=== PATIENT | female | born 1945 | race Caucasian/White ===

== ENCOUNTER 2018-11-05 00:54 | Inpatient (IN) | payer MEDICARE, MEDICAID, OTHER, SELFPAY ==
[2018-11-05] VITALS (17 sets, daily range): BP systolic 90–146; BP diastolic 50–97; PULSE 75–121; RESP 16–40; TEMP 36.2–37.1; O2SAT 85–99; BMI 17.4
--- NOTE | 2018-11-05 01:00 | ED.SOB ---
HPI - SOB/Dyspnea General Chief Complaint: Shortness of Breath/Dyspnea Stated Complaint: Wheezing, Hx COPD Time Seen by Provider: 11/05/18 01:00 Source: EMS Mode of arrival: EMS Limitations: language barrier History of Present Illness The patient resides at [facility]. She has a history of COPD. She has been ill for 4 days, with cough. Dyspnea has increased, tonight with labored breathing. Paramedics were summoned. She has not been receiving regular nebulizers. She presented with dyspnea, and initial O2 sat of 85% on room air. A single nebulizer treatment was administered prior to transfer here. The patient responds with gastric, she obeys commands. She has expressive aphasia, and does not verbally communicate well. She does not indicate chest pain. She does have cough and difficulty breathing. It is not clear, paramedics did not notice purulent phlegm. There was no report of fever with the above symptoms. She is occasionally put on oxygen supplements for care at the nursing facility. Related Data Home Medications Medication Instructions Recorded Confirmed albuterol sulfate [Ventolin HFA] 2 inh IH BIDP PRN #0 01/21/12 11/05/18 paroxetine HCl [Paxil] 5 mg Q DAY #0 01/21/12 11/05/18 acetaminophen 325 mg PO Q4H PRN 11/05/18 11/05/18 albuterol sulfate 2.5 mg INHALATION DAILY 11/05/18 11/05/18 aspirin 81 mg PO DAILY 11/05/18 11/05/18 fluticasone [Flovent HFA] 1 puff INHALATION BID 11/05/18 11/05/18 guaifenesin 1,200 mg PO BID 11/05/18 11/05/18 guaifenesin [Mucinex] 600 mg PO Q12H 11/05/18 11/05/18 ibuprofen 600 mg PO QID PRN 11/05/18 11/05/18 lorazepam 0.5 mg PO DAILY 11/05/18 11/05/18 oxycodone-acetaminophen [Percocet] 1 tab PO Q4HP PRN 11/05/18 11/05/18 pyridoxine (vitamin B6) [Vitamin 50 mg PO DAILY 11/05/18 11/05/18 B-6] Allergies Allergy/AdvReac Type Severity Reaction Status Date / Time naproxen Allergy Intermediate WEAKNESS Verified 11/05/18 01:15 AND SEVERE ITCHING penicillin G Allergy Intermediate SKIN Verified 11/05/18 01:15 REACTION, BURNING PEELING SKIN codeine AdvReac Mild STOMACH Verified 11/05/18 01:15 milk AdvReac Unknown LACTOSE Verified 11/05/18 01:15 INTOLERANCE Review of Systems Review of Systems ROS Unobtainable: Other (ROS is limited due to the patient's ability to communicate.) Constitutional Denies chills and Denies fever(s) Cardiovascular Denies chest pain and Reports dyspnea Respiratory Reports dyspnea PFSH Medical History Expressive aphasia (Acute) COPD (chronic obstructive pulmonary disease) (Acute) Social History Smoking Status: Former smoker Exam Initial Vital Signs Initial Vital Signs: Vital Signs Temperature 98.7 F 11/05/18 01:00 Pulse Rate 121 H 11/05/18 01:00 Respiratory Rate 19 11/05/18 01:00 Blood Pressure 140/59 L 11/05/18 01:00 Pulse Oximetry 92 11/05/18 01:00 Const General: cooperative and in distress Nutritional Appearance: malnourished HENDE Mouth: oral mucosae normal Eyes Conjunctivae: conjunctivae normal Neck Neck: supple, No tender and No JVD Chest Chest: normal inspection of the chest Resp Effort & Inspection: audible wheezes (Diffuse.) Auscultation: diminished lung sounds Cardio Rate: tachycardic Rhythm: regular rhythm Heart Sounds: S1 normal, S2 normal, no click, no gallops and no murmurs GI Inspection: normal to inspection and other (No palpable tenderness) Palpation: soft and No guarding Auscultation: normal bowel sounds Skin General: no rashes or lesions noted Extrem General: normal to inspection, no pedal edema and other Course Orders Ordered: ED Orders 11/05/18 00:48 B Type Natriuretic Peptide Stat Basic Metabolic Panel Stat Complete Blood Count AUTO DIFF Stat Magnesium Stat Troponin & CK Cardiac Panel Stat 11/05/18 01:04 Consult to Respiratory Therapy Evaluate & Treat EKG-12 Lead Stat 11/05/18 01:05 XR chest 1V Stat 11/05/18 01:45 Lactate (Lactic Acid) Stat 11/05/18 01:50 Influenza A and B by PCR Rapid Stat 11/05/18 01:58 Blood Culture Stat Discontinued Medications Albuterol (Ventolin) 2.5 mg INH NOW ONE Stop: 11/05/18 01:05 Last Admin: 11/05/18 01:08 Dose: 2.5 mg Albuterol/Ipratropium (Duoneb) 3 ml INH NOW ONE Stop: 11/05/18 01:05 Last Admin: 11/05/18 01:08 Dose: 3 ml Methylprednisolone (Solu-Medrol 125 Mg Vial) 125 mg IV NOW ONE Stop: 11/05/18 01:05 Last Admin: 11/05/18 01:18 Dose: 125 mg Vital Signs - 8 hr 11/05/18 01:00 11/05/18 01:04 11/05/18 01:06 Temperature 98.7 F 98.7 F Pulse Rate 121 H 117 H 121 H Respiratory Rate 19 40 H 19 Blood Pressure 140/59 L Blood Pressure [Left Arm] 140/59 L Pulse Oximetry 92 95 99 11/05/18 01:30 11/05/18 02:11 11/05/18 03:13 Temperature Pulse Rate 120 H 121 H 109 H Respiratory Rate 30 H 25 H 22 Blood Pressure Blood Pressure [Left Arm] 121/91 H 108/52 L 108/51 L Pulse Oximetry 95 94 92 11/05/18 04:13 11/05/18 04:52 Temperature Pulse Rate 101 H 101 H Respiratory Rate 20 24 Blood Pressure 126/55 L Blood Pressure [Left Arm] 112/62 Pulse Oximetry 85 L 95 MDM - SOB/Dyspnea Lab Data Result diagrams: 11/05/18 00:48 11/05/18 00:48 Lab Results 11/05/18 11/05/18 11/05/18 Range/Units 00:48 00:48 01:45 WBC 10.3 (4.5-11.0) X10^3/uL RBC 4.95 (4.0-5.2) X10^6/uL Hgb 15.0 (12.0-16.0) g/dL Hct 45.7 (36-46) % MCV 92.4 (80-100) fL MCH 30.4 (26-34) PG MCHC 32.9 (30-36) % RDW 14.6 (11.6-14.8) % Plt Count 249 (150-400) X10^3/uL Neut % (Auto) 78.4 H (50-75) % Lymph % (Auto) 11.3 L (25-40) % Ponce % (Auto) 9.3 (3-14) % Eos % (Auto) 0.8 L (2-4) % Baso % (Auto) 0.2 (0-2) % Neut # (Auto) 8100 H (6942-0806) /uL Lymph # (Auto) 1200 (1808-8236) /uL Ponce # (Auto) 1000 H (0-900) /uL Eos # (Auto) 100 (0-450) /uL Baso # (Auto) 0 (0-100) /uL Sodium 137 (137-145) mmol/L Potassium 4.3 (3.4-5.1) mmol/L Chloride 97 L (98-107) mmol/L Carbon Dioxide 30 (22-32) mmol/L BUN 13 (7-17) mg/dL Creatinine 0.60 (0.52-1.04) mg/dL Estimated GFR > 60.0 (>60) mL/min BUN/Creatinine Ratio 21.7 (6-22) Glucose 134 H (80-110) mg/dL Lactate 1.4 (0.7-2.1) mmol/L Calcium 9.5 (8.4-10.2) mg/dL Magnesium 1.7 (1.6-2.3) mg/dL Total Creatine Kinase 104 (30-135) U/L CK-MB (CK-2) 3.90 H (<2.37) ng/mL CK-MB (CK-2) Rel Index 3.8 (1.5-5.0) % Troponin I < 0.012 (0.01-0.034) ng/mL B-Natriuretic Peptide < 100 (<100) Influenza A & B (PCR) (Negative) 11/05/18 Range/Units 01:50 WBC (4.5-11.0) X10^3/uL RBC (4.0-5.2) X10^6/uL Hgb (12.0-16.0) g/dL Hct (36-46) % MCV (80-100) fL MCH (26-34) PG MCHC (30-36) % RDW (11.6-14.8) % Plt Count (150-400) X10^3/uL Neut % (Auto) (50-75) % Lymph % (Auto) (25-40) % Ponce % (Auto) (3-14) % Eos % (Auto) (2-4) % Baso % (Auto) (0-2) % Neut # (Auto) (1323-0171) /uL Lymph # (Auto) (7242-6500) /uL Ponce # (Auto) (0-900) /uL Eos # (Auto) (0-450) /uL Baso # (Auto) (0-100) /uL Sodium (137-145) mmol/L Potassium (3.4-5.1) mmol/L Chloride (98-107) mmol/L Carbon Dioxide (22-32) mmol/L BUN (7-17) mg/dL Creatinine (0.52-1.04) mg/dL Estimated GFR (>60) mL/min BUN/Creatinine Ratio (6-22) Glucose (80-110) mg/dL Lactate (0.7-2.1) mmol/L Calcium (8.4-10.2) mg/dL Magnesium (1.6-2.3) mg/dL Total Creatine Kinase (30-135) U/L CK-MB (CK-2) (<2.37) ng/mL CK-MB (CK-2) Rel Index (1.5-5.0) % Troponin I (0.01-0.034) ng/mL B-Natriuretic Peptide (<100) Influenza A & B (PCR) Negative (Negative) Imaging Data Chest x-ray: Attestation: I personally reviewed and interpreted this imaging study as follows: (Advanced COPD with hyperinflation and flattening of the diaphragms. No infiltrate seen. No change since her last chest x-ray.) ECG Data Attestation: I personally reviewed and interpreted this ECG as follows: (Sinus tachycardia rate 128. Diffuse ST depression, no ST elevation. No ectopy. Normal intervals.) [facility] Narrative Medical decision making narrative: The patient has COPD. She has had cough for 4 days, O2 sats decreased 85% when paramedics arrived. Oxygenation improved with neb treatments as well as O2 given by NG. COPD exacerbation was obvious on the initial presentation to ER. She was treated with repeat nebulized treatments as well as IV Solu-Medrol. Labs and chest x-ray showed no evidence of acute infection. She does not have influenza. Although improved on exam with clear lungs, her O2 sats dropped to 85% on room air. She still complains of dyspnea. With O2 nasal cannula her back in place, her O2 sats are back up to 92%. She will require admission for ongoing management of COPD and to improve. I contacted the hospitalist, ESTELLA Mark. The patient will be admitted Discharge Plan Departure Patient Disposition: Admitted as Observation Clinical Impression: Acute exacerbation of chronic obstructive pulmonary disease (COPD) Discharge Date/Time: 11/05/18 05:02 Interventions: ED Discharge Assessment Last Done: 11/05/18 04:52 Admit Date/Time: 11/05/18 04:56 Admit Provider: Graciela Mark
--- NOTE | 2018-11-05 01:05 | DI.RAD.S_ITS ---
PROCEDURE: XR CHEST 1V INDICATIONS: Dyspnea. History of Chronic obstructive pulmonary disease TECHNIQUE: One view of the chest was acquired. COMPARISON: [facility], CHEST 1 VIEW, 03/31/2017, 5:46. [facility], , CHEST 1 VIEW, 03/28/2017, 11:49. FINDINGS: Surgical changes and devices: None. Lungs and pleura: No pleural effusions or pneumothorax. Lungs are hyperexpanded and no mass or pneumonia is found. Mediastinum: Mediastinal contours appear normal. Heart size is normal. Bones and chest wall: No suspicious bony lesions. Overlying soft tissues appear unremarkable. IMPRESSION: No roll changer time, COPD, no pneumonia. Dictated by: Cory Kelly M.D. on 11/05/2018 at 7:40 Approved by: Cory Kelly M.D. on 11/05/2018 at 7:41
[2018-11-05] MEDS: ALBUTEROL 2.5 MG/3 ML NEB (ADULT) INH (01:08)
[2018-11-05] MEDS: ALBUTEROL/IPRATROPIUM 3 ML AMPUL INH ×4 (01:08→16:23)
[2018-11-05 01:16] LABS: Add Manual Diff / Slide Review NO; Basophils Absolute Auto 0 /uL (0-100); Basophils Percent Auto 0.2 % (0-2); Eosinophils Absolute Auto 100 /uL (0-450); Eosinophils Percent Auto 0.8 % (2-4); Hematocrit 45.7 % (36-46); Lymphocytes Absolute Auto 1200 /uL (1100-4500); Lymphocytes Percent Auto 11.3 % (25-40); Mean Corpuscular HGB Conc 32.9 % (30-36); Mean Corpuscular Hemoglobin 30.4 PG (26-34); Mean Corpuscular Volume 92.4 fL (80-100); Monocytes Absolute Auto 1000 /uL (0-900); Monocytes Percent Auto 9.3 % (3-14); Neutrophils Absolute Auto 8100 /uL (1500-7000); Neutrophils Percent Auto 78.4 % (50-75); Platelet Count 249 X10^3/uL (150-400); Red Blood Cell Count 4.95 X10^6/uL (4.0-5.2); Red Cell Distribution Width 14.6 % (11.6-14.8); White Blood Cell Count 10.3 X10^3/uL (4.5-11.0)
[2018-11-05 01:18] LABS: BUN Creatinine Ratio 21.7 (6-22); Blood Urea Nitrogen 13 mg/dL (7-17); Calcium 9.5 mg/dL (8.4-10.2); Carbon Dioxide 30 mmol/L (22-32); Chloride 97 mmol/L (98-107); Creatine Kinase 104 U/L (30-135); Estimated Glomerular Filt Rate > 60.0 mL/min (>60); Glucose 134 mg/dL (80-110); Magnesium 1.7 mg/dL (1.6-2.3); Potassium 4.3 mmol/L (3.4-5.1); Sodium 137 mmol/L (137-145)
[2018-11-05] MEDS: methylPREDNISolone 125 MG/2 ML VIAL IV (01:18)
[2018-11-05 01:25] LABS: HEMOLYSIS 57 (0-50)
[2018-11-05 01:33] LABS: CKMB % Relative Index 3.8 % (1.5-5.0)
[2018-11-05 01:37] LABS: Troponin I < 0.012 ng/mL (0.01-0.034)
[2018-11-05 01:48] LABS: B Type Natriuretic Peptide < 100 (<100)
[2018-11-05 02:05] LABS: Lactate (Lactic Acid) 1.4 mmol/L (0.7-2.1)
[2018-11-05 02:11] LABS: Influenza A and B by PCR Rapid Negative (Negative)
--- NOTE | 2018-11-05 04:55 | P.HP_ITS ---
History of Present Illness Chief complaint: Wheezing, Hx COPD Narrative: The patient is a 73-year-old female who presented to the ED on 11/05/2018 at approximately 0100 with shortness of breath. Patient's PMH is significant for COPD, nocturnal O2 dependence, PRIOR history of tobacco dependence, and anxiety / depression. Initial symptom noted to be cough, chest congestion, and inability to bring up phlegm. She was instructed to increase fluid intake by provider at [facility] where she resides. No other interventions noted. Patient continues to have a cough, now w / increased frequency and difficulty expectorating phlegm. Associated symptoms include exertional dyspnea, increase use of O2 (now during the day and night), chest discomfort with cough only, dizziness / lightheadedness, cramping of lower extremities, and increase in fatigue. Denies fever, chills, chest pressure / tightness, hemoptysis, palpitations, unilateral leg edema, syncopal events, dyspepsia, nausea, or vomiting. Denies symptoms of cystitis and symptoms of blood loss per rectum. Reports diminished appetite and fluid intake. COPD is well controlled by reports, typically has 0-1 exacerbations per year. This is her first exacerbation this year. Reports up-to-date status on PNA and influeza vaccination. No prior h/o PE or DVT, cardiac problems, or cerebrovascular disease. Known to have baseline expressive aphasia (reason is not clear). Has not experienced focal deficits or unilateral weakness. Presented to the ED with tachycardia, tachypnea, labored respiratory effort / accessory muscle use, wheezing and hypoxia (SpO2 85% on RA). Cognition intact w / confusion or lethargy. Patient is known to have expressive aphagia. VS on presentation? T 98.7 BP 140/59 HR 117-121 RR 40 SpO2 92% on 2L O2. In ED received Solumedrol 125 mg IV, nebulized albuterol and a Duo-Neb treatment in ED , w/ partial improvement. PMH: asthma, COPD, nocturnal O2 dependence, PRIOR tobacco dependence, h/o left pneumothorax 03/2017, non-displaced left 9th rib fx, PSH: hysterectomy FHx: mother and father, no known health history; sons known to have hemophilia SHx: resides at [facility]. Known to have prior h/o tobacco dependence. Denies current EtOH or recreational drug use. Patient History Medical History Anxiety and depression (Chronic) Expressive aphasia (Chronic) Asthma (Chronic) Dependence on nocturnal oxygen therapy (Chronic) COPD (chronic obstructive pulmonary disease) (Acute) Family & Social History Family History: Reviewed 11/05/18 by ESTELLA Lipscomb Tobacco & Substance use: Smoking Status Former smoker Meds Home Medications Medication Instructions Recorded Confirmed Type albuterol sulfate [Ventolin HFA] 2 inh IH BIDP PRN #0 01/21/12 11/05/18 History paroxetine HCl [Paxil] 5 mg Q DAY #0 01/21/12 11/05/18 History acetaminophen 325 mg PO Q4H PRN 11/05/18 11/05/18 History albuterol sulfate 2.5 mg INHALATION DAILY 11/05/18 11/05/18 History aspirin 81 mg PO DAILY 11/05/18 11/05/18 History fluticasone [Flovent HFA] 1 puff INHALATION BID 11/05/18 11/05/18 History guaifenesin 1,200 mg PO BID 11/05/18 11/05/18 History guaifenesin [Mucinex] 600 mg PO Q12H 11/05/18 11/05/18 History ibuprofen 600 mg PO QID PRN 11/05/18 11/05/18 History lorazepam 0.5 mg PO DAILY 11/05/18 11/05/18 History oxycodone-acetaminophen [Percocet] 1 tab PO Q4HP PRN 11/05/18 11/05/18 History pyridoxine (vitamin B6) [Vitamin 50 mg PO DAILY 11/05/18 11/05/18 History B-6] Allergies Allergy/AdvReac Type Severity Reaction Status Date / Time naproxen Allergy Intermediate WEAKNESS Verified 11/05/18 01:15 AND SEVERE ITCHING penicillin G Allergy Intermediate SKIN Verified 11/05/18 01:15 REACTION, BURNING PEELING SKIN codeine AdvReac Mild STOMACH Verified 11/05/18 01:15 milk AdvReac Unknown LACTOSE Verified 11/05/18 01:15 INTOLERANCE Review of Systems Review of Systems All systems reviewed & are unremarkable except as noted in HPI and below Exam Vital Signs (past 8 hours): - 11/05/18 01:00 11/05/18 01:04 11/05/18 01:06 Temperature 98.7 F 98.7 F Pulse Rate 121 H 117 H 121 H Respiratory Rate 19 40 H 19 Blood Pressure 140/59 L Blood Pressure [Left Arm] 140/59 L Pulse Oximetry 92 95 99 11/05/18 01:30 11/05/18 02:11 11/05/18 03:13 Temperature Pulse Rate 120 H 121 H 109 H Respiratory Rate 30 H 25 H 22 Blood Pressure Blood Pressure [Left Arm] 121/91 H 108/52 L 108/51 L Pulse Oximetry 95 94 92 11/05/18 04:13 Temperature Pulse Rate 101 H Respiratory Rate 20 Blood Pressure Blood Pressure [Left Arm] 112/62 Pulse Oximetry 85 L Oxygen Delivery Method Room Air Oxygen Flow Rate 2 Narrative Exam Narrative: [id number] respiratory distress, increased w/ activity / converstion, tires easily, cachectic in appearance NC/AT, gaze conjugate, EOMI, no facial asymmetry, hearing acuity diminished, dry MM No JVD, no lymphadenopathy Rales bilaterally, poor aeration, no accessory muscle use, on 2L supplemental o2 , tachypneic RR 26, cough non-productive S1S2, no murmur No LE edema, bi-pedal pulses intact Abdomen NT, ND, no ascites or s/s of hepatic congestion, no CVA, diminished BS Overall sallow skin tone, no overt bruising or pressure ulcers noted AOx3, no facial asymmetry or unilateral weakness Mildly anxious Objective Labs Result Diagrams: 11/05/18 00:48 11/05/18 00:48 Labs: Laboratory Results - last 24 hr 11/05/18 11/05/18 11/05/18 00:48 00:48 01:45 WBC 10.3 RBC 4.95 Hgb 15.0 Hct 45.7 MCV 92.4 MCH 30.4 MCHC 32.9 RDW 14.6 Plt Count 249 Neut % (Auto) 78.4 H Lymph % (Auto) 11.3 L Pike % (Auto) 9.3 Eos % (Auto) 0.8 L Baso % (Auto) 0.2 Neut # (Auto) 8100 H Lymph # (Auto) 1200 Pike # (Auto) 1000 H Eos # (Auto) 100 Baso # (Auto) 0 Sodium 137 Potassium 4.3 Chloride 97 L Carbon Dioxide 30 BUN 13 Creatinine 0.60 Estimated GFR > 60.0 BUN/Creatinine Ratio 21.7 Glucose 134 H Lactate 1.4 Calcium 9.5 Magnesium 1.7 Total Creatine Kinase 104 CK-MB (CK-2) 3.90 H CK-MB (CK-2) Rel Index 3.8 Troponin I < 0.012 B-Natriuretic Peptide < 100 Influenza A & B (PCR) 11/05/18 01:50 WBC RBC Hgb Hct MCV MCH MCHC RDW Plt Count Neut % (Auto) Lymph % (Auto) Pike % (Auto) Eos % (Auto) Baso % (Auto) Neut # (Auto) Lymph # (Auto) Pike # (Auto) Eos # (Auto) Baso # (Auto) Sodium Potassium Chloride Carbon Dioxide BUN Creatinine Estimated GFR BUN/Creatinine Ratio Glucose Lactate Calcium Magnesium Total Creatine Kinase CK-MB (CK-2) CK-MB (CK-2) Rel Index Troponin I B-Natriuretic Peptide Influenza A & B (PCR) Negative Assessment & Plan Plan: Assessment/Plan Narrative: Acute on chronic COPD exacerbation CXR: Advanced COPD with hyperinflation and flattening of the diaphragms. No infiltrate seen. No change since her last chest x-ray. - Consult RT, eval / treat - Supplemental O2, titrate for SpO2 goal of 89-92% - Obtain baseline ABG, re: severe exacerbation w/ potential for decompensation - DuoNeb Q4H x24 hours, then re-evaluate / adjust frequency - Solumedrol 40 mg IV Q12H x24-72 hours pending improvement, then titrate / transition to a 5 day oral regimen - Start on Mucinex and PEP / flutter valve therapy; Start on Singulair - Empiric therapy, will hold off at this time as no worsening cough or increase in purulence - CBC, BMP, Trop, and BNP WNL, will need to obtain BMP and Mg periodically in the setting of frequent albuterol treatments - Respiratory viral panel (STAT) and Sputum cx, if able - Reports UTD influenza vaccination - IVF x1L - Supportive care. No NSAIDs. 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 Asthma Potentially exacerbated in the setting of underlying COPD - see plan of care for 'copd exacerbation' - respiratory viral panel - Start on singulair 10 mg at bedtime Anxiety / Depression, controlled w/ Paxil - need to verify dose, at home 5 mg QD (seem abnormally low, will need to verify med dose before continued) Code status discussed. Patient wishes to be full code. No formal health directive in place. Designates daughter, Fay Whittaker, as a surrogate decision maker.
--- NOTE | 2018-11-05 06:57 | PC.NURSE ---
Patient states she is full code, awaiting sputum specimen, Can communicate with her wipe off board, or can reply at times. IV lost upon arrival to room, discontinued canulla intact.
--- NOTE | 2018-11-05 08:37 | CM.DANOTE ---
DCP: Case received, EMR reviewed and checked on patient. Nurse was assessing lung sounds. Name placed on white board in room. Called Idalia, alok for [place], for information on patient. DCP template completed with information currently available. Patient is a 73 year old female who admitted early this morning to the care of the hospitalist team. PCP: Dr. Loving/. Family provider: Dr. Perez. Payer: confirmed: Medicare/Medicaid. Patient came to hospital from [facility] via ambulance due to increased shortness of breath. Patient has history of COPD. Has oxygen at [facility], but according to admissions, Idalia, she does not use all the time. She also has history of tobacco use, and has some aphasia as well. Patient carries diagnosis of exacerbated COPD. When she arrived at hospital, her oxygen sats were 85% on room air, and she had tachycardia. Spoke to Idalia about her baseline care. Stated that she uses a FWW, and is independent in her apartment. As previously noted, she has oxygen in her room if needed. She does have some help with showers as well. Has a daughter that lives here in [place]. Patient also uses a white board to communicate, since she has trouble speaking at times. P: DCP to continue to assess. Should be able to return to [facility] when stable. Twyla Mcclain RN/Gas Station [employer]
[2018-11-05] MEDS: OXYCODONE/ACETAMINOPHEN 5/325 TABLET 1 TAB PO ×2 (09:00→17:10)
[2018-11-05 09:42] LABS: Adenovirus Not Detected (Not Detect); Bordetella pertussis Not Detected (Not Detect); Chlamydophila pneumoniae Not Detected (Not Detect); Coronavirus 229E Not Detected (Not Detect); Coronavirus HKU1 Not Detected (Not Detect); Coronavirus NL 63 Not Detected (Not Detect); Coronavirus OC43 Not Detected (Not Detect); Human Metapneumovirus Not Detected (Not Detect); Human Rhinovirus/Enterovirus Not Detected (Not Detect); Influenza A Not Detected (Not Detect); Influenza B Not Detected (Not Detect); Mycoplasma pneumoniae Not Detected (Not Detect); Parainfluenza Virus 1 Not Detected (Not Detect); Parainfluenza Virus 2 Not Detected (Not Detect); Parainfluenza Virus 3 Not Detected (Not Detect); Parainfluenza Virus 4 Not Detected (Not Detect); Respiratory Syncytial Virus Detected (Not Detect)
--- NOTE | 2018-11-05 11:01 | PM.EVENT ---
Date Patient Seen: 11/05/18 Patient seen and examined, chart reviewed. Patient continues to have shortness of breath and some wheezing. Her major complaint this morning is cramping in her legs. She will be started on magnesium and quinine at night for this. Will continue current treatment as outlined above.
[2018-11-05] MEDS: SODIUM CHLORIDE 0.9% 1,000 ML 75 ML IV (11:07)
[2018-11-05] MEDS: guaiFENesin ER 600 MG TAB 1200 MG PO ×2 (11:18→21:31)
[2018-11-05] MEDS: MONTELUKAST 10 MG TABLET PO (11:19)
[2018-11-05] MEDS: methylPREDNISolone 125 MG/2 ML VIAL 60 MG IV ×2 (11:19→21:31)
[2018-11-05] MEDS: MAGNESIUM OXIDE 400 MG TABLET PO (12:23)
[2018-11-05 14:07] LABS: HCO3 ABG 27 mmol/L (22-26); PCO2 ABG 47.3 mmHg (35-45); PO2 ABG 78 mmHg (80-100); TCO2 ABG 28 mmol/L (21-31); pH ABG 7.36 (7.35-7.45)
[2018-11-05 14:08] LABS: Fractionated Inspired Oxygen 2; Oxygen Saturation ABG 95 % (95-100)
[2018-11-06] VITALS (14 sets, daily range): BP systolic 95–141; BP diastolic 51–76; PULSE 73–118; RESP 16–22; TEMP 36.4–37.1; O2SAT 85–98
[2018-11-06] MEDS: SODIUM CHLORIDE 0.9% 1,000 ML 75 ML IV (00:09)
--- NOTE | 2018-11-06 00:32 | PC.NURSE ---
Pt up to BR with SBA. Upon return to bed noted desaturations down to 78% sustaining. RT called to bedside, placed on mask. Bedside pulse ox continues to read 88% on 15L, RT with single pulse oximetry showing 97-99%. Pt denies SOB after about 2 min. Replaced oximetry probe with readings currently of 92-93% on 2L. Will monitor closely.
[2018-11-06] MEDS: ALBUTEROL/IPRATROPIUM 3 ML AMPUL INH ×4 (06:14→20:11)
--- NOTE | 2018-11-06 08:59 | PM.PN.1 ---
Subjective Date Patient Seen: 11/06/18 Interval history: The patient is a 73-year-old female who presented to the ED on 11/05/2018 with shortness of breath. Patient's PMH is significant for COPD, nocturnal O2 dependence, PRIOR history of tobacco dependence, and anxiety / depression. Initial symptom noted to be cough, chest congestion, and inability to bring up phlegm. She continued to have a cough, w/ increased frequency and difficulty expectorating phlegm. Associated symptoms include exertional dyspnea, increase use of O2 (now during the day and night), chest discomfort with cough only, dizziness / lightheadedness, cramping of lower extremities, and increase in fatigue. Denies fever, chills, chest pressure / tightness, hemoptysis, palpitations, unilateral leg edema, syncopal events, dyspepsia, nausea, or vomiting. She had a poor night sleep, But is feeling moderately better. Despite being aphasic and using a writing board, she clearly stated that I cannot be understood Exam Vital Signs (past 8 hours): - 11/06/18 05:00 11/06/18 06:14 11/06/18 07:25 Temperature 97.6 F Pulse Rate 73 78 79 Respiratory Rate 16 18 20 Blood Pressure 109/51 L 95/58 L Pulse Oximetry 94 93 93 Oxygen Delivery Method Nasal Cannula Oxygen Flow Rate 3 Const General: cooperative, frail appearing and ill appearing Nutritional Appearance: underweight Orientation: alert and awake Limitations: altered mental status Other: Previously noted expressive aphasia evident as the patient writes down her thoughts, but will talk in single word or short sentences on occasion. [facility] Head: normal to inspection, normocephalic and atraumatic Ears: external ears normal Nose: external nose normal and nares normal Face and sinus: normal facial exam Mouth: oral mucosae normal and lip normal Eyes General: appearance normal, both eyes and all related structures Neck Neck: normal visual inspection Resp Effort & Inspection: normal respiratory effort and audible wheezes Auscultation: clear to auscultation bilaterally and wheezes Cardio Palpation: normal PMI Rate: regular rate Rhythm: regular rhythm Heart Sounds: S1 normal, S2 normal, no click, no gallops, no murmurs and no rubs GI Inspection: normal to inspection and no edema Palpation: No soft, No firm, No guarding and No hepatomegaly Neuro Cognition: normal cognition Speech: expressive aphasia and no receptive aphasia Extrem General: normal to inspection Psych Appearance: grossly normal Objective Labs Result Diagrams: 11/05/18 00:48 11/05/18 00:48 Labs: Laboratory Results - last 24 hr 11/05/18 11/05/18 07:19 13:32 ABG pH 7.36 ABG pCO2 47.3 H ABG pO2 78 L ABG HCO3 27 H ABG Total CO2 28 ABG O2 Saturation 95 ABG Base Excess 1.0 FiO2 2 Chlamy pneumoniae PCR Not detected Adenovirus (PCR) Not detected B.parapertussis DNA PCR Not detected Coronavirus OC43 (PCR) Not detected Coronavirus HKU1 (PCR) Not detected Coronavirus 229E (PCR) Not detected Coronavirus NL63 (PCR) Not detected Human Metapneumovir PCR Not detected Influenza Type A (PCR) Not detected Influenza Type B (PCR) Not detected M. pneumoniae (PCR) Not detected Parainfluenza 1 (PCR) Not detected Parainfluenza 2 (PCR) Not detected Parainfluenza 3 (PCR) Not detected Parainfluenza 4 (PCR) Not detected RSV (PCR) Detected H Entero/Rhino (PCR) Not detected Assessment & Plan Plan: Assessment/Plan Narrative: - Acute on chronic COPD exacerbation, POA, Active - CXR: Advanced COPD with hyperinflation and flattening of the diaphragms. No infiltrate seen. No change since her last chest x-ray. - ABG: Baseline CO2 retention - Consult RT, eval / treat - Supplemental O2, titrate for SpO2 goal of 89-92% - DuoNeb Q4H x24 hours, then re-evaluate / adjust frequency - Solumedrol 60 mg IV Q12H x24-72 hours pending improvement, then titrate / transition to a 5 day oral regimen - Continue on Mucinex and PEP / flutter valve therapy; continue Singulair - Respiratory viral panel was only positive for RSV, Sputum culture pending. - Empiric therapy, will hold off at this time as no worsening cough or increase in purulence, - CBC, BMP, Trop, and BNP WNL, will need to obtain BMP and Mg periodically in the setting of frequent albuterol treatments - Reports UTD influenza vaccination - IVF x1L - Supportive care. No NSAIDs. 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 - Asthma, POA, acute -Potentially exacerbated in the setting of underlying COPD - see plan of care for 'copd exacerbation' -Anxiety / Depression, controlled w/ Paxil, POA chronic - Paxil 20 mg QD PO - leg cramps, not present on admission, acute - Will continue Mg and quinine -Mg lab pending Aphasia - POA, Chronic -Patient expresses her thoughts with a whiteboard and will voice some words verbally though she seems uncomfortable speaking. Quality VTE Deep Vein Thrombosis/Pulmonary Embolism Present on Admission: No
[2018-11-06] MEDS: methylPREDNISolone 125 MG/2 ML VIAL 60 MG IV ×2 (09:18→21:34)
[2018-11-06] MEDS: MAGNESIUM OXIDE 400 MG TABLET PO (09:19)
[2018-11-06] MEDS: MONTELUKAST 10 MG TABLET PO (09:19)
[2018-11-06] MEDS: guaiFENesin ER 600 MG TAB 1200 MG PO ×2 (09:19→21:34)
[2018-11-06] MEDS: LORazepam 0.5 MG TABLET PO (11:36)
--- NOTE | 2018-11-06 11:39 | PC.NURSE ---
Day shift 11/06/18 Pt c/o SOB, found to have no O2 connected to nasal canula, sats were 85%. O2 was applied at 4L and O2 sats came up to 95%, RT was notified and changed rate to 1L sats were 96%. Pt reported feeling anxious and requested home medication paxil, Dr was notified and new orders were placed, new orders were placed also for a one time dose of ativan for anxiety.
[2018-11-06] MEDS: PARoxetine 10 MG TABLET 20 MG PO (11:52)
[2018-11-06] MEDS: ENOXAPARIN 30 MG/0.3 ML SYRINGE SUBCUT (17:06)
[2018-11-06] MEDS: OXYCODONE/ACETAMINOPHEN 5/325 TABLET 1 TAB PO (18:25)
[2018-11-07] VITALS (9 sets, daily range): BP systolic 134–153; BP diastolic 54–84; PULSE 84–94; RESP 16–26; TEMP 36.3–36.8; O2SAT 91–96
--- NOTE | 2018-11-07 08:31 | P.PN_ITS ---
Subjective Date Patient Seen: 11/07/18 Time Patient Seen: 08:45 Interval history: She is seen today to follow-up her COPD with hypoxia, anxiety , depression and expressive deliberate aphasia. The patient is a 73-year-old female who presented to the ED on 11/05/2018 with shortness of breath. Patient's PMH is significant for COPD, nocturnal O2 dependence, PRIOR history of tobacco dependence, and anxiety / depression. Initial symptom noted to be cough, chest congestion, and inability to bring up phlegm. She continued to have a cough, w/ increased frequency and difficulty expectorating phlegm. Associated symptoms include exertional dyspnea, increase use of O2 ( now during the day and night), chest discomfort with cough only, dizziness / lightheadedness, cramping of lower extremities, and increase in fatigue. Denies fever, chills, chest pressure / tightness, hemoptysis, palpitations, unilateral leg edema, syncopal events, dyspepsia, nausea, or vomiting. She has her head covered with a blanket, moans a little and stirs very little when I introduce myself and examine her this morning. Despite being aphasic and using a writing board, she clearly stated to me yesterday that I cannot be understood. She was quite anxious yesterday. She continues to cough incessantly despite her improving lung sounds. Exam Vital Signs (past 8 hours): - 11/07/18 00:35 11/07/18 00:41 11/07/18 05:05 Temperature 97.6 F Pulse Rate 93 H Respiratory Rate 26 H Blood Pressure 141/83 H Pulse Oximetry 96 96 94 11/07/18 06:44 Temperature 98.2 F Pulse Rate 84 Respiratory Rate 16 Blood Pressure 134/83 Pulse Oximetry 93 Oxygen Delivery Method Nasal Cannula Oxygen Flow Rate 2 Narrative Exam Narrative: Her head is covered in a blanket. She does not appear to be in distress. She does not try to speak. She does not try to use her writing board to ask any questions. She is coughing incessantly. Heart is regular rate and rhythm without murmur. Lungs are clear to auscultation bilaterally. Extremities have no ankle edema. Objective Labs Result Diagrams: 11/05/18 00:48 11/05/18 00:48 Assessment & Plan Plan: Assessment/Plan Narrative: - Acute on chronic COPD exacerbation, POA, Active - CXR on admission: Advanced COPD with hyperinflation and flattening of the diaphragms. No infiltrate seen. No change since her last chest x-ray. - ABG: Baseline CO2 retention - continue RT, eval / treat - Supplemental O2, titrate for SpO2 goal of 89-92% - DuoNeb Q4H as needed - Solumedrol 60 mg IV Q12H appears to be effective with plans to then titrate / transition to a 5 day oral regimen - Continue on Mucinex and PEP / flutter valve therapy; continue Singulair - Respiratory viral panel was only positive for RSV, Sputum culture pending. - Empiric therapy, will hold off at this time as no worsening cough or increase in purulence, - CBC, BMP, Trop, and BNP WNL, will need to obtain BMP and Mg periodically in the setting of frequent albuterol treatments - Reports UTD influenza vaccination - Supportive care. No NSAIDs. 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 - Asthma, POA, acute -Potentially exacerbated in the setting of underlying COPD - see plan of care for 'copd exacerbation' -Anxiety / Depression, controlled w/ Paxil, POA chronic - Paxil 20 mg QD PO - leg cramps, not present on admission, acute - Will continue Mg as quinine is not available on formulary. Aphasia - POA, Chronic -Patient expresses her thoughts with a whiteboard and will voice some words verbally though she seems uncomfortable speaking. Disposition is return to SNF setting in 1-2 days. Kalin Juarez MD Quality VTE Deep Vein Thrombosis/Pulmonary Embolism Present on Admission: No
[2018-11-07] MEDS: MAGNESIUM OXIDE 400 MG TABLET PO (09:13)
[2018-11-07] MEDS: MONTELUKAST 10 MG TABLET PO (09:14)
[2018-11-07] MEDS: PARoxetine 10 MG TABLET 20 MG PO (09:14)
[2018-11-07] MEDS: guaiFENesin ER 600 MG TAB 1200 MG PO ×2 (09:14→21:14)
[2018-11-07] MEDS: methylPREDNISolone 125 MG/2 ML VIAL 60 MG IV ×2 (09:15→21:14)
[2018-11-07] MEDS: ENOXAPARIN 30 MG/0.3 ML SYRINGE SUBCUT (09:16)
[2018-11-08] VITALS (11 sets, daily range): BP systolic 129–166; BP diastolic 69–82; PULSE 78–114; RESP 20–22; TEMP 36.2–36.6; O2SAT 87–96
--- NOTE | 2018-11-08 | DI.RAD.S_ITS ---
PROCEDURE: XR CHEST 2V INDICATIONS: COPD TECHNIQUE: 2 views of the chest were acquired. COMPARISON: [facility], , XR CHEST 1V, 11/05/2018, 1:10. FINDINGS: Surgical changes and devices: None. Lungs and pleura: Hyperinflation consistent with COPD. No pleural effusions or pneumothorax. Lungs are clear. Mediastinum: Mediastinal contours are normal. Heart size is normal. Bones and chest wall: No suspicious bony abnormalities. Soft tissues appear unremarkable. IMPRESSION: 1. No acute cardiopulmonary disease. 2. COPD. Dictated by: Keesha Best M.D. on 11/08/2018 at 12:23 Approved by: Keesha Best M.D. on 11/08/2018 at 12:24
[2018-11-08] MEDS: ALBUTEROL/IPRATROPIUM 3 ML AMPUL INH ×3 (07:24→19:17)
--- NOTE | 2018-11-08 10:02 | PM.PN.1 ---
Subjective Date Patient Seen: 11/08/18 Time Patient Seen: 10:02 Interval history: She is seen today to follow-up her COPD with hypoxia, anxiety, depression and expressive deliberate aphasia. The patient is a 73-year-old female who presented to the ED on 11/05/2018 with shortness of breath. Patient's PMH is significant for COPD, nocturnal O2 dependence, PRIOR history of tobacco dependence, and anxiety / depression. Initial symptom noted to be cough, chest congestion, and inability to bring up phlegm. She continued to have a cough, w/ increased frequency and difficulty expectorating phlegm. Her voice today sounds quite strained, typical for vocal cord dysfunction/partial paralysis. She talks a lot more today than she did yesterday. It still seems to take quite a bit of effort to breathe and she is doing a lot of coughing despite the normal breath sounds on exam. Despite being aphasic and using a writing board, she clearly stated to me on admission that I cannot be understood. She is less anxious today. She continues to cough incessantly despite her improving lung sounds. Exam Vital Signs (past 8 hours): - 11/08/18 05:37 11/08/18 07:24 11/08/18 07:51 Temperature 97.6 F 97.2 F L Pulse Rate 93 H 81 106 H Respiratory Rate 20 22 20 Blood Pressure 143/80 H 135/69 Pulse Oximetry 94 93 93 Fraction of Inspired Oxygen 28 Oxygen Delivery Method Nasal Cannula Oxygen Flow Rate 3 Narrative Exam Narrative: She is alert and oriented x3. She is less anxious. She is more vocal and with some practice every word of her short sentences can be understood. No apparent distress. Heart regular rate and rhythm without murmur. Lungs clear to auscultation bilaterally. Extremities no ankle edema. Objective Labs Result Diagrams: 11/05/18 00:48 11/05/18 00:48 Assessment & Plan Plan: Assessment/Plan Narrative: - Acute on chronic COPD exacerbation, POA, Active with probable RSV bronchitis - CXR on admission: Advanced COPD with hyperinflation and flattening of the diaphragms. No infiltrate seen. The x-rays is repeated today and continues to be clear. I have interpreted the films myself. - continue RT, eval / treat - Supplemental O2, titrate for SpO2 goal of 89-92% - DuoNeb Q4H as needed - Solumedrol 60 mg IV Q12H appears to be effective with plans to then titrate / transition to a 5 day oral regimen - Continue on Mucinex and PEP / flutter valve therapy; continue Singulair - Respiratory viral panel was only positive for RSV. No antibiotics needed - CBC, BMP, Trop, and BNP WNL when checked on admission 11/05 - Supportive care. No NSAIDs. 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 - Asthma, POA, acute -Potentially exacerbated in the setting of underlying COPD - see plan of care for 'copd exacerbation' -Anxiety / Depression, controlled w/ Paxil, POA chronic - Paxil 20 mg QD PO - leg cramps, not present on admission, acute - Will continue Mg as quinine is not available on formulary. Aphasia - POA, Chronic -Patient expresses her thoughts with a whiteboard and will voice some words verbally though is uncomfortable speaking. Her speech difficulty sounds like a vocal cord dysfunction. Consider speech therapy. Disposition is return to [facility] in 1 more day. Kalin Juarez MD Quality VTE Deep Vein Thrombosis/Pulmonary Embolism Present on Admission: No
[2018-11-08] MEDS: OXYCODONE/ACETAMINOPHEN 5/325 TABLET 1 TAB PO (10:18)
[2018-11-08] MEDS: methylPREDNISolone 125 MG/2 ML VIAL 60 MG IV ×2 (10:20→21:53)
[2018-11-08] MEDS: MAGNESIUM OXIDE 400 MG TABLET PO (10:20)
[2018-11-08] MEDS: guaiFENesin ER 600 MG TAB 1200 MG PO ×2 (10:20→21:56)
[2018-11-08] MEDS: ENOXAPARIN 30 MG/0.3 ML SYRINGE SUBCUT (10:21)
[2018-11-08] MEDS: MONTELUKAST 10 MG TABLET PO (10:22)
[2018-11-08] MEDS: PARoxetine 10 MG TABLET 20 MG PO (10:22)
--- NOTE | 2018-11-08 14:41 | CM.DPC ---
DCP: continued: case received and discussed in Team Rounds. Dr. Juarez stated he understood that pt lived in a snf setting. Pt is a resident [facility] in [place]; Dr. Juarez then stated that pt was not yet stable for that setting. P: suggest calling /[facility] tomorrow to see if someone from the facility could assess pt. She does have the INPT admission status and the Medicare coverage for a short snf stay if this is needed. Plan in process
--- NOTE | 2018-11-08 16:50 | PC.NURSE ---
Addendum entered by Lucina Lopez R.N. 11/08/18 19:45: Housekeeping notified to machine pecan picker bed Original Note: Addendum entered by Lucina Lopez R.N. 11/08/18 19:45: Original Note: Addendum entered by Lucina Lopez R.N. 11/08/18 19:23: 1915- Pt's bed is alarming, reads needs servicing. Changed out bed from room 226 to 224, called maintenance to come and get the bed. Alarm will not shut off. Original Note: 1630- Pt A/O x3, 94% 3L nc, LS ronchi wheeze throughout, moist non productive cough intermittently. Droplet isolation status. HTN 166/74, and tachycardic 114. C/O itching, applied lotion to arms, legs, and back, effective, no need for med intervention, forearms, under/top red, with lines and spots appearing as bruises from heavy scratching.
[2018-11-09] VITALS (9 sets, daily range): BP systolic 133–152; BP diastolic 50–94; PULSE 67–89; RESP 16–22; TEMP 36.3–36.7; O2SAT 91–97; BMI 17.6
[2018-11-09] MEDS: OXYCODONE/ACETAMINOPHEN 5/325 TABLET 1 TAB PO (00:57)
[2018-11-09] MEDS: ALBUTEROL/IPRATROPIUM 3 ML AMPUL INH ×2 (04:47→11:32)
[2018-11-09] MEDS: PARoxetine 10 MG TABLET 20 MG PO (09:23)
[2018-11-09] MEDS: ENOXAPARIN 30 MG/0.3 ML SYRINGE SUBCUT (09:23)
[2018-11-09] MEDS: guaiFENesin ER 600 MG TAB 1200 MG PO (09:23)
[2018-11-09] MEDS: MAGNESIUM OXIDE 400 MG TABLET PO (09:23)
[2018-11-09] MEDS: MONTELUKAST 10 MG TABLET PO (09:24)
[2018-11-09] MEDS: SODIUM CHLORIDE 0.9% FLUSH 10 ML IV (09:24)
[2018-11-09] MEDS: methylPREDNISolone 125 MG/2 ML VIAL 60 MG IV (09:24)
--- NOTE | 2018-11-09 10:33 | PC.NURSE ---
Addendum entered by Farzaneh Chung R.N. 11/09/18 15:39: Transfer to [facility]' intact. All personal belongings packed and sent with patient. Transferred on 3L O2. Packet given to transport staff including prescriptions. Report called to Jeanna. [facility] later called back for clarification of whether or not patient needs to be on precautions. It was confusing, because when Dr Ramos talked to Id[facility] earlier she told her that patient does not need to be on droplet precautions, but then she wrote for droplet precautions in her order. This narrative writer called [facility] back and confirmed that patient does NOT need to be on droplet precaution (per Dr Ramos patient should be well beyond the point where she is contagious and any precautions would just be out of an abundance of caution). Original Note: Shift summary: Awake and alert, oriented X3. Expressive aphasia consistent with baseline- she is able to say some words and uses dry-erase board to communicate more effectively. Intermittent nonproductive cough. Rhonchi and wheezes in upper airway, posterior clear but dim. HRR. Denies pain or discomfort. Lotion applied to skin for C/O itching- MD aware and may consider ordering anti-itch meds if appropriate. Able to make needs known and calls appropriately. Light in reach, bed alarm on.
--- NOTE | 2018-11-09 12:12 | CM.DPC ---
Addendum entered by Twyla Mcclain R.N. 11/09/18 15:21: Idalia at [facility] called after picking up patient. She stated that she was concerned about patient being on droplet precautions, because she has a room mate. Attempted to reach Dr. Ramos, for she stated that they may need to bring patient back. Spoke to patient's nurse, Savana, who stated that she would call [facility] back. Original Note: Addendum entered by Twyla Mcclain R.N. 11/09/18 13:54: Idalia from [facility] came over to assess patient. After talking to Dr. Ramos, hospitalist, stated that they can take patient. Will be picked up with oxygen at approximately 1430, confirmed with Idalia. Faxed her DC summary and instructions, med list, not yet signed, but will be in packet. Updated white board at main nurse's station. Original Note: DCP Cont: Had called early this morning, approximately 8:45am to talk to Idalia. Asked her to come and assess patient for possible discharge. Dr. Ramos, hospitalist, is feeling that patient could be ready for discharge today, although they are treating her thrush. Had not heard from [facility] yet, so this catalytic case operator called her back. She stated that they did not know if they could pick her up, since they already have 2 admissions. She stated that she did not know that patient would be discharged today. Let her know, that when this catalytic case operator called her early this morning, it was to alert her that she could be discharged, and wanted her to be assessed. Called Harmony at [facility]. She stated that they could take patient today if [facility] unable to. Let her know that this catalytic case operator would wait for [facility] to call back with status. This would also depend upon if [facility] can accept today. Let hospitalist know that she would be updated. P: DCP to continue to follow. [facility] versus [facility]. Twyla Mcclain RN/Float Operator
--- NOTE | 2018-11-09 13:42 | P.DS_ITS ---
History of Present Illness Date Patient Seen: 11/05/18 Chief complaint: Wheezing, Hx COPD Narrative: Written by Graciela Mark: The patient is a 73-year-old female who presented to the ED on 2018 at approximately 0100 with shortness of breath. Patient's PMH is significant for COPD, nocturnal O2 dependence, PRIOR history of tobacco dependence, and anxiety / depression. Initial symptom noted to be cough, chest congestion, and inability to bring up phlegm. She was instructed to increase fluid intake by provider at [facility] where she resides. No other interventions noted. Patient continues to have a cough, now w / increased frequency and difficulty expectorating phlegm. Associated symptoms include exertional dyspnea, increase use of O2 (now during the day and night), chest discomfort with cough only, dizziness / lightheadedness, cramping of lower extremities, and increase in fatigue. Denies fever, chills, chest pressure / tightness, hemoptysis, palpitations, unilateral leg edema, syncopal events, dyspepsia, nausea, or vomiting. Denies symptoms of cystitis and symptoms of blood loss per rectum. Reports diminished appetite and fluid intake. COPD is well controlled by reports, typically has 0-1 exacerbations per year. This is her first exacerbation this year. Reports up-to-date status on PNA and influeza vaccination. No prior h/o PE or DVT, cardiac problems, or cerebrovascular disease. Known to have baseline expressive aphasia (reason is not clear). Has not experienced focal deficits or unilateral weakness. Presented to the ED with tachycardia, tachypnea, labored respiratory effort / accessory muscle use, wheezing and hypoxia (SpO2 85% on RA). Cognition intact w / confusion or lethargy. Patient is known to have expressive aphagia. VS on presentation? T 98.7 BP 140/59 HR 117-121 RR 40 SpO2 92% on 2L O2. In ED received Solumedrol 125 mg IV, nebulized albuterol and a Duo-Neb treatment in ED , w/ partial improvement. Discharge Providers Date of admission: 11/05/18 04:56 Primary care physician: Luanne Loving MD Consults: 11/05/18 01:04 Consult to Respiratory Therapy Evaluate & Treat Comment: Physician Instructions: Evaluate and treat 11/05/18 05:27 Consult to Discharge Planning Routine Comment: Discharge provider: Yasmin Ramos DO Discharge Date: 11/09/18 Summary Discharge Diagnosis: 1. Acute on chronic COPD exacerbation, present on admission. Resolving. 2. Acute hypoxemic respiratory failure, present on admission. Resolving. 3. Acute RSV bronchitis, present on admission. Resolving. 4. Oral candidiasis, possibly present on admission. Active. 5. Acute leg cramps, not present on admission. Resolved. 6. Acute aphasia, present on admission. Improving. 7. Asthma, chronic, present on admission. Stable. 8. Anxiety and depression, chronic, present on admission. Stable. Hospital Course: Giovana Simeon is a 73-year-old female with a past medical history significant for COPD with nocturnal oxygen dependence and anxiety and depression who presented for acute shortness of breath admitted for RSV bronchitis and COPD exacerbation. 1. Acute on chronic COPD exacerbation, present on admission. Resolving. -CXR on admission: Advanced COPD with hyperinflation and flattening of the diaphragms. No infiltrate seen. Repeat chest x-ray continues to be clear. -Continued respiratory therapy evaluation and treatment throughout hospitalization. -Continued supplemental oxygen as needed to maintain oxygen saturations 88% or greater. -DuoNeb Q4H as needed. -Continued solumedrol 60 mg IV Q12H and discharge with slow 10 day prednisone taper. -Continued on Mucinex and PEP/flutter valve therapy; Discontinued Singulair while on steroids and during treatment for thrush. -Respiratory viral panel was only positive for RSV. No antibiotics needed. -CBC, BMP, Trop, and BNP WNL when checked on admission 11/05 -Supportive care. No NSAIDs. -Avoided opiates/benzodiazepines/other [employer] depressing medications, if possible, for risk of respiratory depression 2. Acute hypoxemic respiratory failure, present on admission. Resolving. -See treatment course as above under COPD exacerbation. 3. Acute RSV bronchitis, present on admission. Resolving. -See treatment course as above under COPD exacerbation. -No s/s of bacterial infection. 4. Oral candidiasis, possibly present on admission. Active. -Sputum culture grew budding yeast. -Started oral nystatin swish and swallow today. Discharge patient with clotrimazole krystian 5 times a day for 10 days. 5. Acute leg cramps, not present on admission. Resolved. -Continued Mg as quinine is not available on formulary. 6. Acute aphasia, present on admission. Improving. -Possibly secondary to oral candidiasis. See treatment plan as above. -Patient expresses her thoughts with a whiteboard and will voice some words verbally though is uncomfortable speaking. Her speech difficulty sounds like a vocal cord dysfunction and may consider speech therapy outpatient if aphasia does not resolve with treatment of oral candidiasis. 7. Asthma, chronic, present on admission. Stable. -Potentially exacerbated in the setting of underlying COPD -See treatment course as above under COPD exacerbation 8. Anxiety and depression, chronic, present on admission. Stable. -Continued Paxil 20 mg daily. Status at Discharge Functional status at discharge: uses cane/walker Overall status at discharge: patient is progressing back to baseline Exam Vital Signs (past 8 hours): - 11/09/18 08:00 11/09/18 08:43 11/09/18 09:15 Temperature 97.4 F L Pulse Rate 67 Respiratory Rate 16 Blood Pressure 133/76 Pulse Oximetry 93 97 96 11/09/18 11:41 11/09/18 12:00 Temperature 98.1 F Pulse Rate 89 Respiratory Rate 22 18 Blood Pressure 152/94 H Pulse Oximetry 92 96 Fraction of Inspired Oxygen 28 Oxygen Delivery Method Nasal Cannula Oxygen Flow Rate 3 Narrative Exam Narrative: General: Elderly female sitting in bed in no acute distress, quiet voice and intermittently aphasic, well-developed, well-nourished, appropriately interactive. HEENT: Normocephalic, atraumatic. External ears without defect. Pupils equal, round, and reactive to light. Anicteric sclerae, moist conjunctivae, and no lid lag. Oropharynx erythematous with scattered white exudate/plaque. Neck: Supple with full range of motion. No lymphadenopathy or thyromegaly. Cardiovascular: Regular rate and rhythm without murmurs, rubs, or gallops appreciated Pulmonary: Clear to auscultation bilaterally with scattered rhonchi and occasional wheeze. No crackles. Normal respiratory effort with no use of accessory muscles. Abdomen: Soft, bowel sounds present, nontender, nondistended. No hepatosplenomegaly or masses appreciated. Extremities: No clubbing, cyanosis, or edema. Skin: Normal temperature, turgor, and texture; no rash, ulcers, or subcutaneous nodules appreciated. Neurological: Cranial nerves grossly intact. Psychiatric: Normal mood and affect. Alert and oriented to person, place, and time. Objective Labs Result Diagrams: 11/05/18 00:48 11/05/18 00:48 Discharge Plan Discharge Plan Patient Disposition: Assisted Living Transfer to: [facility] Under care of provider: Dr. Loving Transportation: Facility vehicle Discharge comment: Please do not take or use fluticasone while finishing prednisone course. The receiving facility has agreed to accept transfer and provide medical treatment.: Yes Discharge Med Rec/Prescriptions Prescriptions: New prednisone 10 mg tablet See Label Instructions .ROUTE .COMPLEX Qty: 30 RF: 0 clotrimazole 10 mg krystian 10 mg MM 5XD Qty: 50 RF: 0 Continue paroxetine HCl [Paxil] 10 MG tablet 5 mg Q DAY Qty: 0 RF: 0 albuterol sulfate [Ventolin HFA] 90 MCG/PUFF HFA aerosol inhaler 2 inh IH BIDP PRN (Reason: Shortness Of Breath) Qty: 0 RF: 0 acetaminophen 325 mg Tablet 325 mg PO Q4H PRN (Reason: Pain (Scale Score 1-3)) RF: 0 albuterol sulfate 2.5 mg /3 mL (0.083 %) Solution For Nebulization 2.5 mg INHALATION DAILY RF: 0 aspirin 81 mg Tablet,Delayed Release (Dr/Ec) 81 mg PO DAILY RF: 0 lorazepam 0.5 mg Tablet 0.5 mg PO DAILY RF: 0 pyridoxine (vitamin B6) [Vitamin B-6] 50 mg Tablet 50 mg PO DAILY RF: 0 fluticasone [Flovent HFA] 220 mcg/actuation Hfa Aerosol Inhaler 1 puff INHALATION BID RF: 0 ibuprofen 600 mg Tablet 600 mg PO QID PRN (Reason: Pain (Scale Score 1-3)) RF: 0 guaifenesin 600 mg Tablet Extended Release 12hr 1,200 mg PO BID RF: 0 oxycodone-acetaminophen [Percocet] 5 MG/325 MG tablet 1 tab PO Q4HP PRN (Reason: Pain (Scale Score 1-3)) Qty: 20 RF: 0 Discontinued guaifenesin [Mucinex] 600 mg Tablet Extended Release 12hr 600 mg PO Q12H RF: 0 Follow up/Referrals: Luanne Loving MD [Primary Care Provider] - Discharge Orders: Discharge (Order); Ordered 11/09/18 Ordered By: Yasmin Patricia Pembina Discharge Health Status Brief summary of current health status: The patient is slowly progressing back to baseline in regards to upper respiratory tract infection. She is no longer contagious but universal and droplet precaution are recommended for the next several days while she continues to have a cough. She is being treated for oral candidiasis in which her dysphagia and aphasia will likely be drastically improved in the next several days. She may have oral suctioning to 3 times a day as needed for significant secretions. Multidrug resistant organism: No MDRO Precautions: [place] and Droplet Provider Discharge Instructions Diet: Diet as Tolerated, Low-fat, Low-sodium and Low-cholesterol Activity: Activity as tolerated with FWW Discharge Data Primary Care Provider: Luanne Loving Attending Provider: Graciela Mark Admit Date/Time: 11/05/18 04:56 Quality VTE Deep Vein Thrombosis/Pulmonary Embolism Present on Admission: No
== END 2018-11-09 15:46 | DRG 190 ==
LOC: ED 04:45 → AC 04:57
PROVIDERS: Admitting Provider Nurse Practitioner Gerontology; Emergency Provider Emergency Medicine; Family Provider Physician Assistant; PCP Internal Medicine; Visit Provider Nurse Practitioner Gerontology
DX: J44.1 Chronic obstructive pulmonary disease with (acute) exacerbation (principal); J96.01 Acute respiratory failure with hypoxia; J45.901 Unspecified asthma with (acute) exacerbation; B37.0 Candidal stomatitis; J20.5 Acute bronchitis due to respiratory syncytial virus; R25.2 Cramp and spasm; F32.9 Major depressive disorder, single episode, unspecified; F41.9 Anxiety disorder, unspecified
CPT/HCPCS: 36415; 36591; 36600; 71045; 71046; 80048; 82550; 82553; 82805; 83605; 83735; 83880; 84484; 85025; 87040; 87205; 87400; 87633; 93005; 93010; 94640; 94667; 94760; 94762; 96374; 99283; 99284; 99285; J1650; J2930; J7613

== ENCOUNTER 2018-11-11 16:57 | Observation (INO) | payer MEDICARE, MEDICAID, OTHER, SELFPAY ==
[2018-11-05 05:22] VITALS: BMI 17.4
[2018-11-11] VITALS (10 sets, daily range): BP systolic 122–183; BP diastolic 64–86; PULSE 97–131; RESP 20–40; TEMP 37.1–37.4; O2SAT 89–98; BMI 17.4; BMI 16.7
--- NOTE | 2018-11-11 17:03 | DI.RAD.S_ITS ---
PROCEDURE: XR CHEST 1V INDICATIONS: short of breath TECHNIQUE: One view of the chest was acquired. COMPARISON: [facility], CR, XR CHEST 2V, 11/08/2018, 10:28. [facility], CR, XR CHEST 1V, 11/05/2018, 1:10. [facility], CR, CHEST 1 VIEW, 03/31/2017, 5:46. [facility], CR, CHEST 1 VIEW, 03/28/2017, 11:49. FINDINGS: Surgical changes and devices: None. Lungs and pleura: Diffuse bilateral reticular pulmonary opacities are stable to prior comparison exams. There is redemonstrated pulmonary hyperinflation. No pleural effusions or pneumothorax. New 1.0 cm rounded opacities projecting over the bilateral lung bases are new from prior exam of 11/08/18 and likely represent nipple shadows rather than airspace disease. Mediastinum: There is calcified plaque of the aorta. Mediastinal contours appear otherwise normal. Heart size is normal. Bones and chest wall: No acute osseous abnormalities. IMPRESSION: 1. New 1.0 cm rounded opacities projecting over the bilateral lung bases are new from prior exam of 11/08/18 and likely represent nipple shadows rather than new airspace disease; consider repeat chest radiograph with nipple markers if there is continued clinical concern. 2. Stable chronic bilateral reticular pulmonary opacities, likely reflective of chronic lung disease. Dictated by: Chris Morfin M.D. on 11/11/2018 at 17:49 Approved by: Chris Morfin M.D. on 11/11/2018 at 17:54
[2018-11-11 17:11] LABS: Add Manual Diff / Slide Review NO; Basophils Absolute Auto 0 /uL (0-100); Basophils Percent Auto 0.2 % (0-2); Eosinophils Absolute Auto 0 /uL (0-450); Eosinophils Percent Auto 0.1 % (2-4); Hematocrit 45.5 % (36-46); Hemoglobin 15.1 g/dL (12.0-16.0); Lymphocytes Absolute Auto 1300 /uL (1100-4500); Lymphocytes Percent Auto 8.6 % (25-40); Mean Corpuscular HGB Conc 33.1 % (30-36); Mean Corpuscular Hemoglobin 30.5 PG (26-34); Mean Corpuscular Volume 92.3 fL (80-100); Monocytes Absolute Auto 1300 /uL (0-900); Monocytes Percent Auto 8.8 % (3-14); Neutrophils Absolute Auto 12500 /uL (1500-7000); Neutrophils Percent Auto 82.3 % (50-75); Platelet Count 327 X10^3/uL (150-400); Red Blood Cell Count 4.93 X10^6/uL (4.0-5.2); Red Cell Distribution Width 14.7 % (11.6-14.8); White Blood Cell Count 15.1 X10^3/uL (4.5-11.0)
--- NOTE | 2018-11-11 17:14 | ED_ITS ---
HPI - SOB/Dyspnea General Chief Complaint: Shortness of Breath/Dyspnea Stated Complaint: SOB Time Seen by Provider: 11/11/18 17:01 Source: patient, EMS and old records reviewed Limitations: language barrier (Deliberate a facial, writes on a white board for communication) History of Present Illness Patient is a 73-year-old, presenting with increasing shortness of breath. She has a history of COPD she was actually discharged from the facility is on 2018 is for COPD in RSV bronchitis. She is chronically on oxygen. She arrives from [facility] were today they noticed difficulty breathing she has not had fever. She is not need an increase in oxygen. She has had DuoNeb treatments throughout the day without much relief. MD Complaint: shortness of breath and cough Related Data Home Medications Medication Instructions Recorded Confirmed albuterol sulfate [Ventolin HFA] 2 inh IH BIDP PRN #0 01/21/12 11/11/18 paroxetine HCl [Paxil] 20 mg QNOON #0 01/21/12 11/11/18 acetaminophen 650 mg PO Q4H PRN 11/05/18 11/11/18 albuterol sulfate 2.5 mg INHALATION DAILY 11/05/18 11/11/18 aspirin 81 mg PO QNOON 11/05/18 11/11/18 fluticasone [Flovent HFA] 1 puff INHALATION BID 11/05/18 11/11/18 guaifenesin 1,200 mg PO BID 11/05/18 11/11/18 ibuprofen 600 mg PO Q6H PRN 11/05/18 11/11/18 lorazepam 0.5 mg PO Q6H PRN 11/05/18 11/11/18 pyridoxine (vitamin B6) [Vitamin 50 mg PO QNOON 11/05/18 11/11/18 B-6] albuterol sulfate 3 ml INHALATION Q8H PRN 11/11/18 11/11/18 bisacodyl 5 mg PO PRN PRN 11/11/18 11/11/18 bisacodyl 10 mg PO PRN PRN 11/11/18 11/11/18 bisacodyl 10 mg AL DAILY PRN 11/11/18 11/11/18 dextran 70-hypromellose 1 drp OPHTHALMIC (EYE) PRN PRN 11/11/18 11/11/18 [Artificial Tears (PF)] guaifenesin 600 mg PO Q12H PRN 11/11/18 11/11/18 oxycodone-acetaminophen [Percocet] 1 tab PO Q4HP PRN 11/11/18 11/11/18 prednisone 40 mg PO DAILYX3 11/11/18 11/11/18 Previous Rx's Medication Instructions Recorded clotrimazole 10 mg MM 5XD #50 tab 11/09/18 Allergies Allergy/AdvReac Type Severity Reaction Status Date / Time naproxen Allergy Intermediate WEAKNESS Verified 11/11/18 16:59 AND SEVERE ITCHING penicillin G Allergy Intermediate SKIN Verified 11/11/18 16:59 REACTION, BURNING PEELING SKIN codeine AdvReac Mild STOMACH Verified 11/11/18 16:59 milk AdvReac Unknown LACTOSE Verified 11/11/18 16:59 INTOLERANCE Review of Systems Review of Systems ROS Unobtainable: All systems reviewed & are unremarkable except as noted in HPI and below Constitutional Denies chills, Denies fever(s), Denies lethargy and Denies weakness Cardiovascular Denies chest pain, Denies irregular heart rhythm, Denies lightheadedness, Denies palpitations and Denies orthopnea Respiratory Reports as per HPI Gastrointestinal Gastrointestinal: Denies abdominal pain, Denies change in bowel habits, Denies diarrhea, Denies nausea and Denies vomiting Genitourinary Denies hematuria, Denies flank pain, Denies urinary incontinence and Denies urinary urgency Musculoskeletal Denies back pain, Denies muscle weakness, Denies numbness and Denies tingling Integumentary/Breasts Denies pruritus, Denies erythema, Denies rash and Denies wounds Neurologic Denies numbness, Denies tingling and Denies weakness Endocrine Denies palpitations PFSH Medical History Anxiety and depression (Chronic) Expressive aphasia (Chronic) H/O: hysterectomy (Acute) Oral candidiasis (Acute) COPD (chronic obstructive pulmonary disease) (Acute) Asthma (Chronic) Dependence on nocturnal oxygen therapy (Chronic) Social History Smoking Status: Former smoker alcohol intake: current Social History household members: other Smoking Status: Former smoker alcohol intake: current Exam Initial Vital Signs Initial Vital Signs: Vital Signs Temperature 99.4 F 11/11/18 17:00 Pulse Rate 126 H 11/11/18 17:00 Respiratory Rate 39 H 11/11/18 17:00 Blood Pressure 183/86 H 11/11/18 17:00 Pulse Oximetry 95 11/11/18 17:00 GENERAL: Acutely dyspneic receiving DuoNeb treatment now HEENT: Head atraumatic,EOMI, pupils reactive CARDIOVASCULAR: Regular rate and rhythm without murmurs, rubs or gallops. RESPIRATORY: Decreased air movement bilaterally she does have nonproductive wet sounding cough but no rales or rhonchi in mom ABDOMEN: Soft, nontender. Normoactive bowel sounds all 4 quadrants. No guarding or rebound. EXTREMITIES: Normal range of motion, no clubbing or edema. Neurovascularly intact NEUROLOGICAL: Moving all extremities follows commands communicating on her board SKIN: Warm, dry, no laceration, no petechiae, no rashes or lesions. Course Orders Ordered: ED Orders 11/12/18 05:43 Basic Metabolic Panel DAILY Complete Blood Count AUTO DIFF DAILY 11/12/18 05:44 Chest physiotherapy RT PROTOCOL 11/13/18 05:00 Basic Metabolic Panel DAILY Complete Blood Count AUTO DIFF DAILY 11/14/18 05:00 Basic Metabolic Panel DAILY Complete Blood Count AUTO DIFF DAILY Acetaminophen (Tylenol) 650 mg PO Q4H PRN PRN Reason: Fever Or Pain Al Hydrox/Mg Hydrox/Simethicone (Maalox Plus) 30 ml PO Q6HR PRN PRN Reason: Dyspepsia Albuterol (Ventolin) 2.5 mg INH [id number] PRN PRN Reason: Shortness Of Breath Albuterol/Ipratropium (Duoneb) 3 ml INH [id number] [facility] Last Admin: 11/12/18 05:21 Dose: 3 ml Admin: 11/11/18 21:50 Dose: 3 ml Artificial Tears (Artificial Tears) 1 drops EYE-BOTH PRN PRN PRN Reason: EYE IRRITATION Aspirin (Aspirin Ec) 81 mg PO QNOON [facility] Bisacodyl (Dulcolax) 5 mg PO PRN PRN PRN Reason: IF NO DM IN 3 DAYS Enoxaparin Sodium (Lovenox) 40 mg SUBCUT DAILY [facility] Fluticasone Propionate (Flovent Hfa) 1 puff INH BID [facility] Last Admin: 11/11/18 21:27 Dose: Guaifenesin (Mucinex) 600 mg PO Q12H PRN PRN Reason: Congestion Sodium Chloride (Normal Saline 0.9%) 1,000 mls @ 75 mls/hr IV CONT KATHE Stop: 11/12/18 20:04 Magnesium Oxide (Mag Ox) 400 mg PO DAILY [facility] Nystatin (Mycostatin Susp) 500,000 unit PO TID [facility] Last Admin: 11/11/18 22:16 Dose: 500,000 unit Ondansetron HCl (Zofran Odt) 4 mg PO Q8HR PRN PRN Reason: Nausea And Vomiting Pantoprazole Sodium (Protonix) 20 mg PO 0600 KATHE Last Admin: 11/12/18 05:22 Dose: 20 mg Paroxetine HCl (Paxil) 20 mg PO 1200 [facility] Prednisone (Deltasone) 40 mg PO DAILY [facility] Stop: 11/14/18 09:01 Pyridoxine HCl (Vitamin B6) 50 mg PO QNOON [facility] Discontinued Medications Albuterol (Ventolin) 2.5 mg INH NOW ONE Stop: 11/11/18 17:03 Last Admin: 11/11/18 18:32 Dose: 2.5 mg Albuterol/Ipratropium (Duoneb) 3 ml INH RTQ4HR PRN PRN Reason: Shortness Of Breath Methylprednisolone (Solu-Medrol 125 Mg Vial) 125 mg IV NOW ONE Stop: 11/11/18 18:39 Last Admin: 11/11/18 18:49 Dose: 125 mg Vital Signs - 8 hr 11/12/18 00:21 11/12/18 00:45 11/12/18 05:00 Temperature 97.3 F L 97.3 F L Pulse Rate 87 94 H Respiratory Rate 20 20 Blood Pressure 130/68 113/48 L Pulse Oximetry 95 95 95 MDM - SOB/Dyspnea Lab Data Attestation: I reviewed the patient's lab results. Result diagrams: 11/12/18 05:43 11/12/18 05:43 Lab Results 11/11/18 11/11/18 11/11/18 Range/Units 16:50 16:50 16:50 WBC 15.1 H (4.5-11.0) X10^3/uL RBC 4.93 (4.0-5.2) X10^6/uL Hgb 15.1 (12.0-16.0) g/dL Hct 45.5 (36-46) % MCV 92.3 (80-100) fL MCH 30.5 (26-34) PG MCHC 33.1 (30-36) % RDW 14.7 (11.6-14.8) % Plt Count 327 (150-400) X10^3/uL Neut % (Auto) 82.3 H (50-75) % Lymph % (Auto) 8.6 L (25-40) % [place] % (Auto) 8.8 (3-14) % Eos % (Auto) 0.1 L (2-4) % Baso % (Auto) 0.2 (0-2) % Neut # (Auto) 75031 H (3734-6099) /uL Lymph # (Auto) 1300 (1307-0624) /uL [place] # (Auto) 1300 H (0-900) /uL Eos # (Auto) 0 (0-450) /uL Baso # (Auto) 0 (0-100) /uL PT 11.2 (10.1-12.7) SECONDS INR 1.0 (0.9-1.3) APTT 28 (26.4-36.2) SECONDS ABG pH (7.35-7.45) ABG pCO2 (35-45) mmHg ABG pO2 (80-100) mmHg ABG HCO3 (22-26) mmol/L ABG Total CO2 (21-31) mmol/L ABG O2 Saturation (95-100) % ABG Base Excess (-2-2) mmol/L FiO2 Sodium 138 (137-145) mmol/L Potassium 4.2 (3.4-5.1) mmol/L Chloride 95 L (98-107) mmol/L Carbon Dioxide 36 H (22-32) mmol/L BUN 15 (7-17) mg/dL Creatinine 0.60 (0.52-1.04) mg/dL Estimated GFR > 60.0 (>60) mL/min BUN/Creatinine Ratio 25.0 H (6-22) Glucose 140 H (80-110) mg/dL Lactate (0.7-2.1) mmol/L Calcium 9.3 (8.4-10.2) mg/dL Phosphorus (2.8-4.1) mg/dL Magnesium 1.9 (1.6-2.3) mg/dL Total Bilirubin 0.5 (0.2-1.3) mg/dL AST 43 H (14-36) IU/L ALT 55 H (9-52) IU/L Alkaline Phosphatase 83 (38-126) U/L Total Creatine Kinase 91 (30-135) U/L CK-MB (CK-2) TNP CK-MB (CK-2) Rel Index TNP Troponin I 0.015 (0.01-0.034) ng/mL B-Natriuretic Peptide < 100 (<100) Total Protein 7.3 (6.3-8.2) g/dL Albumin 4.1 (3.5-5.0) g/dL Globulin 3.2 (1.7-4.1) g/dL Albumin/Globulin Ratio 1.3 (1.0-2.8) Procalcitonin (<0.5) ng/mL 11/11/18 11/11/18 11/11/18 Range/Units 16:50 16:50 17:19 WBC (4.5-11.0) X10^3/uL RBC (4.0-5.2) X10^6/uL Hgb (12.0-16.0) g/dL Hct (36-46) % MCV (80-100) fL MCH (26-34) PG MCHC (30-36) % RDW (11.6-14.8) % Plt Count (150-400) X10^3/uL Neut % (Auto) (50-75) % Lymph % (Auto) (25-40) % [place] % (Auto) (3-14) % Eos % (Auto) (2-4) % Baso % (Auto) (0-2) % Neut # (Auto) (9293-7080) /uL Lymph # (Auto) (3284-4070) /uL [place] # (Auto) (0-900) /uL Eos # (Auto) (0-450) /uL Baso # (Auto) (0-100) /uL PT (10.1-12.7) SECONDS INR (0.9-1.3) APTT (26.4-36.2) SECONDS ABG pH 7.39 (7.35-7.45) ABG pCO2 52.5 H (35-45) mmHg ABG pO2 60 L (80-100) mmHg ABG HCO3 32 H (22-26) mmol/L ABG Total CO2 33 H (21-31) mmol/L ABG O2 Saturation 90 L (95-100) % ABG Base Excess 7.0 H (-2-2) mmol/L FiO2 28 Sodium (137-145) mmol/L Potassium (3.4-5.1) mmol/L Chloride (98-107) mmol/L Carbon Dioxide (22-32) mmol/L BUN (7-17) mg/dL Creatinine (0.52-1.04) mg/dL Estimated GFR (>60) mL/min BUN/Creatinine Ratio (6-22) Glucose (80-110) mg/dL Lactate (0.7-2.1) mmol/L Calcium (8.4-10.2) mg/dL Phosphorus 4.3 H (2.8-4.1) mg/dL Magnesium 2.0 (1.6-2.3) mg/dL Total Bilirubin (0.2-1.3) mg/dL AST (14-36) IU/L ALT (9-52) IU/L Alkaline Phosphatase (38-126) U/L Total Creatine Kinase (30-135) U/L CK-MB (CK-2) CK-MB (CK-2) Rel Index Troponin I (0.01-0.034) ng/mL B-Natriuretic Peptide (<100) Total Protein (6.3-8.2) g/dL Albumin (3.5-5.0) g/dL Globulin (1.7-4.1) g/dL Albumin/Globulin Ratio (1.0-2.8) Procalcitonin 0.13 (<0.5) ng/mL 11/11/18 11/12/18 11/12/18 Range/Units 17:20 05:43 05:43 WBC 9.8 (4.5-11.0) X10^3/uL RBC 4.67 (4.0-5.2) X10^6/uL Hgb 14.3 (12.0-16.0) g/dL Hct 43.1 (36-46) % MCV 92.2 (80-100) fL MCH 30.7 (26-34) PG MCHC 33.3 (30-36) % RDW 14.7 (11.6-14.8) % Plt Count 275 (150-400) X10^3/uL Neut % (Auto) 92.8 H (50-75) % Lymph % (Auto) 5.0 L (25-40) % [place] % (Auto) 2.0 L (3-14) % Eos % (Auto) 0.0 L (2-4) % Baso % (Auto) 0.2 (0-2) % Neut # (Auto) 9100 H (2300-5326) /uL Lymph # (Auto) 500 L (3055-4329) /uL [place] # (Auto) 200 (0-900) /uL Eos # (Auto) 0 (0-450) /uL Baso # (Auto) 0 (0-100) /uL PT (10.1-12.7) SECONDS INR (0.9-1.3) APTT (26.4-36.2) SECONDS ABG pH (7.35-7.45) ABG pCO2 (35-45) mmHg ABG pO2 (80-100) mmHg ABG HCO3 (22-26) mmol/L ABG Total CO2 (21-31) mmol/L ABG O2 Saturation (95-100) % ABG Base Excess (-2-2) mmol/L FiO2 Sodium 140 (137-145) mmol/L Potassium 4.1 (3.4-5.1) mmol/L Chloride 98 (98-107) mmol/L Carbon Dioxide 33 H (22-32) mmol/L BUN 18 H (7-17) mg/dL Creatinine 0.50 L (0.52-1.04) mg/dL Estimated GFR > 60.0 (>60) mL/min BUN/Creatinine Ratio 36.0 H (6-22) Glucose 167 H (80-110) mg/dL Lactate 0.9 (0.7-2.1) mmol/L Calcium 9.1 (8.4-10.2) mg/dL Phosphorus (2.8-4.1) mg/dL Magnesium (1.6-2.3) mg/dL Total Bilirubin (0.2-1.3) mg/dL AST (14-36) IU/L ALT (9-52) IU/L Alkaline Phosphatase (38-126) U/L Total Creatine Kinase (30-135) U/L CK-MB (CK-2) CK-MB (CK-2) Rel Index Troponin I (0.01-0.034) ng/mL B-Natriuretic Peptide (<100) Total Protein (6.3-8.2) g/dL Albumin (3.5-5.0) g/dL Globulin (1.7-4.1) g/dL Albumin/Globulin Ratio (1.0-2.8) Procalcitonin (<0.5) ng/mL ABG Data Attestation: I personally reviewed and interpreted this ABG as follows: Interpretation: Patient is slightly more hypercapnic and hypoxic PaO2 of 60 on oxygen with a CO2 of 52 point also more than previously Imaging Data Chest x-ray: Radiologist's impression: PROCEDURE: XR CHEST 1V INDICATIONS: short of breath TECHNIQUE: One view of the chest was acquired. COMPARISON: [facility], CR, XR CHEST 2V, 11/08/2018, 10:28. [facility], CR, XR CHEST 1V, 11/05/2018, 1:10. [facility], CR, CHEST 1 VIEW, 03/31/2017, 5:46. [facility], CR, CHEST 1 VIEW, 03/28/2017, 11:49. FINDINGS: Surgical changes and devices: None. Lungs and pleura: Diffuse bilateral reticular pulmonary opacities are stable to prior comparison exams. There is redemonstrated pulmonary hyperinflation. No pleural effusions or pneumothorax. New 1.0 cm rounded opacities projecting over the bilateral lung bases are new from prior exam of 11/08/18 and likely represent nipple shadows rather than airspace disease. Mediastinum: There is calcified plaque of the aorta. Mediastinal contours appear otherwise normal. Heart size is normal. Bones and chest wall: No acute osseous abnormalities. IMPRESSION: 1. New 1.0 cm rounded opacities projecting over the bilateral lung bases are new from prior exam of 11/08/18 and likely represent nipple shadows rather than new airspace disease; consider repeat chest radiograph with nipple markers if there is continued clinical concern. 2. Stable chronic bilateral reticular pulmonary opacities, likely reflective of chronic lung disease. Dictated by: Chris Morfin M.D. on 11/11/2018 at 17:49 CT scan - chest: Radiologist's impression: PROCEDURE: CT ANGIO CHEST PE PROTOCOL INDICATIONS: sob, hospitalized copd TECHNIQUE: After the administration of intravenous contrast, 2 mm thick sections acquired from the pulmonary apices to the posterior costophrenic angles. 3-dimensional maximum intensity projection (MIP) coronal and sagittal reformats were then acquired through the thorax. For radiation dose reduction, the following was used: automated exposure control, adjustment of mA and/or kV according to patient size. COMPARISON: [facility], CT, THORAX WITHOUT CONTRAST, 10/22/2016, 11:31. [facility], CT, CHEST W/O CONTRAST, 10/19/2015, 13:26. [facility], CT, CHEST W/O CONTRAST, 12/28/2014, 12:48. [facility], CT, HEAD WITHOUT CONTRAST, 01/21/2012, 0:25. FINDINGS: Image quality: Excellent. Pulmonary arteries: Pulmonary arteries are normal in size, and demonstrate no intraluminal filling defects to suggest central pulmonary embolism. Lungs and pleura: 1.3 cm nodular scarring of the right lung apex is stable to comparison exam of 10/22/16. A 1.8 cm right upper lobe nodule versus nodular scarring is new from comparison exam of 10/22/16. There diffuse bilateral emphysematous changes. There are peripheral nodular consolidations of the left lower lobe that are new from comparison exam of 10/22/16. No pleural effusions or pneumothorax. Central and peripheral airways are patent. Mediastinum: Heart size is normal, without pericardial effusion. Mediastinal lymph nodes measure at the upper limits of normal in size, likely reactive. There is moderate calcified plaque of the aorta and branch vessels. Thoracic aorta is normal in caliber and enhancement. Bones and chest wall: Old healed fracture deformity of the posterior left 11th rib. Mild multilevel degenerative changes of the thoracic spine. Abdomen: There is focal fatty infiltration of the liver adjacent to falciform ligament. There is moderate calcified and noncalcified plaque of the abdominal aorta and branch vessels. IMPRESSION: 1. No segmental or larger pulmonary emboli. 2. Peripheral nodular consolidations in the left lower lobe concerning for pneumonia, new from comparison exam of 10/22/16. Recommend followup CT of the chest to ensure resolution and exclude underlying malignancy. 3. 1.8 cm right upper lobe nodule versus nodular scarring is new from comparison exam of 10/22/16. Recommend reevaluation of this finding on the followup CT recommended above, with possible PET/CT if this nodular finding persists to exclude underlying malignancy. Dictated by: Chris Morfin M.D. on 11/11/2018 at 20:19 Approved by: Chris Morfin M.D. on 11/11/2018 at 20:34 [facility] Narrative Medical decision making narrative: Patient is requiring high-flow nasal cannula. She has had some relief with bronchodilators although her lungs still sound tight. She is having secretions difficult for her to get up. She tolerating the high-flow nasal cannula well. Based on her shortness of breath and increased heart and recent hospitalization, will get CT to rule out PE. She is noted to have leukocytosis but is afebrile and is also on prednisone. It does not appear that she was given antibiotics during her previous admission due to of viral bronchitis. Procalcitonin is minimally elevated. I think she would benefit from antibiotics at this time Patient will need to be admitted due to increased need for oxygen. Yonas Ray hospitalist accepts patient. Discharge Plan Departure Patient Disposition: Admitted as Observation Clinical Impression: COPD exacerbation, Acute and chronic respiratory failure with hypoxia Discharge Date/Time: 11/11/18 21:40 Interventions: ED Discharge Assessment Last Done: 11/11/18 21:40 Admit Date/Time: 11/11/18 20:08 Admit Provider: David Ray
[2018-11-11 17:18] LABS: Prothrombin Time 11.2 SECONDS (10.1-12.7)
[2018-11-11 17:20] LABS: PTT Partial Thromboplastin Tim 28 SECONDS (26.4-36.2)
[2018-11-11 17:24] LABS: Alanine Aminotransferase 55 IU/L (9-52); Albumin 4.1 g/dL (3.5-5.0); Albumin Globulin Ratio 1.3 (1.0-2.8); Alkaline Phosphatase 83 U/L (38-126); Aspartate Aminotransferase 43 IU/L (14-36); Bilirubin Total 0.5 mg/dL (0.2-1.3); Blood Urea Nitrogen 15 mg/dL (7-17); Calcium 9.3 mg/dL (8.4-10.2); Carbon Dioxide 36 mmol/L (22-32); Chloride 95 mmol/L (98-107); Creatine Kinase 91 U/L (30-135); Estimated Glomerular Filt Rate > 60.0 mL/min (>60); Globulin 3.2 g/dL (1.7-4.1); Glucose 140 mg/dL (80-110); HEMOLYSIS < 15 (0-50); Magnesium 1.9 mg/dL (1.6-2.3); Potassium 4.2 mmol/L (3.4-5.1); Sodium 138 mmol/L (137-145); Total Protein 7.3 g/dL (6.3-8.2)
[2018-11-11 17:35] LABS: Troponin I 0.015 ng/mL (0.01-0.034)
[2018-11-11 17:39] LABS: B Type Natriuretic Peptide < 100 (<100)
[2018-11-11 17:41] LABS: HCO3 ABG 32 mmol/L (22-26); PCO2 ABG 52.5 mmHg (35-45); PO2 ABG 60 mmHg (80-100); TCO2 ABG 33 mmol/L (21-31); pH ABG 7.39 (7.35-7.45)
[2018-11-11 17:42] LABS: Lactate (Lactic Acid) 0.9 mmol/L (0.7-2.1)
[2018-11-11 17:42] LABS: Fractionated Inspired Oxygen 28; Oxygen Saturation ABG 90 % (95-100)
[2018-11-11 17:44] LABS: Procalcitonin 0.13 ng/mL (<0.5)
--- NOTE | 2018-11-11 18:22 | DI.CT.S_ITS ---
PROCEDURE: CT ANGIO CHEST PE PROTOCOL INDICATIONS: sob, hospitalized copd TECHNIQUE: After the administration of intravenous contrast, 2 mm thick sections acquired from the pulmonary apices to the posterior costophrenic angles. 3-dimensional maximum intensity projection (MIP) coronal and sagittal reformats were then acquired through the thorax. For radiation dose reduction, the following was used: automated exposure control, adjustment of mA and/or kV according to patient size. COMPARISON: [facility], CT, THORAX WITHOUT CONTRAST, 10/22/2016, 11:31. [facility], CT, CHEST W/O CONTRAST, 10/19/2015, 13:26. [facility], CT, CHEST W/O CONTRAST, 12/28/2014, 12:48. [facility], CT, HEAD WITHOUT CONTRAST, 01/21/2012, 0:25. FINDINGS: Image quality: Excellent. Pulmonary arteries: Pulmonary arteries are normal in size, and demonstrate no intraluminal filling defects to suggest central pulmonary embolism. Lungs and pleura: 1.3 cm nodular scarring of the right lung apex is stable to comparison exam of 10/22/16. A 1.8 cm right upper lobe nodule versus nodular scarring is new from comparison exam of 10/22/16. There diffuse bilateral emphysematous changes. There are peripheral nodular consolidations of the left lower lobe that are new from comparison exam of 10/22/16. No pleural effusions or pneumothorax. Central and peripheral airways are patent. Mediastinum: Heart size is normal, without pericardial effusion. Mediastinal lymph nodes measure at the upper limits of normal in size, likely reactive. There is moderate calcified plaque of the aorta and branch vessels. Thoracic aorta is normal in caliber and enhancement. Bones and chest wall: Old healed fracture deformity of the posterior left 11th rib. Mild multilevel degenerative changes of the thoracic spine. Abdomen: There is focal fatty infiltration of the liver adjacent to falciform ligament. There is moderate calcified and noncalcified plaque of the abdominal aorta and branch vessels. IMPRESSION: 1. No segmental or larger pulmonary emboli. 2. Peripheral nodular consolidations in the left lower lobe concerning for pneumonia, new from comparison exam of 10/22/16. Recommend followup CT of the chest to ensure resolution and exclude underlying malignancy. 3. 1.8 cm right upper lobe nodule versus nodular scarring is new from comparison exam of 10/22/16. Recommend reevaluation of this finding on the followup CT recommended above, with possible PET/CT if this nodular finding persists to exclude underlying malignancy. Dictated by: Chris Morfin M.D. on 11/11/2018 at 20:19 Approved by: Chris Morfin M.D. on 11/11/2018 at 20:34
[2018-11-11] MEDS: ALBUTEROL 2.5 MG/3 ML NEB (ADULT) INH (18:32)
[2018-11-11] MEDS: methylPREDNISolone 125 MG/2 ML VIAL IV (18:49)
--- NOTE | 2018-11-11 20:25 | P.HP_ITS ---
History of Present Illness Date Patient Seen: 11/11/18 Time Patient Seen: 19:52 Chief complaint: SOB Narrative: This is a 73-year-old female with a prior history of COPD, RSV bronchitis, asthma, candidiasis, aphasia, depression that presents to the ER with increased shortness of breath. The patient was treated in the hospital and discharged on 11/09/2018 following treatment for RSV bronchitis. Patient was discharged to [facility] where she is on continuous O2 therapy. Staff noted increased difficulty breathing with worsening cough refractory to nebulizer treatments. The patient was brought to the ER for evaluation. In the ER per MD report the patient was found to be very tight not moving any air with an increased O2 requirement. The patient received 3 nebulizer treatments and Solu-Medrol in the ER. Patient also complained of chest pain with coughing for which a CTA was obtained of her reading is not available at the time of this writing. On gross review no significant abnormalities are identified. Chest x-ray finds stable COPD without infiltrates. An ABG was taken which shows a compensated respiratory acidosis with a pH is 7.39, pCO2 of 52.5 Marianne PO2 of 60. Her bicarb was 32 with a base excess is 7. The patient was placed on high-flow O2 with improvement in oxygen saturation. At time of encounter the patient is denying complaints of fever and is afebrile, complains of chest pain and headache with cough. The patient also reports continuous nausea which she indicates has been going on for ?some time?. She reports no bowel bladder complaints, joint or muscle pains, numbness or tingling. Patient History Medical History Anxiety and depression (Chronic) Expressive aphasia (Chronic) H/O: hysterectomy (Acute) Oral candidiasis (Acute) COPD (chronic obstructive pulmonary disease) (Acute) Asthma (Chronic) Dependence on nocturnal oxygen therapy (Chronic) Social History Smoking Status: Former smoker alcohol intake: current Comment: Family & Social History Safety & Behavioral: Feels Safe in Current Yes Environment Been Physically Hurt or No Threatened By a Person Tobacco & Substance use: Smoking Status Former smoker alcohol intake current alcohol intake frequency 0-2 drinks per day Comment: The patient currently resides at [facility]. Advanced directive: Patient wishes to be full code. No formal health directive , designates her daughter, Fay Whittaker, as a surrogate decision maker. Meds Home Medications Medication Instructions Recorded Confirmed Type albuterol sulfate [Ventolin HFA] 2 inh IH BIDP PRN #0 01/21/12 11/11/18 History paroxetine HCl [Paxil] 20 mg QNOON #0 01/21/12 11/11/18 History acetaminophen 650 mg PO Q4H PRN 11/05/18 11/11/18 History albuterol sulfate 2.5 mg INHALATION DAILY 11/05/18 11/11/18 History aspirin 81 mg PO QNOON 11/05/18 11/11/18 History fluticasone [Flovent HFA] 1 puff INHALATION BID 11/05/18 11/11/18 History guaifenesin 1,200 mg PO BID 11/05/18 11/11/18 History ibuprofen 600 mg PO Q6H PRN 11/05/18 11/11/18 History lorazepam 0.5 mg PO Q6H PRN 11/05/18 11/11/18 History pyridoxine (vitamin B6) [Vitamin 50 mg PO QNOON 11/05/18 11/11/18 History B-6] clotrimazole 10 mg MM 5XD #50 tab 11/09/18 11/11/18 Rx albuterol sulfate 3 ml INHALATION Q8H PRN 11/11/18 11/11/18 History bisacodyl 5 mg PO PRN PRN 11/11/18 11/11/18 History bisacodyl 10 mg PO PRN PRN 11/11/18 11/11/18 History bisacodyl 10 mg [place] DAILY PRN 11/11/18 11/11/18 History dextran 70-hypromellose 1 drp OPHTHALMIC (EYE) PRN PRN 11/11/18 11/11/18 History [Artificial Tears (PF)] guaifenesin 600 mg PO Q12H PRN 11/11/18 11/11/18 History oxycodone-acetaminophen [Percocet] 1 tab PO Q4HP PRN 11/11/18 11/11/18 History prednisone 40 mg PO DAILYX3 11/11/18 11/11/18 History Allergies Allergy/AdvReac Type Severity Reaction Status Date / Time naproxen Allergy Intermediate WEAKNESS Verified 11/11/18 16:59 AND SEVERE ITCHING penicillin G Allergy Intermediate SKIN Verified 11/11/18 16:59 REACTION, BURNING PEELING SKIN codeine AdvReac Mild STOMACH Verified 11/11/18 16:59 milk AdvReac Unknown LACTOSE Verified 11/11/18 16:59 INTOLERANCE Review of Systems Review of Systems Review of systems is limited due to patient dyspnea as well as difficulty communicating related to aphasia Constitutional: Positive for poor appetite, Denies fevers, chills, sweats, fatigue, stable weight Eyes: Denies visual changes, denies floaters, diplopia ENT: Positive for headache, mouth pain, dysphonia, Denies headaches, hearing changes, ear pain, no nasal congestion, rhinorrhea, no neck stiffness or pain Respiratory: Positive for shortness of breath at rest, but productive cough and wheezing Cardiovascular: Positive for chest pain with coughing Denies palpitations, orthostatic dizziness, syncope, edema Gastrointestinal: Positive for persistent nausea Denies abdominal pain, vomiting, no bloating, constipation or diarrhea, denies blood in stool. Genitourinary: denies urinary incontinence, no complains of frequency, burning or urgency, hematuria on voiding Musculoskeletal: Positive for history of muscle cramps denies falls, weakness, edema, myalgia or joint swelling. Integumentary: denies skin lesions, masses, rashes, hives, itching Neurological: Positive for fatigue drowsiness, aphasia related to dysphonia secondary to candidiasis, denies dizziness, confusion, numbness or tingling, seizures Psychiatric: Positive for history of anxiety and depression, denies disturbances in thought, attentions or mood, denies substance abuse Endocrine: denies goiter, lethargy, abnormal sweating, and heat/cold intolerance. Heme/lymph: Denies lymphadenopathy, abnormal bleeding or bruising Exam Vital Signs (past 8 hours): - 11/11/18 17:00 11/11/18 17:30 11/11/18 17:37 Temperature 99.4 F 98.8 F Pulse Rate 127 H 131 H Respiratory Rate 40 H 31 H Blood Pressure 183/86 H Blood Pressure [Right Arm] 183/86 H 125/77 Pulse Oximetry 93 92 11/11/18 18:12 11/11/18 18:37 11/11/18 19:38 Temperature Pulse Rate 123 H 115 H Respiratory Rate 26 H 23 Blood Pressure Blood Pressure [Right Arm] 127/64 134/79 Pulse Oximetry 92 93 Oxygen Delivery Method High Flow Nasal Cannula Oxygen Flow Rate 2 Narrative Exam Narrative: General: Well developed, frail appearing elderly woman with moderate respiratory distress Skin: Warm, dry, pink, no rashes, no visible lesions HEENT: Normocephalic, PERRLA, EOMs intact without nystagmus, conjunctiva moist, sclera is anicteric, hearing grossly normal, no sinus tenderness to percussion, oropharynx is moist patchy erythema and white exudate on tongue exudate lesions , erythema over the soft palate and uvula, posterior pharynx not visualized, no cervical lymphadenopathy Neck: Supple, no masses, thyroid non tender without thyromegaly or nodules, trachea midline, no carotid bruits or JVD, no supraclavicular lymphadenopathy Cardiac: Tachycardic rate with regular rhythm, S1-S2, no murmur, no gallops or rubs appreciated, 2+ radial pulse, 1+ dorsalis pedis pulse, capillary refill is 2 sec, no edema Chest: Increased AP diameter, symmetrical movement, breathing shallow and labored, no accessory muscle use, supraclavicular retractions productive cough, BS equal bilateral with scattered expiratory wheezes without coarseness or crackles Abdomen: Soft, no epigastric or abdominal tenderness or guarding, no masses or organomegaly, no flank or suprapubic pain, BS normal. Back: Kyphosis, no tenderness to palpation, no CVA tenderness on percussion Extremities: Full ROM, no synovial effusions or deformities, strength 5/5 and symmetrical, stable gait Neuro: GCS of 14, will open eyes to verbal stimulus, becomes awake alert and oriented, cranial nerves II-XII grossly intact, distal sensation intact to light touch, no paresthesias Psych: Appropriately responsive to stimulus, stable mood and congruent affect Objective Labs Result Diagrams: 11/11/18 16:50 11/11/18 16:50 Labs: Laboratory Results - last 24 hr 11/11/18 11/11/18 11/11/18 16:50 16:50 16:50 WBC 15.1 H RBC 4.93 Hgb 15.1 Hct 45.5 MCV 92.3 MCH 30.5 MCHC 33.1 RDW 14.7 Plt Count 327 Neut % (Auto) 82.3 H Lymph % (Auto) 8.6 L Meigs % (Auto) 8.8 Eos % (Auto) 0.1 L Baso % (Auto) 0.2 Neut # (Auto) 10617 H Lymph # (Auto) 1300 Meigs # (Auto) 1300 H Eos # (Auto) 0 Baso # (Auto) 0 PT 11.2 INR 1.0 APTT 28 ABG pH ABG pCO2 ABG pO2 ABG HCO3 ABG Total CO2 ABG O2 Saturation ABG Base Excess FiO2 Sodium 138 Potassium 4.2 Chloride 95 L Carbon Dioxide 36 H BUN 15 Creatinine 0.60 Estimated GFR > 60.0 BUN/Creatinine Ratio 25.0 H Glucose 140 H Lactate Calcium 9.3 Magnesium 1.9 Total Bilirubin 0.5 AST 43 H ALT 55 H Alkaline Phosphatase 83 Total Creatine Kinase 91 CK-MB (CK-2) TNP CK-MB (CK-2) Rel Index TNP Troponin I 0.015 B-Natriuretic Peptide < 100 Total Protein 7.3 Albumin 4.1 Globulin 3.2 Albumin/Globulin Ratio 1.3 Procalcitonin 11/11/18 11/11/18 11/11/18 16:50 17:19 17:20 WBC RBC Hgb Hct MCV MCH MCHC RDW Plt Count Neut % (Auto) Lymph % (Auto) Me[place] % (Auto) Eos % (Auto) Baso % (Auto) Neut # (Auto) Lymph # (Auto) Meigs # (Auto) Eos # (Auto) Baso # (Auto) PT INR APTT ABG pH 7.39 ABG pCO2 52.5 H ABG pO2 60 L ABG HCO3 32 H ABG Total CO2 33 H ABG O2 Saturation 90 L ABG Base Excess 7.0 H FiO2 28 Sodium Potassium Chloride Carbon Dioxide BUN Creatinine Estimated GFR BUN/Creatinine Ratio Glucose Lactate 0.9 Calcium Magnesium Total Bilirubin AST ALT Alkaline Phosphatase Total Creatine Kinase CK-MB (CK-2) CK-MB (CK-2) Rel Index Troponin I B-Natriuretic Peptide Total Protein Albumin Globulin Albumin/Globulin Ratio Procalcitonin 0.13 Assessment & Plan Plan: Assessment/Plan Narrative: 1. Acute on chronic COPD exacerbation, present on admission, acute -repeat chest x-ray today device stable COPD without infiltrates -CTA done in the ER related to chest pain with coughing -patient received nebulizer treatments in the ER and continues with mild expiratory wheezing and productive cough -Acute respiratory failure evidenced by ABG with a PO2 decreased from 78 to 60 compared to her prior ABG of 1/24 2019 -Worsen in ventilation with ABG defining a still compensated respiratory acidosis with pH of 7.39 despite an increase in pCO2 from 47.3 to 52.5 -patient high-flow O2 with oxygen saturation 92% -respiratory therapy to consult, will titrate oxygen to SpO2 greater than 88 % -will continue duo nebs q.4 hours as needed -will continue guaifenesin and Acapella, will institute chest physiotherapy -patient has elevated white count but is on steroid taper, prednisone 40 mg daily -will continue magnesium for smooth muscle relaxant effect -patient is afebrile, leukocytosis related to steroid therapy, procalcitonin is negative at 0.13, patient with history of RSV bronchitis no antibiotics indicated 2. Acute hypoxemic respiratory failure, present on admission, active -hypoxi on ABG with PO2 of 60, compensated respiratory acidosis -treatment as above 3. Oral candidiasis, possibly present on admission. Active. -white lesions on tongue and oral cavity with surrounding erythema -nystatin swish and swallow 4. Acute aphasia, present on admission, active -voice somewhat muffled -patient with minimal verbalization related to discomfort likely related to candidiasis, using white board for communication 5. Asthma, chronic, present on admission, active -admit to ER notes very tight chest improved with nebulizer treatments -continuing end expiratory wheeze, COPD versus asthma component -treatment as in #1 above 6. Anxiety and depression, chronic, present on admission. Stable. -stable mood and affect -will continue Paxil 20 mg daily Scores GCS [place] coma scale eye opening: To sound [place] coma scale verbal response: Orientated [place] coma scale motor response: Obey commands [place] coma scale total score: 14
[2018-11-11 21:30] LABS: Phosphorous 4.3 mg/dL (2.8-4.1)
[2018-11-11] MEDS: ALBUTEROL/IPRATROPIUM 3 ML AMPUL INH (21:50)
--- NOTE | 2018-11-11 22:11 | PC.NURSE ---
Evening shift Pt recieved to room 218 via [employer] @ 2115, and was transferred to bed via slide board. Rt swet up high flow O2 in room, pt was oriented to room, family at bedside. Pt was admitted, taught pt about medications, activity, and fall risk. Bed alarm on, SCD's on, tele on, cont pulse ox applied. Will continue to monitor for needs and safety. Pt had diminished lung sounds, non-productive intermittent cough. O2 sats in high 90's. Respirations were 18.
[2018-11-11] MEDS: NYSTATIN SUSP 500,000 UNIT/5 ML UDC 500000 UNIT PO (22:16)
[2018-11-12] VITALS (15 sets, daily range): BP systolic 100–136; BP diastolic 48–82; PULSE 80–113; RESP 18–24; TEMP 36.2–36.8; O2SAT 91–96; BMI 16.7
--- NOTE | 2018-11-12 | DI.ECHO.S_ITS ---
[facility]---------+ [facility] +---------+ : : [address] [place] [place] : : : : [id number] : : : : Phone: [phone]+ Echocardiogram Report + + :Name: MATRHA PEDRAZA Study Date: 11/12/2018 Height: 65 in : :[facility] Weight: 100 lb : : Gender: Female BSA: 1.5 m2 : :: 1945 Age: 73 yrs BP: 130/68 mmHg: :Reason For Study: SOB : : Performed By: Radha Warren : :Referring: UNSPECIFIED : + + Interpretation Summary The study quality was technically limited. The left ventricle is grossly normal size. The ejection fraction is estimated to be 65-70%. Diastolic parameters suggest a relaxation abnormality of the left ventricle, consistent with probable normal filling pressures. The IVC is of normal diameter and collapses greater than 50% with a sniff. This suggests a low right atrial pressure of 3 mm Hg. -This was a technically difficult study. However, the left ventricular function appears to be normal. No hemodynamically significant valvular abnormalities. The right-sided filling pressures are probably normal given small and collapsible IVC. -The underlying etiology of patient's shortness of breath could not be determined based on this echo. -No prior echocardiogram for comparison. Procedure: A two-dimensional transthoracic echocardiogram with color flow and Doppler was performed. There is no prior echocardiogram noted for this patient. The study quality was technically limited. The heart rate ranged between 89-90 bpm during the study. Left Ventricle: The left ventricle is grossly normal size. The ejection fraction is estimated to be 65-70%. Regional wall motion abnormalities cannot be excluded due to limited visualization. Diastolic parameters suggest a relaxation abnormality of the left ventricle, consistent with probable normal filling pressures. Right Ventricle: The right ventricle is not well visualized. The right ventricle is grossly normal size. Atria: The left atrium grossly appears normal in size. The right atrium grossly appears normal in size. There is no Doppler evidence for an interatrial shunt. Mitral Valve: The mitral valve is grossly normal. There is no mitral regurgitation noted. Aortic Valve: The aortic valve opens well. There is no aortic valve stenosis. No aortic regurgitation is present. Tricuspid Valve: The tricuspid valve leaflets are thin and pliable. There is mild tricuspid regurgitation. The right ventricular systolic pressure is estimated to be at least 38 mmHg based on an estimated right atrial pressure of 3 mm Hg. Pulmonic Valve: The pulmonic valve is not well visualized. Great Vessels: The aortic root is normal size. The IVC is of normal diameter and collapses greater than 50% with a sniff. This suggests a low right atrial pressure of 3 mm Hg. Pericardium/ Pleura There is no pericardial effusion. There is no pleural effusion. MMode/2D Measurements & Calculations LVIDd: 2.9 cm Ao root diam: 2.9 cm LVIDs: 1.4 cm Aortic Jxn: 2.6 cm FS: 50.7 % EPSS: 0.23 cm IVSd: 0.86 cm LVPWd: 0.70 cm LV sky. diameter/BSA (cm/m^2): 2.0 LV sys. diameter/BSA (cm/m^2): 0.98 LA dimension: 2.3 cm IVC diam: 1.5 cm Doppler Measurements & Calculations Ao V2 max: 103.6 cm/sec MV E max sherif: 61.8 cm/sec Ao V2 mean: 63.5 cm/sec MV A max sherif: 82.9 cm/sec Ao max P.3 mmHg MV E/A: 0.75 Ao mean P.0 mmHg Med Peak E' Sherif: 6.7 cm/sec Ao V2 VTI: 21.1 cm E/E' med: 9.2 Lat Peak E' Sherif: 6.0 cm/sec E/E' lat: 10.3 E/e' average: 9.7 MV dec time: 0.22 sec MV P1/2t: 67.2 msec TR max sherif: 294.0 cm/sec MV P1/2t max sherif: 62.3 cm/sec TR max P.6 mmHg MVA(P1/2t): 3.3 cm2 PA V2 max: 123.5 cm/sec PA V2 mean: 82.8 cm/sec PA mean P.2 mmHg PA Accel Time: 0.17 sec Electronically signed by: Eric Otto M.D. on Reading Physician:11/12/2018 05:11 PM
[2018-11-12] MEDS: ALBUTEROL/IPRATROPIUM 3 ML AMPUL INH ×3 (05:21→18:00)
[2018-11-12] MEDS: PANTOPRAZOLE 20 MG TABLET PO (05:22)
[2018-11-12 06:02] LABS: Add Manual Diff / Slide Review NO; Basophils Absolute Auto 0 /uL (0-100); Basophils Percent Auto 0.2 % (0-2); Eosinophils Absolute Auto 0 /uL (0-450); Hematocrit 43.1 % (36-46); Hemoglobin 14.3 g/dL (12.0-16.0); Lymphocytes Absolute Auto 500 /uL (1100-4500); Mean Corpuscular HGB Conc 33.3 % (30-36); Mean Corpuscular Hemoglobin 30.7 PG (26-34); Mean Corpuscular Volume 92.2 fL (80-100); Monocytes Absolute Auto 200 /uL (0-900); Neutrophils Absolute Auto 9100 /uL (1500-7000); Neutrophils Percent Auto 92.8 % (50-75); Platelet Count 275 X10^3/uL (150-400); Red Blood Cell Count 4.67 X10^6/uL (4.0-5.2); Red Cell Distribution Width 14.7 % (11.6-14.8); White Blood Cell Count 9.8 X10^3/uL (4.5-11.0)
[2018-11-12 06:14] LABS: Blood Urea Nitrogen 18 mg/dL (7-17); Calcium 9.1 mg/dL (8.4-10.2); Carbon Dioxide 33 mmol/L (22-32); Chloride 98 mmol/L (98-107); Estimated Glomerular Filt Rate > 60.0 mL/min (>60); Glucose 167 mg/dL (80-110); HEMOLYSIS < 15 (0-50); Potassium 4.1 mmol/L (3.4-5.1); Sodium 140 mmol/L (137-145)
[2018-11-12] MEDS: NYSTATIN SUSP 500,000 UNIT/5 ML UDC 500000 UNIT PO ×3 (09:08→21:01)
[2018-11-12] MEDS: ENOXAPARIN 40 MG/0.4 ML SYRINGE SUBCUT (09:08)
[2018-11-12] MEDS: SODIUM CHLORIDE 0.9% 1,000 ML 75 ML IV (09:09)
[2018-11-12] MEDS: MAGNESIUM OXIDE 400 MG TABLET PO (09:09)
[2018-11-12] MEDS: predniSONE 20 MG TABLET 40 MG PO (09:09)
[2018-11-12] MEDS: FLUTICASONE 220MCG HFA 120 PUFF INH (09:09)
[2018-11-12 10:27] LABS: PCO2 ABG 44.8 mmHg (35-45); pH ABG 7.46 (7.35-7.45)
[2018-11-12 10:29] LABS: HCO3 ABG 32 mmol/L (22-26); Oxygen Saturation ABG 85 % (95-100); PO2 ABG 48 mmHg (80-100); TCO2 ABG 33 mmol/L (21-31)
[2018-11-12 10:30] LABS: Fractionated Inspired Oxygen 0.21
--- NOTE | 2018-11-12 12:05 | PC.NURSE ---
day shift note assumed pt care at 0700. pt is A/Ox3, unable to talk in full sentences. Pt reports this is due to respiratory condition and mucous in throat, communicating with staff via white board. No complaints of pain at this time. Up SBA to commode. ECHO done at the bedside. Azithromycin PO started. Care continues, bed in lowest locked position and call light within reach.
[2018-11-12] MEDS: PYRIDOXINE (VITAMIN B6) 50 MG TABLET PO (12:29)
[2018-11-12] MEDS: ASPIRIN EC 81 MG TABLET PO (12:29)
[2018-11-12] MEDS: FUROSEMIDE 20 MG/2 ML VIAL 10 MG IV (12:29)
[2018-11-12] MEDS: PARoxetine 20 MG TABLET PO (12:29)
[2018-11-12] MEDS: AZITHROMYCIN 250 MG TABLET PO (12:29)
--- NOTE | 2018-11-12 13:52 | PM.PN.1 ---
Subjective Date Patient Seen: 11/12/18 Interval history: Giovana Simeon is a 73-year-old female with a past medical history significant for COPD with nocturnal oxygen dependence and anxiety and depression who presented for acute shortness of breath admitted for acute on chronic hypoxemic and hypercarbic respiratory failure and acute on chronic COPD exacerbation. Patient is resting in bed comfortably. She reports that she is ?sick?. She reports that her breathing has improved since last night. The patient's daughter is present and reports that her mother looks significantly improved since yesterday. She has had poor appetite at her assisted living facility per daughter which may be due to hypercarbia. She is hungry today. She denies headache, chest pain, abdominal pain, nausea, vomiting, fever, chills, dysuria, diarrhea constipation. She ambulates with assistance of FWW and encouraged her to be up to bedside chair with meals and ambulating at least in room if tolerated. Exam Vital Signs (past 8 hours): - 11/12/18 07:00 11/12/18 08:33 11/12/18 09:00 Temperature 97.2 F L Pulse Rate 80 82 Respiratory Rate 22 22 Blood Pressure 130/68 Pulse Oximetry 94 95 91 11/12/18 13:06 Temperature Pulse Rate 101 H Respiratory Rate 20 Blood Pressure Pulse Oximetry 96 Fraction of Inspired Oxygen 36 Oxygen Delivery Method Nasal Cannula Oxygen Flow Rate 4 Narrative Exam Narrative: General: Elderly female sitting in bed in no acute distress, quiet voice mostly non-verbal, well-developed, well-nourished, appropriately interactive. HEENT: Normocephalic, atraumatic. External ears without defect. Pupils equal, round, and reactive to light. Anicteric sclerae, moist conjunctivae, and no lid lag. Oropharynx erythematous with scattered white exudate/plaque on soft palate under dentures and tongue. Neck: Supple with full range of motion. No lymphadenopathy or thyromegaly. Cardiovascular: Regular rate and rhythm without murmurs, rubs, or gallops appreciated. Pulmonary: Clear to auscultation bilaterally with upper airway rhonchi and occasional end-expiratory wheeze. No crackles. Normal respiratory effort with no use of accessory muscles. Abdomen: Soft, bowel sounds present, nontender, nondistended. No hepatosplenomegaly or masses appreciated. Extremities: No clubbing, cyanosis, or edema. Skin: Normal temperature, turgor, and texture; no rash, ulcers, or subcutaneous nodules appreciated. Neurological: Cranial nerves grossly intact. Psychiatric: Normal mood and affect. Alert and oriented to person, place, and time. Objective Labs Result Diagrams: 11/12/18 05:43 11/12/18 05:43 Labs: Laboratory Results - last 24 hr 11/11/18 11/11/18 11/11/18 16:50 16:50 16:50 WBC 15.1 H RBC 4.93 Hgb 15.1 Hct 45.5 MCV 92.3 MCH 30.5 MCHC 33.1 RDW 14.7 Plt Count 327 Neut % (Auto) 82.3 H Lymph % (Auto) 8.6 L [place] % (Auto) 8.8 Eos % (Auto) 0.1 L Baso % (Auto) 0.2 Neut # (Auto) 21880 H Lymph # (Auto) 1300 [place] # (Auto) 1300 H Eos # (Auto) 0 Baso # (Auto) 0 PT 11.2 INR 1.0 APTT 28 ABG pH ABG pCO2 ABG pO2 ABG HCO3 ABG Total CO2 ABG O2 Saturation ABG Base Excess FiO2 Sodium 138 Potassium 4.2 Chloride 95 L Carbon Dioxide 36 H BUN 15 Creatinine 0.60 Estimated GFR > 60.0 BUN/Creatinine Ratio 25.0 H Glucose 140 H Lactate Calcium 9.3 Phosphorus Magnesium 1.9 Total Bilirubin 0.5 AST 43 H ALT 55 H Alkaline Phosphatase 83 Total Creatine Kinase 91 CK-MB (CK-2) TNP CK-MB (CK-2) Rel Index TNP Troponin I 0.015 B-Natriuretic Peptide < 100 Total Protein 7.3 Albumin 4.1 Globulin 3.2 Albumin/Globulin Ratio 1.3 Procalcitonin 11/11/18 11/11/18 11/11/18 16:50 16:50 17:19 WBC RBC Hgb Hct MCV MCH MCHC RDW Plt Count Neut % (Auto) Lymph % (Auto) [place] % (Auto) Eos % (Auto) Baso % (Auto) Neut # (Auto) Lymph # (Auto) [place] # (Auto) Eos # (Auto) Baso # (Auto) PT INR APTT ABG pH 7.39 ABG pCO2 52.5 H ABG pO2 60 L ABG HCO3 32 H ABG Total CO2 33 H ABG O2 Saturation 90 L ABG Base Excess 7.0 H FiO2 28 Sodium Potassium Chloride Carbon Dioxide BUN Creatinine Estimated GFR BUN/Creatinine Ratio Glucose Lactate Calcium Phosphorus 4.3 H Magnesium 2.0 Total Bilirubin AST ALT Alkaline Phosphatase Total Creatine Kinase CK-MB (CK-2) CK-MB (CK-2) Rel Index Troponin I B-Natriuretic Peptide Total Protein Albumin Globulin Albumin/Globulin Ratio Procalcitonin 0.13 11/11/18 11/12/18 11/12/18 17:20 05:43 05:43 WBC 9.8 RBC 4.67 Hgb 14.3 Hct 43.1 MCV 92.2 MCH 30.7 MCHC 33.3 RDW 14.7 Plt Count 275 Neut % (Auto) 92.8 H Lymph % (Auto) 5.0 L [place] % (Auto) 2.0 L Eos % (Auto) 0.0 L Baso % (Auto) 0.2 Neut # (Auto) 9100 H Lymph # (Auto) 500 L [place] # (Auto) 200 Eos # (Auto) 0 Baso # (Auto) 0 PT INR APTT ABG pH ABG pCO2 ABG pO2 ABG HCO3 ABG Total CO2 ABG O2 Saturation ABG Base Excess FiO2 Sodium 140 Potassium 4.1 Chloride 98 Carbon Dioxide 33 H BUN 18 H Creatinine 0.50 L Estimated GFR > 60.0 BUN/Creatinine Ratio 36.0 H Glucose 167 H Lactate 0.9 Calcium 9.1 Phosphorus Magnesium Total Bilirubin AST ALT Alkaline Phosphatase Total Creatine Kinase CK-MB (CK-2) CK-MB (CK-2) Rel Index Troponin I B-Natriuretic Peptide Total Protein Albumin Globulin Albumin/Globulin Ratio Procalcitonin 11/12/18 09:50 WBC RBC Hgb Hct MCV MCH MCHC RDW Plt Count Neut % (Auto) Lymph % (Auto) [place] % (Auto) Eos % (Auto) Baso % (Auto) Neut # (Auto) Lymph # (Auto) [place] # (Auto) Eos # (Auto) Baso # (Auto) PT INR APTT ABG pH 7.46 H ABG pCO2 44.8 ABG pO2 48 L* ABG HCO3 32 H ABG Total CO2 33 H ABG O2 Saturation 85 L ABG Base Excess 8.0 H FiO2 0.21 Sodium Potassium Chloride Carbon Dioxide BUN Creatinine Estimated GFR BUN/Creatinine Ratio Glucose Lactate Calcium Phosphorus Magnesium Total Bilirubin AST ALT Alkaline Phosphatase Total Creatine Kinase CK-MB (CK-2) CK-MB (CK-2) Rel Index Troponin I B-Natriuretic Peptide Total Protein Albumin Globulin Albumin/Globulin Ratio Procalcitonin Assessment & Plan Plan: Assessment/Plan Narrative: Giovana Simeon is a 73-year-old female with a past medical history significant for COPD with nocturnal oxygen dependence and anxiety and depression who presented for acute shortness of breath admitted for acute on chronic hypoxemic and hypercarbic respiratory failure and acute on chronic COPD exacerbation. 1. Acute on chronic hypoxemic and hypercarbic respiratory failure, present on admission. Improving. -Patient presented with hypoxemic and hypercarbic respiratory failure. ABG demonstrated compensated respiratory acidosis with metabolic alkalosis. Patient likely lives close to this at baseline. -Patient started on high-flow oxygen. Discontinued. Patient stable on supplemental oxygen 2-4 L which is close to her baseline oxygen requirements. Will have [facility] evaluate her for Trilogy. -Patient reports it has been 2 years since she has seen her senior planning manager. Needs close outpatient pulmonology follow-up. 2. Acute on chronic COPD exacerbation, present on admission. Active. -CXR interpreted by me demonstrates COPD with hyperinflation and flattening of the diaphragms without infiltrate. -Continued supplemental oxygen as needed to maintain oxygen saturations 88% or greater. -Continue Mucinex 1200 mg twice daily. -Continue respiratory therapy evaluation and treatment. Ordered and PEP and CPT. DuoNeb every 6 hr while awake and albuterol nebs every 2 hr as needed for shortness of breath. Discontinued fluticasone inhaled while on steroids and during treatment for thrush. Will have [facility] evaluate her for Trilogy. -Started azithromycin 250 mg daily for pulmonary anti-inflammatory benefit. -Ordered echocardiogram to assess for pulmonary hypertension and right-sided heart failure secondary to severe COPD/lung disease. 3. Recent RSV bronchitis, present on admission. Resolving. -See treatment course as above under COPD exacerbation. -No s/s of bacterial infection. Leukocytosis secondary to glucocorticoid use. 4. Acute oral candidiasis, present on admission. Active. -Sputum Gram stain demonstrated budding yeast during previous hospitalization. Continues to have white plaques/exudate on soft palate under dentures and on tongue with surrounding erythema. -Continue oral nystatin swish and swallow. 5. Acute on chronic laryngitis, present on admission. Stable. -Possibly secondary to oropharyngeal/laryngeal candidiasis? versus possible vocal cord dysfunction. -Patient reports laryngitis for 1.5 months. Patient expresses her thoughts with a whiteboard and will voice some words verbally though is uncomfortable speaking. Her speech difficulty sounds like a vocal cord dysfunction and may consider ENT evaluation and ST outpatient if does not resolve with treatment of oral candidiasis. 6. Anxiety and depression, chronic, present on admission. Stable. -Continue Paxil 20 mg daily. Disposition: Likely discharge in 1-2 days depending on improvement in acute on chronic hypoxemic and hypercarbic respiratory failure and COPD exacerbation.
[2018-11-12 15:37] LABS: Fractionated Inspired Oxygen 32; HCO3 ABG 30 mmol/L (22-26); Oxygen Saturation ABG 92 % (95-100); PCO2 ABG 43.3 mmHg (35-45); PO2 ABG 62 mmHg (80-100); TCO2 ABG 31 mmol/L (21-31); pH ABG 7.45 (7.35-7.45)
[2018-11-12 15:47] LABS: Alanine Aminotransferase 54 IU/L (9-52)
[2018-11-12 16:30] LABS: Hepatitis B Surface Antigen NEGATIVE s/c (NEGATIVE)
[2018-11-12 16:37] LABS: HIV 1 and 2 Antibody NEGATIVE (NEGATIVE); Hep C Virus Ab w/Reflex Quant NEGATIVE s/c (NEGATIVE)
[2018-11-12] MEDS: ALBUTEROL 2.5 MG/3 ML NEB (ADULT) INH ×2 (17:50→19:53)
--- NOTE | 2018-11-12 21:41 | PC.NURSE ---
Evening Shift Note- Patient alert and oriented and able to make needs known to staff. Patient pleasent, calm, and cooperative with care. Patient sating 95% on O2/nc/3l. Continuous pulse ox in place as ordered. safety measures in place. patient agrees to call for assistance. bed alarm actuvated. call huertas and phone within reach. will continue to monitor.
[2018-11-13] VITALS (14 sets, daily range): BP systolic 108–131; BP diastolic 49–77; PULSE 76–114; RESP 16–24; TEMP 36.5–36.7; O2SAT 3–98
[2018-11-13] MEDS: ALBUTEROL/IPRATROPIUM 3 ML AMPUL INH ×4 (05:14→23:07)
[2018-11-13 06:12] LABS: Add Manual Diff / Slide Review NO; Basophils Absolute Auto 0 /uL (0-100); Basophils Percent Auto 0.1 % (0-2); Eosinophils Absolute Auto 0 /uL (0-450); Eosinophils Percent Auto 0.4 % (2-4); Hematocrit 37.7 % (36-46); Hemoglobin 12.6 g/dL (12.0-16.0); Lymphocytes Absolute Auto 1300 /uL (1100-4500); Mean Corpuscular HGB Conc 33.5 % (30-36); Mean Corpuscular Hemoglobin 30.7 PG (26-34); Mean Corpuscular Volume 91.7 fL (80-100); Monocytes Absolute Auto 800 /uL (0-900); Monocytes Percent Auto 6.9 % (3-14); Neutrophils Absolute Auto 10000 /uL (1500-7000); Neutrophils Percent Auto 81.6 % (50-75); Platelet Count 286 X10^3/uL (150-400); Red Blood Cell Count 4.11 X10^6/uL (4.0-5.2); Red Cell Distribution Width 14.5 % (11.6-14.8); White Blood Cell Count 12.2 X10^3/uL (4.5-11.0)
[2018-11-13] MEDS: PANTOPRAZOLE 20 MG TABLET PO (06:43)
[2018-11-13 06:59] LABS: Alanine Aminotransferase 43 IU/L (9-52); Albumin 3.1 g/dL (3.5-5.0); Albumin Globulin Ratio 1.1 (1.0-2.8); Alkaline Phosphatase 61 U/L (38-126); Aspartate Aminotransferase 38 IU/L (14-36); Bilirubin Total 0.4 mg/dL (0.2-1.3); Blood Urea Nitrogen 18 mg/dL (7-17); Carbon Dioxide 33 mmol/L (22-32); Chloride 101 mmol/L (98-107); Estimated Glomerular Filt Rate > 60.0 mL/min (>60); Globulin 2.9 g/dL (1.7-4.1); Glucose 101 mg/dL (80-110); HEMOLYSIS < 15 (0-50); Potassium 3.8 mmol/L (3.4-5.1); Sodium 138 mmol/L (137-145)
[2018-11-13 07:15] LABS: Procalcitonin 0.21 ng/mL (<0.5)
--- NOTE | 2018-11-13 09:17 | CM.DANOTE ---
Addendum entered by Twyla Mcclain R.N. 11/13/18 11:52: Sofia from [facility] came over to assess. Stated, that they may be able to accept her back when medically stable. Asked her what skilled could do differently. Let her know, if medically unstable, may be able to monitor, but perhaps she can get P.t. to see if there has been a change in her mobility. This may also be an option. Discussed trilogy machine as well. Asked her if she knew who POA is, and she stated that she would get that information and call this telephonic nurse case manager back. They also do have transportation for Friday, but not sure of Friday, if she does go back to [facility]. Spoke to Harmony at [facility], who also stated that they could accept patient. Original Note: Addendum entered by Twyla Mcclain R.N. 11/13/18 10:05: Discussed patient at rounds. Noted that [place] was recently here on [place], and can use previous admit for skilled. Called Harmony at [facility], is aware of patient and will look at information. Faxed face sheets to her. Also, respiratory therapy is working on getting trilogy set up for patient. Tried to call daughter, mail box full. Original Note: DCP: Case received, EMR reviewed and met briefly with patient. Has aphasia, difficult to understand. Information obtained from Idalia, admissions at [facility]. DCP template completed with information currently available. Patient is a 73 year old female who admitted 11/11 in the evening via ambulance from [facility]. Patient was recently here. Came to hospital with difficulty breathing. Has history of COPD. Has apasia as well, and has difficulty speaking. Spoke to Idalia at [facility], and obtained information from her. Asked her why she came to hospital since she was recently here. Stated that her breathing was more labored. Uses a FWW in her room, and is pretty independent otherwise. Has oxygen in her room. Asked her if she could come over and assess patient for her to go back, and stated that she would send Sofia over. P: DCP to continue to follow. Should be able to return to [facility] when she is medically stable. At this time, she is under OBS. Twyla Mcclain, ANA/Helicopter Dispatcher
[2018-11-13] MEDS: AZITHROMYCIN 250 MG TABLET PO (10:00)
[2018-11-13] MEDS: MAGNESIUM OXIDE 400 MG TABLET PO (10:00)
[2018-11-13] MEDS: NYSTATIN SUSP 500,000 UNIT/5 ML UDC 500000 UNIT PO ×3 (10:00→21:45)
[2018-11-13] MEDS: ENOXAPARIN 40 MG/0.4 ML SYRINGE SUBCUT (10:00)
[2018-11-13] MEDS: predniSONE 20 MG TABLET 40 MG PO (10:01)
[2018-11-13] MEDS: guaiFENesin ER 600 MG TAB 1200 MG PO (10:01)
--- NOTE | 2018-11-13 12:46 | P.PN_ITS ---
Subjective Interval history: Giovana Simeon is a 73-year-old female with a past medical history significant for COPD with nocturnal oxygen dependence and anxiety and depression who presented for acute shortness of breath admitted for acute on chronic hypoxemic and hypercarbic respiratory failure and acute on chronic COPD exacerbation. Patient is lying in bed comfortably. The patient notes that she feels more improved since the previous day. She has had poor appetite at her assisted living facility per the chart as noted by her daughter which may be due to hypercarbia. She is hungry today, and tolerating foods well. She denies headache, chest pain, abdominal pain, nausea, vomiting, fever, chills, dysuria, diarrhea constipation. She ambulates with assistance of FWW and encouraged her to be up to bedside chair with meals and ambulating at least in room if tolerated. Exam Vital Signs (past 8 hours): - 11/13/18 05:15 11/13/18 07:28 11/13/18 09:00 Temperature 97.8 F Pulse Rate 77 76 Respiratory Rate 16 20 Blood Pressure 116/70 Pulse Oximetry 95 92 94 11/13/18 09:01 11/13/18 11:46 11/13/18 12:16 Temperature 98.1 F Pulse Rate 79 Respiratory Rate 20 Blood Pressure 126/74 Pulse Oximetry 88 L 98 3 L Fraction of Inspired Oxygen 32 Oxygen Delivery Method Nasal Cannula Oxygen Flow Rate 96 Narrative Exam Narrative: Patient is an elderly female seen lying in bed comfortably. Capable of speaking in 1 single words at a time or short phrases with significantly appreciated hoarseness and, what I perceive as pain while talking. Patient is subjectively aphasic and has a white board to write her thoughts. She has an audible cough expiratory wheeze rales and crackles at the bases of her lungs. [facility] Head: normal to inspection, normocephalic and atraumatic Ears: hearing grossly normal bilaterally Nose: external nose normal Eyes General: appearance normal, both eyes and all related structures Neck Neck: normal visual inspection, full ROM and No lymphadenopathy Thyroid: thyroid normal Chest Chest: normal inspection of the chest Resp Effort & Inspection: normal respiratory effort, not able to speak in complete sentences and cough Quality of cough: wet Auscultation: clear to auscultation bilaterally, rales and wheezes Cardio Palpation: normal PMI Rate: regular rate Rhythm: regular rhythm Heart Sounds: S1 normal, S2 normal, no click, no gallops, no murmurs and no rubs GI Inspection: normal to inspection Palpation: soft and no hepatosplenomegaly Percussion: normal to percussion Auscultation: normal bowel sounds Back/Spine/Pelvis Back: normal to inspection Neuro General: alert, awake and oriented x3 Extrem General: normal to inspection Psych Appearance: grossly normal Objective Labs Result Diagrams: 11/13/18 05:41 11/13/18 05:41 Labs: Laboratory Results - last 24 hr 11/12/18 11/12/18 11/12/18 15:00 15:15 15:15 WBC RBC Hgb Hct MCV MCH MCHC RDW Plt Count Neut % (Auto) Lymph % (Auto) [place] % (Auto) Eos % (Auto) Baso % (Auto) Neut # (Auto) Lymph # (Auto) [place] # (Auto) Eos # (Auto) Baso # (Auto) ABG pH 7.45 ABG pCO2 43.3 ABG pO2 62 L ABG HCO3 30 H ABG Total CO2 31 ABG O2 Saturation 92 L ABG Base Excess 6.0 H FiO2 32 Sodium Potassium Chloride Carbon Dioxide BUN Creatinine Estimated GFR BUN/Creatinine Ratio Glucose Calcium Total Bilirubin AST ALT 54 H Alkaline Phosphatase Total Protein Albumin Globulin Albumin/Globulin Ratio Procalcitonin Hep Bs Antigen Negative Hepatitis C Antibody Negative HIV 1&2 Antibody Negative 11/13/18 11/13/18 11/13/18 05:41 05:41 05:41 WBC 12.2 H RBC 4.11 Hgb 12.6 Hct 37.7 MCV 91.7 MCH 30.7 MCHC 33.5 RDW 14.5 Plt Count 286 Neut % (Auto) 81.6 H Lymph % (Auto) 11.0 L [place] % (Auto) 6.9 Eos % (Auto) 0.4 L Baso % (Auto) 0.1 Neut # (Auto) 11921 H Lymph # (Auto) 1300 [place] # (Auto) 800 Eos # (Auto) 0 Baso # (Auto) 0 ABG pH ABG pCO2 ABG pO2 ABG HCO3 ABG Total CO2 ABG O2 Saturation ABG Base Excess FiO2 Sodium 138 Potassium 3.8 Chloride 101 Carbon Dioxide 33 H BUN 18 H Creatinine 0.60 Estimated GFR > 60.0 BUN/Creatinine Ratio 30.0 H Glucose 101 Calcium 9.0 Total Bilirubin 0.4 AST 38 H ALT 43 Alkaline Phosphatase 61 Total Protein 6.0 L Albumin 3.1 L Globulin 2.9 Albumin/Globulin Ratio 1.1 Procalcitonin 0.21 Hep Bs Antigen Hepatitis C Antibody HIV 1&2 Antibody Assessment & Plan Plan: Assessment/Plan Narrative: Giovana Simeon is a 73-year-old female with a past medical history significant for COPD with nocturnal oxygen dependence and anxiety and depression who presented for acute shortness of breath admitted for acute on chronic hypoxemic and hypercarbic respiratory failure and acute on chronic COPD exacerbation is doing better today. 1. Acute on chronic hypoxemic and hypercarbic respiratory failure, present on admission. Improving. -Patient presented with hypoxemic and hypercarbic respiratory failure. ABG demonstrated compensated respiratory acidosis with metabolic alkalosis. Patient likely lives close to this at baseline. -Patient started on high-flow oxygen. Was discontinued yesterday. Patient stable on supplemental oxygen 2-4 L which is close to her baseline oxygen requirements. [facility] to evaluate her for Trilogy. -Patient reports it has been 2 years since she has seen her hook loader. Needs close outpatient pulmonology follow-up. - Patient requires nocturnal and daytime ventilation. Home BiPAP insufficient due to severity of condition. COPD is a primary cause of CRF/hypercapnia 2. Acute on chronic COPD exacerbation, present on admission. Active. -CXR interpreted previously by Dr. Torrez and by myself today demonstrates COPD with hyperinflation and flattening of the diaphragms without infiltrate. -Continued supplemental oxygen as needed to maintain oxygen saturations 88% or greater. -Continue Mucinex 1200 mg twice daily. -Continue respiratory therapy evaluation and treatment. Ordered and PEP and CPT. DuoNeb every 6 hr while awake and albuterol nebs every 2 hr as needed for shortness of breath. Discontinued fluticasone inhaled while on steroids and during treatment for thrush. Will have [facility] evaluate her for Trilogy. -Started azithromycin 250 mg daily for pulmonary anti-inflammatory benefit. -Ordered echocardiogram to assess for pulmonary hypertension and right-sided heart failure secondary to severe COPD/lung disease. 3. Recent RSV bronchitis, present on admission. Resolving. -See treatment course as above under COPD exacerbation. -No s/s of bacterial infection. Leukocytosis secondary to glucocorticoid use. 4. Acute oral candidiasis, present on admission. Active. -Sputum Gram stain demonstrated budding yeast during previous hospitalization. Continues to have white plaques/exudate on soft palate under dentures and on tongue with surrounding erythema. -Continue oral nystatin swish and swallow. 5. Acute on chronic laryngitis, present on admission. Stable. -Possibly secondary to oropharyngeal/laryngeal candidiasis? versus possible vocal cord dysfunction. -Patient reports laryngitis for 1.5 months. Patient expresses her thoughts with a whiteboard and will voice some words verbally though is uncomfortable speaking. Her speech difficulty sounds like a vocal cord dysfunction and may consider ENT evaluation and ST outpatient if does not resolve with treatment of oral candidiasis. 6. Anxiety and depression, chronic, present on admission. Stable. -Continue Paxil 20 mg daily. 7. Global aphasia, present on admission. Chronically stable -patient talks in one-word 2 short phrases, and supplemented with white board use. Potentially chronic global aphasia, consider discomfort due to potential vocal cord dysfunction. -continue to monitor, no treatment needed at this time
--- NOTE | 2018-11-13 13:40 | CM.DPC ---
Addendum entered by Twyla Mcclain R.N. 11/13/18 15:14: Idalia unsure if can provide transportation, unable to get in touch with straddle truck driver. Will plan tomorrow at 1:00. Updated patient, as well as Julia Lamont, at [facility]. Will call her tomorrow, so she can have trilogy delivered. Original Note: Addendum entered by Twyla Mcclain R.N. 11/13/18 14:03: Asked Idalia at [facility] if she can take patient today, for their is no medical need for her to be here if trilogy can be delivered today. She stated that she would call back and let us know. Will update Dr. Juarez, if they can accept and can get orders. Original Note: DCP Cont: Spoke to patient, does not want to go to skilled. Spoke with Julia at [facility]. Stated that they could deliver the trilogy today. Went ahead and ordered physical therapy for patient as well. Sofia had been here already to assess patient. Called Idalia and informed her that patient does not want to go to skilled. Concern is for transportation tomorrow. She stated that van may be available, for they have a patient that needs to go to dialysis. Stated that she would call us back and let her know. In the meantime, patient will be going back to [facility] pending transportation. P: DCP to continue to assess. Plan is for patient to return to [facility] when stable. Trilogy will be delivered there as well. Twyla Mcclain RN/Receiver Stocker
[2018-11-13] MEDS: PARoxetine 20 MG TABLET PO (13:56)
[2018-11-13] MEDS: ASPIRIN EC 81 MG TABLET PO (13:57)
[2018-11-13] MEDS: PYRIDOXINE (VITAMIN B6) 50 MG TABLET PO (15:00)
--- NOTE | 2018-11-13 15:54 | CM.DPC ---
DCP Cont: Met with Kaitlyn, she is social security benefits interviewer from [facility] member, who has been working with patient. She stated that [facility] is supposed to contact her when patient is hospitalized, and did not. Discussed case. She stated that after talking to patient, she is anxious. She is anxious about her daughter coming to visit, but did not state why. She gave her phone number to reach out to her, she is not available on weekends. Her phone number is: [phone]. She is able to help with patient's cultural needs, such as healing. Stated that if patient can no longer stay at [facility] [place] [facility], she is able to help with this. Discussed comfort care, which may also be an option for her. P: DCP to continue to assess. Plan is for her to go back to [facility] tomorrow. superintendent tests is 1:00. Will contact Julia at [facility] at approximatly late morning to confirm, so she can send out respiratory therapist, Demetrius, to help get patient set up. Twyla Mcclain RN/Regional Merchandising Manager
--- NOTE | 2018-11-13 16:28 | PT.IPTN ---
Current Diagnoses Chronic obstructive pulmonary disease with (acute) exacerbation (11/11/18) Chronic obstructive pulmonary disease, unspecified (11/11/18) Acute and chronic respiratory failure with hypoxia (11/11/18) Physical Therapy Treatment Note M3 PT-IP Subjective Start: 11/13/18 16:25 Freq: NEEDED Status: Active Protocol: Document 11/13/18 16:27 AB (Rec: 11/13/18 16:28 AB [id number]) Subjective Physical Therapy Visit Type Type Patient Refusal Notes checked on pt. worker's compensation claims examiner present. pt has aphasia and difficulty with verbalization. social sciences instructor stated that pt is frustrated because she was just in the hospital and feels like she got d/c'd too soon and now back here in the hospital. pt refused to do PT at this time but agreed for PT to check back tomorrow.
--- NOTE | 2018-11-13 22:18 | PC.NURSE ---
1500- assumed care of pt from outgoing shift. PT awake and alert. uses white board for some communications as pt has baseline slurred/garbled words. Pt uses call light. denies further needs at this time on 3l nc. tolerating well. will continue to monitor. bed alarm on. side rails upx3
[2018-11-14 05:00] VITALS: BP 104/61; PULSE 69; RESP 20; TEMP 36.9; O2SAT 95
[2018-11-14] MEDS: PANTOPRAZOLE 20 MG TABLET PO (05:48)
[2018-11-14 06:01] LABS: Add Manual Diff / Slide Review NO; Basophils Absolute Auto 0 /uL (0-100); Basophils Percent Auto 0.2 % (0-2); Eosinophils Absolute Auto 0 /uL (0-450); Eosinophils Percent Auto 0.4 % (2-4); Hematocrit 38.3 % (36-46); Hemoglobin 12.8 g/dL (12.0-16.0); Lymphocytes Absolute Auto 1500 /uL (1100-4500); Lymphocytes Percent Auto 14.9 % (25-40); Mean Corpuscular HGB Conc 33.6 % (30-36); Mean Corpuscular Hemoglobin 30.7 PG (26-34); Mean Corpuscular Volume 91.6 fL (80-100); Monocytes Absolute Auto 800 /uL (0-900); Monocytes Percent Auto 8.2 % (3-14); Neutrophils Absolute Auto 7900 /uL (1500-7000); Neutrophils Percent Auto 76.3 % (50-75); Platelet Count 309 X10^3/uL (150-400); Red Blood Cell Count 4.18 X10^6/uL (4.0-5.2); Red Cell Distribution Width 14.6 % (11.6-14.8); White Blood Cell Count 10.3 X10^3/uL (4.5-11.0)
[2018-11-14 06:04] LABS: Alanine Aminotransferase 35 IU/L (9-52); Albumin 3.2 g/dL (3.5-5.0); Albumin Globulin Ratio 1.1 (1.0-2.8); Alkaline Phosphatase 60 U/L (38-126); Aspartate Aminotransferase 21 IU/L (14-36); Bilirubin Total 0.3 mg/dL (0.2-1.3); Blood Urea Nitrogen 12 mg/dL (7-17); Calcium 8.8 mg/dL (8.4-10.2); Carbon Dioxide 33 mmol/L (22-32); Chloride 100 mmol/L (98-107); Estimated Glomerular Filt Rate > 60.0 mL/min (>60); Globulin 2.8 g/dL (1.7-4.1); Glucose 86 mg/dL (80-110); HEMOLYSIS < 15 (0-50); Potassium 3.6 mmol/L (3.4-5.1); Sodium 137 mmol/L (137-145)
[2018-11-14 07:00] VITALS: O2SAT 94
[2018-11-14 08:05] VITALS: BP 141/73; PULSE 75; RESP 20; TEMP 36.7; O2SAT 96
[2018-11-14] MEDS: ENOXAPARIN 40 MG/0.4 ML SYRINGE SUBCUT (09:56)
[2018-11-14] MEDS: MAGNESIUM OXIDE 400 MG TABLET PO (09:57)
[2018-11-14] MEDS: guaiFENesin ER 600 MG TAB 1200 MG PO (09:57)
[2018-11-14] MEDS: NYSTATIN SUSP 500,000 UNIT/5 ML UDC 500000 UNIT PO (09:57)
[2018-11-14] MEDS: predniSONE 20 MG TABLET 40 MG PO (09:57)
[2018-11-14] MEDS: AZITHROMYCIN 250 MG TABLET PO (09:57)
--- NOTE | 2018-11-14 10:19 | PT.IPTN ---
Current Diagnoses Chronic obstructive pulmonary disease with (acute) exacerbation (11/11/18) Chronic obstructive pulmonary disease, unspecified (11/11/18) Acute and chronic respiratory failure with hypoxia (11/11/18) Physical Therapy Treatment Note M3 PT-IP Subjective Start: 11/13/18 16:25 Freq: NEEDED Status: Active Protocol: Document 11/14/18 10:18 AB (Rec: 11/14/18 10:19 AB [id number]) Subjective Physical Therapy Visit Type Type Patient Refusal Notes checked on pt and pt refused PT. stated that she is tired and did not sleep last night and wants to sleep. pts wants PT to check on her in the afternoon.
[2018-11-14] MEDS: ALBUTEROL/IPRATROPIUM 3 ML AMPUL INH (11:02)
[2018-11-14 11:05] VITALS: PULSE 78; RESP 18; O2SAT 94
--- NOTE | 2018-11-14 11:23 | PM.HP.1 ---
History of Present Illness Chief complaint: SOB Patient History Medical History Anxiety and depression (Chronic) Expressive aphasia (Chronic) H/O: hysterectomy (Acute) Oral candidiasis (Acute) COPD (chronic obstructive pulmonary disease) (Acute) Asthma (Chronic) Dependence on nocturnal oxygen therapy (Chronic) Social History Smoking Status: Former smoker alcohol intake: current Family & Social History Social History: household members other Prior Living Arrangements Assisted Living Safety & Behavioral: Feels Safe in Current Yes Environment Been Physically Hurt or No Threatened By a Person Suicidal Ideation Description None Suicide Plan Description No Plan Tobacco & Substance use: Smoking Status Former smoker alcohol intake current alcohol intake frequency 0-2 drinks per day Substance Use Type does not use Meds Home Medications Medication Instructions Recorded Confirmed Type albuterol sulfate [Ventolin HFA] 2 inh IH BIDP PRN #0 01/21/12 11/11/18 History paroxetine HCl [Paxil] 20 mg QNOON #0 01/21/12 11/11/18 History acetaminophen 650 mg PO Q4H PRN 11/05/18 11/11/18 History albuterol sulfate 2.5 mg INHALATION DAILY 11/05/18 11/11/18 History aspirin 81 mg PO QNOON 11/05/18 11/11/18 History fluticasone [Flovent HFA] 1 puff INHALATION BID 11/05/18 11/11/18 History guaifenesin 1,200 mg PO BID 11/05/18 11/11/18 History ibuprofen 600 mg PO Q6H PRN 11/05/18 11/11/18 History lorazepam 0.5 mg PO Q6H PRN 11/05/18 11/11/18 History pyridoxine (vitamin B6) [Vitamin 50 mg PO QNOON 11/05/18 11/11/18 History B-6] clotrimazole 10 mg MM 5XD #50 tab 11/09/18 11/11/18 Rx albuterol sulfate 3 ml INHALATION Q8H PRN 11/11/18 11/11/18 History bisacodyl 5 mg PO PRN PRN 11/11/18 11/11/18 History bisacodyl 10 mg PO PRN PRN 11/11/18 11/11/18 History bisacodyl 10 mg ME DAILY PRN 11/11/18 11/11/18 History dextran 70-hypromellose 1 drp OPHTHALMIC (EYE) PRN PRN 11/11/18 11/11/18 History [Artificial Tears (PF)] guaifenesin 600 mg PO Q12H PRN 11/11/18 11/11/18 History oxycodone-acetaminophen [Percocet] 1 tab PO Q4HP PRN 11/11/18 11/11/18 History azithromycin [Zithromax Z-Lane] 250 mg PO DAILY 3 Days tab 11/14/18 Rx Allergies Allergy/AdvReac Type Severity Reaction Status Date / Time naproxen Allergy Intermediate WEAKNESS Verified 11/11/18 16:59 AND SEVERE ITCHING penicillin G Allergy Intermediate SKIN Verified 11/11/18 16:59 REACTION, BURNING PEELING SKIN codeine AdvReac Mild STOMACH Verified 11/11/18 16:59 milk AdvReac Unknown LACTOSE Verified 11/11/18 16:59 INTOLERANCE Exam Vital Signs (past 8 hours): - 11/14/18 05:00 11/14/18 08:05 11/14/18 11:05 Temperature 98.4 F 98.0 F Pulse Rate 69 75 78 Respiratory Rate 20 20 18 Blood Pressure 104/61 141/73 H Pulse Oximetry 95 96 94 Fraction of Inspired Oxygen 32 Oxygen Delivery Method Nasal Cannula Oxygen Flow Rate 3 Objective Labs Result Diagrams: 11/14/18 05:22 11/14/18 05:22 Labs: Laboratory Results - last 24 hr 11/14/18 11/14/18 05:22 05:22 WBC 10.3 RBC 4.18 Hgb 12.8 Hct 38.3 MCV 91.6 MCH 30.7 MCHC 33.6 RDW 14.6 Plt Count 309 Neut % (Auto) 76.3 H Lymph % (Auto) 14.9 L [place] % (Auto) 8.2 Eos % (Auto) 0.4 L Baso % (Auto) 0.2 Neut # (Auto) 7900 H Lymph # (Auto) 1500 [place] # (Auto) 800 Eos # (Auto) 0 Baso # (Auto) 0 Sodium 137 Potassium 3.6 Chloride 100 Carbon Dioxide 33 H BUN 12 Creatinine 0.60 Estimated GFR > 60.0 BUN/Creatinine Ratio 20.0 Glucose 86 Calcium 8.8 Total Bilirubin 0.3 AST 21 ALT 35 Alkaline Phosphatase 60 Total Protein 6.0 L Albumin 3.2 L Globulin 2.8 Albumin/Globulin Ratio 1.1
--- NOTE | 2018-11-14 11:30 | P.DS_ITS ---
History of Present Illness Date Patient Seen: 11/14/18 Time Patient Seen: 11:40 Chief complaint: SOB Narrative: This is a 73-year-old female with a prior history of COPD, RSV bronchitis, asthma, candidiasis, aphasia, depression that presents to the ER with increased shortness of breath. The patient was treated in the hospital and discharged on 11/09/2018 following treatment for RSV bronchitis. Patient was discharged to [facility] where she is on continuous O2 therapy. Staff noted increased difficulty breathing with worsening cough refractory to nebulizer treatments. The patient was brought to the ER for evaluation. In the ER per MD report the patient was found to be very tight not moving any air with an increased O2 requirement. The patient received 3 nebulizer treatments and Solu-Medrol in the ER. Patient also complained of chest pain with coughing for which a CTA was obtained of her reading is not available at the time of this writing. On gross review no significant abnormalities are identified. Chest x-ray finds stable COPD without infiltrates. An ABG was taken which shows a compensated respiratory acidosis with a pH is 7.39, pCO2 of 52.5 Marianne PO2 of 60. Her bicarb was 32 with a base excess is 7. The patient was placed on high-flow O2 with improvement in oxygen saturation. At time of encounter the patient is denying complaints of fever and is afebrile, complains of chest pain and headache with cough. The patient also reports continuous nausea which she indicates has been going on for ?some time?. She reports no bowel bladder complaints, joint or muscle pains, numbness or tingling. Discharge Providers Date of admission: 11/11/18 20:08 Primary care physician: Luanne Loving MD Consults: 11/11/18 17:02 Consult to Respiratory Therapy Evaluate & Treat Comment: Physician Instructions: Evaluate and treat 11/11/18 21:51 Consult to Dietitian, Adult Routine Comment: Reason For Exam: MNA less than 10 11/13/18 13:32 Consult to Physical Therapy Evaluate & Treat Comment: Physician Instructions: Evaluate and Treat Discharge provider: Brenda Juarez MD Discharge Date: 11/14/18 Summary Discharge Diagnosis: 1. Acute on chronic hypoxemic and hypercarbic respiratory failure, present on admission. -Patient presented with hypoxemic and hypercarbic respiratory failure. ABG demonstrated compensated respiratory acidosis with metabolic alkalosis. Patient likely lives close to this at baseline. -Patient started on high-flow oxygen. Patient now stable on supplemental oxygen 2-4 L which is close to her baseline oxygen requirements. [facility] to arrange home Trilogy today. 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 Needs close outpatient pulmonology follow-up - Dr. Hayes. - Patient requires nocturnal and daytime ventilation. Home BiPAP insufficient due to severity of condition. COPD is a primary cause of CRF/hypercapnia. 2. Acute on chronic COPD exacerbation, present on admission. Active. -No systemic steroids given during this hospital stay. -CXR interpreted previously by Dr. Ramos and by myself today demonstrates COPD with hyperinflation and flattening of the diaphragms without infiltrate. -Continued supplemental oxygen as needed to maintain oxygen saturations 88% or greater. -Continue Mucinex 1200 mg twice daily. . -Started azithromycin 250 mg daily for pulmonary anti-inflammatory benefit, to continue for 3 more days. -Echocardiogram is unremarkable. 3. Recent RSV bronchitis, present on admission. Resolving. -See treatment course as above under COPD exacerbation. -No s/s of bacterial infection. Leukocytosis secondary to glucocorticoid use. 4. Acute oral candidiasis, present on admission. Active. -Sputum Gram stain demonstrated budding yeast during previous hospitalization. Noted to have white plaques/exudate on soft palate under dentures and on tongue with surrounding erythema. -Completed treatment with oral nystatin swish and swallow. 5. Acute on chronic laryngitis, present on admission. Stable. -Possibly secondary to oropharyngeal/laryngeal candidiasis? versus possible vocal cord dysfunction. -Patient reports laryngitis for 1.5 months. Patient expresses her thoughts with a whiteboard and will voice some words verbally though is uncomfortable speaking. Her speech difficulty sounds like a vocal cord dysfunction and may consider ENT evaluation and ST outpatient if does not resolve with treatment of oral candidiasis. 6. Anxiety and depression, chronic, present on admission. Stable. -Continue Paxil 20 mg daily. 7. Global aphasia, present on admission. Chronically stable -patient talks in one-word 2 short phrases, and supplemented with white board use. Potentially chronic global aphasia, consider discomfort due to potential vocal cord dysfunction. -continue to monitor, no treatment needed at this time Hospital Course: See above Status at Discharge Functional status at discharge: wheelchair bound Overall status at discharge: patient is back to baseline Time Spent with Patient Less than 30 minutes Exam Vital Signs (past 8 hours): - 11/14/18 05:00 11/14/18 08:05 11/14/18 11:05 Temperature 98.4 F 98.0 F Pulse Rate 69 75 78 Respiratory Rate 20 20 18 Blood Pressure 104/61 141/73 H Pulse Oximetry 95 96 94 Fraction of Inspired Oxygen 32 Oxygen Delivery Method Nasal Cannula Oxygen Flow Rate 3 Narrative Exam Narrative: Alert and oriented in no apparent distress. Heart is regular rate and rhythm without murmur. Lungs are clear to auscultation bilaterally. Extremities have no ankle edema. The CBC and BMP today are normal. Objective Labs Result Diagrams: 11/14/18 05:22 11/14/18 05:22 Labs: Laboratory Results - last 24 hr 11/14/18 11/14/18 05:22 05:22 WBC 10.3 RBC 4.18 Hgb 12.8 Hct 38.3 MCV 91.6 MCH 30.7 MCHC 33.6 RDW 14.6 Plt Count 309 Neut % (Auto) 76.3 H Lymph % (Auto) 14.9 L [place] % (Auto) 8.2 Eos % (Auto) 0.4 L Baso % (Auto) 0.2 Neut # (Auto) 7900 H Lymph # (Auto) 1500 [place] # (Auto) 800 Eos # (Auto) 0 Baso # (Auto) 0 Sodium 137 Potassium 3.6 Chloride 100 Carbon Dioxide 33 H BUN 12 Creatinine 0.60 Estimated GFR > 60.0 BUN/Creatinine Ratio 20.0 Glucose 86 Calcium 8.8 Total Bilirubin 0.3 AST 21 ALT 35 Alkaline Phosphatase 60 Total Protein 6.0 L Albumin 3.2 L Globulin 2.8 Albumin/Globulin Ratio 1.1 Discharge Plan Discharge Plan Patient Disposition: Home Discharge comment: Please follow up at the [facility] in one week. Also follow up with Dr. Hayes and use the Trilogy ventilator at night and during the day as needed. Discharge Med Rec/Prescriptions Prescriptions: New azithromycin [Zithromax Z-Lane] 250 mg Tablet 250 mg PO DAILY 3 Days RF: 0 Continue paroxetine HCl [Paxil] 10 MG tablet 20 mg QNOON Qty: 0 RF: 0 albuterol sulfate [Ventolin HFA] 90 MCG/PUFF HFA aerosol inhaler 2 inh IH BIDP PRN (Reason: Shortness Of Breath) Qty: 0 RF: 0 acetaminophen 325 mg Tablet 650 mg PO Q4H PRN (Reason: Fever Or Pain) RF: 0 albuterol sulfate 2.5 mg /3 mL (0.083 %) Solution For Nebulization 2.5 mg INHALATION DAILY RF: 0 aspirin 81 mg Tablet,Delayed Release (Dr/Ec) 81 mg PO QNOON RF: 0 lorazepam 0.5 mg Tablet 0.5 mg PO Q6H PRN (Reason: Anxiety) RF: 0 pyridoxine (vitamin B6) [Vitamin B-6] 50 mg Tablet 50 mg PO QNOON RF: 0 fluticasone [Flovent HFA] 220 mcg/actuation Hfa Aerosol Inhaler 1 puff INHALATION BID RF: 0 ibuprofen 600 mg Tablet 600 mg PO Q6H PRN (Reason: pain) RF: 0 guaifenesin 600 mg Tablet Extended Release 12hr 1,200 mg PO BID RF: 0 clotrimazole 10 mg krystian 10 mg MM 5XD Qty: 50 RF: 0 albuterol sulfate 2.5 mg /3 mL (0.083 %) solution for nebulization 3 ml Inhalation Q8H PRN (Reason: Shortness Of Breath) RF: 0 bisacodyl 10 mg Suppository 10 mg IA DAILY PRN (Reason: no BM x 5 days) RF: 0 bisacodyl 5 mg Tablet 5 mg PO PRN PRN (Reason: no bm x 3 days) RF: 0 bisacodyl 5 mg Tablet 10 mg PO PRN PRN (Reason: no bm x 4 days) RF: 0 dextran 70-hypromellose [Artificial Tears (PF)] Dropperette 1 drp ophthalmic (eye) PRN PRN (Reason: Eye Irritation) RF: 0 guaifenesin 600 mg Tablet Extended Release 12hr 600 mg PO Q12H PRN (Reason: Congestion) RF: 0 oxycodone-acetaminophen [Percocet] 5 MG/325 MG tablet 1 tab PO Q4HP PRN (Reason: pain) RF: 0 Discontinued prednisone 20 mg Tablet 40 mg PO DAILYX3 RF: 0 Follow up/Referrals: Luanne Loving MD [Primary Care Provider] - Provider Discharge Instructions Diet: Regular Visit Report/Discharge Packet Instructions: DI for Chronic Obstructive Pulmonary Disease Visit Report Forms: Stroke Signs & Symptoms Discharge Data Primary Care Provider: Luanne Loving Attending Provider: David Ray Admmarybel Date/Time: 11/11/18 20:08
--- NOTE | 2018-11-14 11:34 | CM.DPC ---
Addendum entered by Twyla Mcclain R.N. 11/14/18 14:18: Patient was picked up by [facility], had to first fax signed med sheets, and they had to go back to facility to get oxygen. Original Note: Addendum entered by Twyla Mcclain R.N. 11/14/18 12:06: Received discharge summary and med sheets. Courtney gave med sheets to Dr. Juarez to sign. Faxed DC summary and med sheet to [facility]. Gave Courtney phone number to [facility] to call in report. Spoke to Aneesh again at [facility] to confirm delivery of trilogy, updated this information to nurse Courtney as well. Original Note: Spoke to hospitalist, Dr. Juarez, at rounds. Let him know that she can be discharged today, for [facility] can pick her up at approximately 1300. Called Idalia at [facility] to confirm pick-up, and she did confirm. Attempted to reach Julia at [facility] on her cell phone, to deliver trilogy. Was unable to reach her, so called main number on card. Spoke to Aneesh, who works for [employer] who stated that this would be delivered between 1:30-2:00. He stated that he would call facility. Updated Liam, primary nurse today. Awaiting for Dr. Juarez and paid internship to put in discharge summary and orders. Have H&P only. Reminded him that she is being picked up at 1:00 today, and will need signed meds. P: Patient is to be picked up today, and will return to [facility]. Will have her trilogy machine delivered today, and they will inservice staff on how to use this as well. Twyla Mcclain, ANA/Personal Lines Advisor
[2018-11-14] MEDS: PYRIDOXINE (VITAMIN B6) 50 MG TABLET PO (12:33)
[2018-11-14] MEDS: PARoxetine 20 MG TABLET PO (12:33)
[2018-11-14] MEDS: ASPIRIN EC 81 MG TABLET PO (12:33)
--- NOTE | 2018-11-14 13:34 | PC.NURSE ---
report called to jarek at [facility]. orders clarified per her request. packet sent with transf staff. patient left on 3l/nc per her own hm o2 tank.
[2018-11-16 08:19] LABS: Hepatitis B Surf Ab Qualitativ Borderline (Nonreactive)
== END 2018-11-14 13:30 | disposition home or self-care (01) ==
LOC: ED 19:32 → AC 20:08
PROVIDERS: Family Medicine; Internal Medicine; Admitting Provider Nurse Practitioner Adult Health; Emergency Provider Emergency Medicine; Family Provider Physician Assistant; PCP Internal Medicine; Visit Provider Nurse Practitioner Adult Health
DX: J96.21 Acute and chronic respiratory failure with hypoxia (principal); J44.1 Chronic obstructive pulmonary disease with (acute) exacerbation; Z99.81 Dependence on supplemental oxygen; F41.9 Anxiety disorder, unspecified; F32.9 Major depressive disorder, single episode, unspecified; R47.01 Aphasia; Z87.891 Personal history of nicotine dependence; B37.0 Candidal stomatitis; J04.0 Acute laryngitis
CPT/HCPCS: 36415; 36600; 71045; 71275; 80048; 80053; 82550; 82805; 83605; 83735; 83880; 84100; 84145; 84484; 85025; 85610; 85730; 87040; 93005; 94640; 94667; 94668; 94760; 94762; 96374; 99284; 99285; G0378; C8929; J1650; J1940; J2930; J7613; Q9967

== ENCOUNTER 2019-01-09 18:48 | Inpatient (IN) | payer MEDICARE, MEDICAID, OTHER, SELFPAY ==
[2018-11-12 16:28] VITALS: BMI 16.7
[2019-01-09] VITALS (14 sets, daily range): BP systolic 97–140; BP diastolic 59–80; PULSE 113–133; RESP 10–100; TEMP 36–37.2; O2SAT 92–100; BMI 15.7
--- NOTE | 2019-01-09 18:50 | DI.RAD.S_ITS ---
PROCEDURE: XR CHEST 1V INDICATIONS: shortness of breath, sudden onset. h/o copd TECHNIQUE: One view of the chest was acquired. COMPARISON: [facility], CT, CT ANGIO CHEST PE PROTOCOL, 11/11/2018, 18:52. [facility], CR, XR CHEST 1V, 11/11/2018, 17:44. FINDINGS: Surgical changes and devices: None. Lungs and pleura: Severe emphysematous change. No focal pulmonary infiltrates. No pleural fluid. Mediastinum: Mediastinal contours appear normal. Heart size is normal. Bones and chest wall: No suspicious bony lesions. Overlying soft tissues appear unremarkable. IMPRESSION: 1. COPD. 2. No evidence acute pulmonary process. Dictated by: Yeyo Marshall M.D. on 01/09/2019 at 20:20 Approved by: Yeyo Marshall M.D. on 01/09/2019 at 20:21
--- NOTE | 2019-01-09 19:07 | ED.SOB ---
HPI - SOB/Dyspnea General Chief Complaint: Shortness of Breath/Dyspnea Stated Complaint: Respiratory Distress Time Seen by Provider: 01/09/19 18:50 Source: patient, family and EMS Mode of arrival: EMS Limitations: no limitations History of Present Illness A 73-year-old female former smoker with extensive history of COPD 3 L home oxygen presents by EMS for shortness of breath and some productive cough. Patient denies any fever or shaking chills. She is not dizzy or weak or lightheaded. She is requiring increased oxygen and EMS put continuous nebs on her prior to her arrival. She was most recently seen for similar about a month ago and admitted a for few days. She has had no nausea, vomiting or diarrhea. Her symptoms started 3 days ago and gradually worsened since. She denies any missed medications or dietary indiscretions MD Complaint: shortness of breath and cough Onset (ago): day(s) Severity: severe Consistency/Duration: constant Relieving factors: nothing Exacerbating factors: exertion, movement and coughing Known history of: COPD Associated symptoms: denies other symptoms Treatment prior to arrival: oxygen and bronchodilator Related Data Home oxygen amount: 3 liters Home Medications Medication Instructions Recorded Confirmed albuterol sulfate [Ventolin HFA] 2 inh IH BIDP PRN #0 01/21/12 01/09/19 paroxetine HCl [Paxil] 20 mg QNOON #0 01/21/12 01/09/19 Flovent HFA 1 puff INHALATION BID 11/05/18 01/09/19 acetaminophen 650 mg PO Q4H PRN 11/05/18 01/09/19 albuterol sulfate 2.5 mg INHALATION DAILY 11/05/18 01/09/19 aspirin 81 mg PO QNOON 11/05/18 01/09/19 guaifenesin 1,200 mg PO BID 11/05/18 01/09/19 ibuprofen 600 mg PO Q6H PRN 11/05/18 01/09/19 lorazepam 0.5 mg PO Q6H PRN 11/05/18 01/09/19 pyridoxine (vitamin B6) [Vitamin 50 mg PO QNOON 11/05/18 01/09/19 B-6] bisacodyl 5 mg PO PRN PRN 11/11/18 01/09/19 bisacodyl 10 mg PO PRN PRN 11/11/18 01/09/19 bisacodyl 10 mg ND DAILY PRN 11/11/18 01/09/19 guaifenesin 600 mg PO Q12H PRN 11/11/18 01/09/19 oxycodone-acetaminophen [Percocet] 1 tab PO Q4HP PRN 11/11/18 01/09/19 Allergies Allergy/AdvReac Type Severity Reaction Status Date / Time naproxen Allergy Intermediate WEAKNESS Verified 01/09/19 18:49 AND SEVERE ITCHING penicillin G Allergy Intermediate SKIN Verified 01/09/19 18:49 REACTION, BURNING PEELING SKIN codeine AdvReac Mild STOMACH Verified 01/09/19 18:49 milk AdvReac Unknown LACTOSE Verified 01/09/19 18:49 INTOLERANCE Review of Systems Constitutional Denies chills, Denies fever(s), Denies lethargy and Denies weakness Eyes Denies change in vision, Denies eye discharge, Denies irritation and Denies loss of vision ENT Ears, Nose, Mouth, and Throat: Denies change in voice, Denies neck pain and Denies sore throat Cardiovascular Denies chest pain, Denies irregular heart rhythm, Denies lightheadedness, Denies palpitations, Reports dyspnea, Reports dyspnea on exertion and Denies orthopnea Respiratory Reports cough, Reports dyspnea, Reports dyspnea on exertion and Reports wheezing Gastrointestinal Gastrointestinal: Denies abdominal pain, Denies change in bowel habits, Denies diarrhea, Denies nausea and Denies vomiting Genitourinary Denies hematuria, Denies flank pain, Denies urinary incontinence and Denies urinary urgency Musculoskeletal Denies neck pain Integumentary/Breasts Denies pruritus, Denies erythema, Denies rash and Denies wounds Neurologic Denies confusion, Denies loss of vision and Denies weakness Psychiatric Denies anxiety, Denies confusion, Denies depression, Denies homicidal ideation and Denies suicidal ideation Endocrine Denies palpitations Hematologic/Lymphatic Denies easy bruising Allergic/Immunologic Reports wheezing [facility] Medical History Anxiety and depression (Chronic) Expressive aphasia (Chronic) COPD (chronic obstructive pulmonary disease) (Acute) H/O: hysterectomy (Acute) Oral candidiasis (Acute) Asthma (Chronic) Dependence on nocturnal oxygen therapy (Chronic) Family History (Updated 11/11/18 @ 21:19 by ESTELLA Clemente) Mother No known problems Father No known problems Son Hemophilia Social History household members: other Smoking Status: Former smoker alcohol intake: current Family History Mother No known problems Father No known problems Son Hemophilia Social History household members: other Smoking Status: Former smoker alcohol intake: current Exam Narrative Exam Narrative: GENERAL: 73-year-old female appears older than stated age, is in obvious respiratory distress as evidenced by tachypnea, use of accessory muscles. She is frail and quite thin HEAD: Temporal wasting. Atraumatic. Normocephalic. No temporal or scalp tenderness. EYES: Pupils equal round and reactive. Extraocular motions intact. No scleral icterus. No injection or drainage. ENT: Nose without bleeding, purulent drainage or septal hematoma. Throat without erythema, tonsillar hypertrophy or exudate. Uvula midline. Airway patent. NECK: Trachea midline. No JVD or lymphadenopathy. Supple, nontender, no meningeal signs. CARDIOVASCULAR: Irregularly tachycardic and regular without murmurs, gallops, or rubs. RESPIRATORY: Prolonged expiratory phase with decreased breath sounds bilaterally, prolonged expiratory wheeze, with coarse breath sounds in bilateral bases GASTROINTESTINAL: Abdomen soft, non-tender, nondistended. No hepato-splenomegaly, or palpable masses. No guarding. EXTREMITIES: No clubbing, cyanosis, or edema. No joint tenderness, effusion, or edema noted. BACK: Nontender without deformity or crepitance. No flank tenderness. NEURO: AOx3. SKIN: No rash or erythema. Initial Vital Signs Initial Vital Signs: Vital Signs Temperature 98.9 F 01/09/19 18:55 Pulse Rate 127 H 01/09/19 18:55 Respiratory Rate 21 01/09/19 18:55 Blood Pressure 140/66 01/09/19 18:55 Pulse Oximetry 100 01/09/19 18:55 Course Orders Ordered: ED Orders 01/09/19 18:49 Consult to Respiratory Therapy Evaluate & Treat EKG-12 Lead Stat 01/09/19 18:50 Chest [XR chest 1V] Stat 01/09/19 19:10 Arterial Blood Gas Stat 01/09/19 19:21 B Type Natriuretic Peptide Stat Complete Blood Count AUTO DIFF Stat Comprehensive Metabolic Panel Stat Lactate (Lactic Acid) Stat 01/09/19 19:31 Influenza A and B by PCR Rapid Stat 01/09/19 19:58 BiPAP Ventilatory Support RT PROTOCOL Albuterol (Ventolin) 2.5 mg INH Q20M PRN PRN Reason: wheezing Stop: 01/10/19 00:01 Levofloxacin (Levaquin) 500 mg in 100 mls @ 100 mls/hr IV NOW ONE Stop: 01/09/19 21:06 Discontinued Medications Methylprednisolone (Solu-Medrol 125 Mg Vial) 125 mg IV NOW ONE Stop: 01/09/19 20:08 Reevaluation(s) Reevaluation #1: Patient not showing much improvement with increased oxygen via nasal cannula and repeat the bronchodilators. ABG notes respiratory acidosis with CO2 72, O2 70 patient placed on bipap and shows near immediate improvement in her work of breathing and is now resting comfortably Vital Signs - 8 hr 01/09/19 18:55 01/09/19 19:45 01/09/19 19:59 Temperature 98.9 F Pulse Rate 127 H 133 H Respiratory Rate 21 100 H 29 H Blood Pressure 140/66 137/72 Blood Pressure [Right Arm] 137/72 Pulse Oximetry 100 100 94 01/09/19 20:05 Temperature Pulse Rate Respiratory Rate 29 H Blood Pressure Blood Pressure [Right Arm] Pulse Oximetry 94 MDM - SOB/Dyspnea Lab Data Result diagrams: 01/09/19 19:21 01/09/19 19:21 Lab Results 01/09/19 01/09/19 01/09/19 Range/Units 19:10 19:21 19:21 WBC 14.8 H (4.5-11.0) X10^3/uL RBC 4.67 (4.0-5.2) X10^6/uL Hgb 14.2 (12.0-16.0) g/dL Hct 43.5 (36-46) % MCV 93.0 (80-100) fL MCH 30.3 (26-34) PG MCHC 32.6 (30-36) % RDW 15.3 H (11.6-14.8) % Plt Count 259 (150-400) X10^3/uL Neut % (Auto) 75.8 H (50-75) % Lymph % (Auto) 16.7 L (25-40) % [place] % (Auto) 7.1 (3-14) % Eos % (Auto) 0.3 L (2-4) % Baso % (Auto) 0.1 (0-2) % Neut # (Auto) 91814 H (2465-7980) /uL Lymph # (Auto) 2500 (5557-4184) /uL [place] # (Auto) 1000 H (0-900) /uL Eos # (Auto) 0 (0-450) /uL Baso # (Auto) 0 (0-100) /uL ABG pH 7.28 L* (7.35-7.45) ABG pCO2 72.3 H* (35-45) mmHg ABG pO2 70 L (80-100) mmHg ABG HCO3 34 H (22-26) mmol/L ABG Total CO2 36 H (21-31) mmol/L ABG O2 Saturation 90 L (95-100) % ABG Base Excess 7.0 H (-2-2) mmol/L FiO2 32 Sodium 142 (137-145) mmol/L Potassium 3.4 (3.4-5.1) mmol/L Chloride 96 L (98-107) mmol/L Carbon Dioxide 35 H (22-32) mmol/L BUN 13 (7-17) mg/dL Creatinine 0.50 L (0.52-1.04) mg/dL Estimated GFR > 60.0 (>60) mL/min BUN/Creatinine Ratio 26.0 H (6-22) Glucose 147 H (80-110) mg/dL Lactate (0.7-2.1) mmol/L Calcium 9.3 (8.4-10.2) mg/dL Total Bilirubin 0.5 (0.2-1.3) mg/dL AST 44 H (14-36) IU/L ALT 38 (9-52) IU/L Alkaline Phosphatase 121 (38-126) U/L Total Protein 7.2 (6.3-8.2) g/dL Albumin 4.1 (3.5-5.0) g/dL Globulin 3.1 (1.7-4.1) g/dL Albumin/Globulin Ratio 1.3 (1.0-2.8) Influenza A & B (PCR) (Negative) 01/09/19 01/09/19 Range/Units 19:21 19:31 WBC (4.5-11.0) X10^3/uL RBC (4.0-5.2) X10^6/uL Hgb (12.0-16.0) g/dL Hct (36-46) % MCV (80-100) fL MCH (26-34) PG MCHC (30-36) % RDW (11.6-14.8) % Plt Count (150-400) X10^3/uL Neut % (Auto) (50-75) % Lymph % (Auto) (25-40) % [place] % (Auto) (3-14) % Eos % (Auto) (2-4) % Baso % (Auto) (0-2) % Neut # (Auto) (5618-9291) /uL Lymph # (Auto) (2733-9752) /uL [place] # (Auto) (0-900) /uL Eos # (Auto) (0-450) /uL Baso # (Auto) (0-100) /uL ABG pH (7.35-7.45) ABG pCO2 (35-45) mmHg ABG pO2 (80-100) mmHg ABG HCO3 (22-26) mmol/L ABG Total CO2 (21-31) mmol/L ABG O2 Saturation (95-100) % ABG Base Excess (-2-2) mmol/L FiO2 Sodium (137-145) mmol/L Potassium (3.4-5.1) mmol/L Chloride (98-107) mmol/L Carbon Dioxide (22-32) mmol/L BUN (7-17) mg/dL Creatinine (0.52-1.04) mg/dL Estimated GFR (>60) mL/min BUN/Creatinine Ratio (6-22) Glucose (80-110) mg/dL Lactate 2.1 (0.7-2.1) mmol/L Calcium (8.4-10.2) mg/dL Total Bilirubin (0.2-1.3) mg/dL AST (14-36) IU/L ALT (9-52) IU/L Alkaline Phosphatase (38-126) U/L Total Protein (6.3-8.2) g/dL Albumin (3.5-5.0) g/dL Globulin (1.7-4.1) g/dL Albumin/Globulin Ratio (1.0-2.8) Influenza A & B (PCR) Negative (Negative) MDM Narrative Medical decision making narrative: Patient presents in obvious, significant respiratory distress and requires multiple interventions to stabilize her condition. In the end BiPAP did a tremendous job in improving her presentation, she has been given multiple bronchodilators, steroids and antibiotics. She will be placed in the intensive care unit and evaluated by Dr. Sullivan there Critical Care Time Critical Care Time: Yes Total Critical Care Time: 30 Attestation: The high probability of a clinically significant, sudden or life threatening deterioration of the [respiratory] system(s) required my full and direct attention, intervention and personal management. The aggregate critical care time was [30] minutes. This time is in addition to time spent performing reported procedures but includes the following: [x] Data Review and interpretation [x] Patient assessment and monitoring of vital signs [x] Documentation [x] Medication orders and management Discharge Plan Departure Patient Disposition: Admitted As Inpatient Clinical Impression: Acute and chronic respiratory failure with hypoxia, Acute exacerbation of chronic obstructive pulmonary disease (COPD)
[2019-01-09 19:35] LABS: Add Manual Diff / Slide Review NO; Basophils Absolute Auto 0 /uL (0-100); Basophils Percent Auto 0.1 % (0-2); Eosinophils Absolute Auto 0 /uL (0-450); Eosinophils Percent Auto 0.3 % (2-4); Hematocrit 43.5 % (36-46); Hemoglobin 14.2 g/dL (12.0-16.0); Lymphocytes Absolute Auto 2500 /uL (1100-4500); Lymphocytes Percent Auto 16.7 % (25-40); Mean Corpuscular HGB Conc 32.6 % (30-36); Mean Corpuscular Hemoglobin 30.3 PG (26-34); Monocytes Absolute Auto 1000 /uL (0-900); Monocytes Percent Auto 7.1 % (3-14); Neutrophils Absolute Auto 11200 /uL (1500-7000); Neutrophils Percent Auto 75.8 % (50-75); Platelet Count 259 X10^3/uL (150-400); Red Blood Cell Count 4.67 X10^6/uL (4.0-5.2); Red Cell Distribution Width 15.3 % (11.6-14.8); White Blood Cell Count 14.8 X10^3/uL (4.5-11.0)
[2019-01-09 19:42] LABS: Alanine Aminotransferase 38 IU/L (9-52); Albumin 4.1 g/dL (3.5-5.0); Albumin Globulin Ratio 1.3 (1.0-2.8); Alkaline Phosphatase 121 U/L (38-126); Aspartate Aminotransferase 44 IU/L (14-36); Bilirubin Total 0.5 mg/dL (0.2-1.3); Blood Urea Nitrogen 13 mg/dL (7-17); Calcium 9.3 mg/dL (8.4-10.2); Carbon Dioxide 35 mmol/L (22-32); Chloride 96 mmol/L (98-107); Estimated Glomerular Filt Rate > 60.0 mL/min (>60); Globulin 3.1 g/dL (1.7-4.1); Glucose 147 mg/dL (80-110); HEMOLYSIS < 15 (0-50); Lactate (Lactic Acid) 2.1 mmol/L (0.7-2.1); Potassium 3.4 mmol/L (3.4-5.1); Sodium 142 mmol/L (137-145); Total Protein 7.2 g/dL (6.3-8.2)
[2019-01-09 19:52] LABS: Influenza A and B by PCR Rapid Negative (Negative)
[2019-01-09 19:57] LABS: HCO3 ABG 34 mmol/L (22-26); Oxygen Saturation ABG 90 % (95-100); PCO2 ABG 72.3 mmHg (35-45); PO2 ABG 70 mmHg (80-100); TCO2 ABG 36 mmol/L (21-31); pH ABG 7.28 (7.35-7.45)
[2019-01-09 19:58] LABS: Fractionated Inspired Oxygen 32
[2019-01-09] MEDS: levoFLOXacin 500 MG/100 ML PIGGYBACK 100 MG IV (20:14)
[2019-01-09] MEDS: methylPREDNISolone 125 MG/2 ML VIAL IV (20:14)
[2019-01-09] MEDS: ALBUTEROL 2.5 MG/3 ML NEB (ADULT) INH (20:15)
[2019-01-09 20:17] LABS: B Type Natriuretic Peptide 136 (<100)
--- NOTE | 2019-01-09 21:06 | DI.CT.S_ITS ---
PROCEDURE: CT ANGIO CHEST PE PROTOCOL INDICATIONS: CP, SOB, hypoxia TECHNIQUE: After the administration of intravenous contrast, 2 mm thick sections acquired from the pulmonary apices to the posterior costophrenic angles. 3-dimensional maximum intensity projection (MIP) coronal and sagittal reformats were then acquired through the thorax. For radiation dose reduction, the following was used: automated exposure control, adjustment of mA and/or kV according to patient size. COMPARISON: [facility], CT, CT ANGIO CHEST PE PROTOCOL, 11/11/2018, 18:52. FINDINGS: Image quality: Excellent. Pulmonary arteries: Pulmonary arteries are normal in size, and demonstrate no intraluminal filling defects to suggest central pulmonary embolism. Lungs and pleura: Severe biapical centrilobular emphysema. Posterior basal consolidation in the left lower lobe has mostly resolved. There is now patchy consolidation in the right middle lobe. No pleural effusions or pneumothorax. Central and peripheral airways are patent. Mediastinum: Heart size is normal, without pericardial effusion. No mediastinal or hilar adenopathy. Thoracic aorta is normal in caliber and enhancement. Esophagus is normal in caliber, without hiatal hernia. Bones and chest wall: No suspicious bony lesions. Ribs and thoracic spine appear intact throughout. Thyroid gland is unremarkable. No axillary or supraclavicular adenopathy. Abdomen: Visualized upper abdominal solid organs appear normal in the early arterial phase of enhancement. IMPRESSION: 1. No evidence of pulmonary emboli. 2. Severe centrilobular emphysema. 3. Near-complete resolution of focal left basilar pneumonia. 4. Development of patchy pneumonia in the right middle lobe. Dictated by: Yeyo Marshall M.D. on 01/09/2019 at 21:46 Approved by: Yeyo Marshall M.D. on 01/09/2019 at 21:51
--- NOTE | 2019-01-09 22:06 | PM.HP.1 ---
History of Present Illness Date Patient Seen: 01/09/19 Time Patient Seen: 22:06 Chief complaint: Respiratory Distress Narrative: 73-year-old female resident of [facility] presents with increasing shortness of breath. She has chronic respiratory failure on chronic oxygen about 3 L she usually. She was last here in the hospital in October with COPD exacerbation also had RSV pneumonia earlier in the winter. She had been doing well up until just the last couple days and increasing shortness of breath cough and this evening became very short of breath paramedics were called and she evidently had O2 sats in the 80s at that time. She was brought in here to the emergency room she was given nebulizer treatments and given some Solu-Medrol. Her blood gas showed a pH is 7.28 with pCO2 above 70. She was placed on BiPAP in the ER and is breathing a little bit easier now. The patient has limited ability to speak and soak communicates pretty extensively with a white board. She writes down her answers and complaints and history pretty much on the white board. She denies any fevers denies any chest pains. Patient History Medical History Anxiety and depression (Chronic) Expressive aphasia (Chronic) COPD (chronic obstructive pulmonary disease) (Acute) H/O: hysterectomy (Acute) Oral candidiasis (Acute) Asthma (Chronic) Dependence on nocturnal oxygen therapy (Chronic) Family History Mother No known problems Father No known problems Son Hemophilia Social History household members: other Smoking Status: Former smoker alcohol intake: current Family & Social History Family History Mother No known problems Father No known problems Son Hemophilia Social History: household members other Safety & Behavioral: Feels Safe in Current Yes Environment Tobacco & Substance use: Smoking Status Former smoker alcohol intake current alcohol intake frequency 0-2 drinks per day Substance Use Type does not use Meds Home Medications Medication Instructions Recorded Confirmed Type albuterol sulfate [Ventolin HFA] 2 inh IH BIDP PRN #0 01/21/12 01/09/19 History paroxetine HCl [Paxil] 20 mg QNOON #0 01/21/12 01/09/19 History Flovent HFA 1 puff INHALATION BID 11/05/18 01/09/19 History acetaminophen 650 mg PO Q4H PRN 11/05/18 01/09/19 History albuterol sulfate 2.5 mg INHALATION DAILY 11/05/18 01/09/19 History aspirin 81 mg PO QNOON 11/05/18 01/09/19 History guaifenesin 1,200 mg PO BID 11/05/18 01/09/19 History ibuprofen 600 mg PO Q6H PRN 11/05/18 01/09/19 History lorazepam 0.5 mg PO Q6H PRN 11/05/18 01/09/19 History pyridoxine (vitamin B6) [Vitamin 50 mg PO QNOON 11/05/18 01/09/19 History B-6] bisacodyl 5 mg PO PRN PRN 11/11/18 01/09/19 History bisacodyl 10 mg PO PRN PRN 11/11/18 01/09/19 History bisacodyl 10 mg IN DAILY PRN 11/11/18 01/09/19 History guaifenesin 600 mg PO Q12H PRN 11/11/18 01/09/19 History oxycodone-acetaminophen [Percocet] 1 tab PO Q4HP PRN 11/11/18 01/09/19 History Allergies Allergy/AdvReac Type Severity Reaction Status Date / Time naproxen Allergy Intermediate WEAKNESS Verified 01/09/19 18:49 AND SEVERE ITCHING penicillin G Allergy Intermediate SKIN Verified 01/09/19 18:49 REACTION, BURNING PEELING SKIN codeine AdvReac Mild STOMACH Verified 01/09/19 18:49 milk AdvReac Unknown LACTOSE Verified 01/09/19 18:49 INTOLERANCE Review of Systems Constitutional Constitutional: Denies fever(s) Eyes Eyes: Reports system reviewed; no additional complaints, except as documented ENT Ears, Nose, Mouth, and Throat: Yes system reviewed; no additional complaints, except as documented Cardiovascular Cardiovascular: Denies chest pain, Reports fast heart rate and Reports shortness of breath Respiratory Respiratory: Reports chest congestion, Reports cough, Reports dyspnea and Reports wheezing Gastrointestinal Gastrointestinal: Reports system reviewed and no additional complaints, except as documented Genitourinary Genitourinary: Reports system reviewed and no additional complaints, except as documented Musculoskeletal Musculoskeletal: Reports system reviewed; no additional complaints, except as documented Integumentary/Breasts Skin/Breast: Reports system reviewed and no additional complaints, except as documented Neurologic Neurologic: Reports system reviewed and no additional complaints, except as documented Psychiatric Psychiatric: Reports system reviewed and no additional complaints, except as documented Endocrine Endocrine: Reports system reviewed and no additional complaints, except as documented Hematologic/Lymphatic Hematologic/Lymphatic: Reports system reviewed and no additional complaints, except as documented Allergic/Immunologic Allergic/Immunologic: Reports system reviewed and no additional complaints, except as documented and Reports wheezing Exam Vital Signs (past 8 hours): - 01/09/19 18:55 01/09/19 19:45 01/09/19 19:59 Temperature 98.9 F Pulse Rate 127 H 133 H Respiratory Rate 21 100 H 29 H Blood Pressure 140/66 137/72 Blood Pressure [Right Arm] 137/72 Pulse Oximetry 100 100 94 01/09/19 20:05 01/09/19 20:30 01/09/19 21:33 Temperature Pulse Rate 130 H 116 H Respiratory Rate 29 H 30 H 26 H Blood Pressure Blood Pressure [Right Arm] 109/65 134/59 L Pulse Oximetry 94 92 01/09/19 21:43 Temperature Pulse Rate Respiratory Rate Blood Pressure 97/80 Blood Pressure [Right Arm] Pulse Oximetry Fraction of Inspired Oxygen 35 Oxygen Delivery Method BiPAP Oxygen Flow Rate 8 Narrative Exam Narrative: She is tachypneic she is wearing the BiPAP mask. She is sleepy but is arousable and answers questions readily using her white board to communicate HEENT exam unremarkable Neck is supple no bruit noted Heart tachycardic no murmur Lungs increased respiratory rate using the BiPAP mask currently diffuse rhonchi noted prolonged expiratory phase Abdomen thin soft nontender Lower extremities no significant edema Neuro exam awake alert oriented no focal deficits Skin warm and dry Objective Labs Result Diagrams: 01/09/19 19:21 01/09/19 19:21 Labs: Laboratory Results - last 24 hr 01/09/19 01/09/19 01/09/19 19:10 19:21 19:21 WBC 14.8 H RBC 4.67 Hgb 14.2 Hct 43.5 MCV 93.0 MCH 30.3 MCHC 32.6 RDW 15.3 H Plt Count 259 Neut % (Auto) 75.8 H Lymph % (Auto) 16.7 L [place] % (Auto) 7.1 Eos % (Auto) 0.3 L Baso % (Auto) 0.1 Neut # (Auto) 67884 H Lymph # (Auto) 2500 [place] # (Auto) 1000 H Eos # (Auto) 0 Baso # (Auto) 0 ABG pH 7.28 L* ABG pCO2 72.3 H* ABG pO2 70 L ABG HCO3 34 H ABG Total CO2 36 H ABG O2 Saturation 90 L ABG Base Excess 7.0 H FiO2 32 Sodium 142 Potassium 3.4 Chloride 96 L Carbon Dioxide 35 H BUN 13 Creatinine 0.50 L Estimated GFR > 60.0 BUN/Creatinine Ratio 26.0 H Glucose 147 H Lactate Calcium 9.3 Total Bilirubin 0.5 AST 44 H ALT 38 Alkaline Phosphatase 121 B-Natriuretic Peptide Total Protein 7.2 Albumin 4.1 Globulin 3.1 Albumin/Globulin Ratio 1.3 Influenza A & B (PCR) 01/09/19 01/09/19 01/09/19 19:21 19:21 19:31 WBC RBC Hgb Hct MCV MCH MCHC RDW Plt Count Neut % (Auto) Lymph % (Auto) [place] % (Auto) Eos % (Auto) Baso % (Auto) Neut # (Auto) Lymph # (Auto) [place] # (Auto) Eos # (Auto) Baso # (Auto) ABG pH ABG pCO2 ABG pO2 ABG HCO3 ABG Total CO2 ABG O2 Saturation ABG Base Excess FiO2 Sodium Potassium Chloride Carbon Dioxide BUN Creatinine Estimated GFR BUN/Creatinine Ratio Glucose Lactate 2.1 Calcium Total Bilirubin AST ALT Alkaline Phosphatase B-Natriuretic Peptide 136 H Total Protein Albumin Globulin Albumin/Globulin Ratio Influenza A & B (PCR) Negative Assessment & Plan Assessment & Plan narrative: One. Acute hypercapnic and hypoxic respiratory failure pH on the blood gas 7.28 pCO2 of 72 P O2 of 70 this was on 32% FiO2. Her normal pCO2 is 40 on her last blood gas back in October. Patient has responded favorably to the BiPAP with good clinical response. The cause of this seems to be a COPD exacerbation. X-ray does not show any acute infiltrate. Plan to place her on nebulizer treatments continue her Flovent. Plan to add Solu-Medrol and antibiotics for now. Continue she will be admitted to ICU for the BiPAP per respiratory therapy to manage the BiPAP. Anticipate her being in the hospital at least 2 midnights 2. History of COPD now with exacerbation she has history of chronic hypoxic respiratory failure on chronic 3 L oxygen nasal cannula at the alf. 3. History of depression she is on paroxetine. Plan to continue Four. DVT prophylaxis plan to use Lovenox 5. Code status she is listed as full code in her alf paperwork. This will continue. Time Spent With Patient Time with patient: Greater than 35 minutes
--- NOTE | 2019-01-09 22:28 | PC.NURSE ---
2114: Patient having increased work of breathing, unable to sip water. Increased heart rate in 140s. Afebrile at this time. Notified provider.
--- NOTE | 2019-01-09 22:32 | PC.NURSE ---
Attempted to call daughter, per patient's request, three times. No answer and voicemail box is full. Patient is aware.
--- NOTE | 2019-01-09 23:10 | PC.NURSE ---
nicolasa note pt received from ER on bipap. Pt asking for water and to remove bipap. Bipap removed and 3.5 L O2 added via NC. Called Dr. Sullivan to report intolerance of bipap and no diet order. RT Christos concerned about possible aspiration. New orders for NPO, Speech therapy eval for aspiration, changed some meds to IV/IN.
[2019-01-09] MEDS: LACTATED RINGERS 1,000 ML 65 ML IV (23:23)
[2019-01-09] MEDS: ALBUTEROL/IPRATROPIUM 3 ML AMPUL INH (23:30)
[2019-01-10] VITALS (33 sets, daily range): BP systolic 97–135; BP diastolic 49–91; PULSE 77–112; RESP 10–29; TEMP 0–37.1; O2SAT 94–100
[2019-01-10] MEDS: LORazepam 2 MG/ML SYRINGE 0.5 MG IV ×2 (00:16→19:49)
[2019-01-10] MEDS: methylPREDNISolone 125 MG/2 ML VIAL 60 MG IV ×4 (00:17→22:44)
[2019-01-10] MEDS: metroNIDAZOLE 500 MG/100 ML PIGGYBACK 100 MG IV ×4 (00:17→21:38)
[2019-01-10] MEDS: CEFTRIAXONE 1 GM/50 ML FROZ.PIGGY IV ×2 (00:18→22:44)
[2019-01-10] MEDS: SODIUM CHLORIDE 0.9% FLUSH 10 ML IV (00:34)
[2019-01-10 01:30] LABS: Fractionated Inspired Oxygen 35; HCO3 ABG 28 mmol/L (22-26); Oxygen Saturation ABG 91 % (95-100); PCO2 ABG 50.4 mmHg (35-45); PO2 ABG 66 mmHg (80-100); TCO2 ABG 29 mmol/L (21-31); pH ABG 7.35 (7.35-7.45)
[2019-01-10] MEDS: ALBUTEROL/IPRATROPIUM 3 ML AMPUL INH ×6 (03:44→22:59)
[2019-01-10 05:12] LABS: Add Manual Diff / Slide Review NO; Basophils Absolute Auto 0 /uL (0-100); Basophils Percent Auto 0.1 % (0-2); Eosinophils Absolute Auto 0 /uL (0-450); Hematocrit 38.4 % (36-46); Hemoglobin 12.9 g/dL (12.0-16.0); Lymphocytes Absolute Auto 200 /uL (1100-4500); Lymphocytes Percent Auto 2.9 % (25-40); Mean Corpuscular HGB Conc 33.6 % (30-36); Mean Corpuscular Hemoglobin 30.6 PG (26-34); Mean Corpuscular Volume 91.2 fL (80-100); Monocytes Absolute Auto 100 /uL (0-900); Monocytes Percent Auto 1.8 % (3-14); Neutrophils Absolute Auto 7400 /uL (1500-7000); Neutrophils Percent Auto 95.2 % (50-75); Platelet Count 209 X10^3/uL (150-400); Red Blood Cell Count 4.21 X10^6/uL (4.0-5.2); Red Cell Distribution Width 14.8 % (11.6-14.8); White Blood Cell Count 7.8 X10^3/uL (4.5-11.0)
[2019-01-10 05:16] LABS: Alanine Aminotransferase 27 IU/L (9-52); Albumin 3.8 g/dL (3.5-5.0); Albumin Globulin Ratio 1.3 (1.0-2.8); Alkaline Phosphatase 93 U/L (38-126); Aspartate Aminotransferase 27 IU/L (14-36); BUN Creatinine Ratio 32.5 (6-22); Bilirubin Total 0.3 mg/dL (0.2-1.3); Blood Urea Nitrogen 13 mg/dL (7-17); Calcium 9.2 mg/dL (8.4-10.2); Carbon Dioxide 30 mmol/L (22-32); Chloride 99 mmol/L (98-107); Estimated Glomerular Filt Rate > 60.0 mL/min (>60); Globulin 2.9 g/dL (1.7-4.1); Glucose 246 mg/dL (80-110); HEMOLYSIS < 15 (0-50); Potassium 3.4 mmol/L (3.4-5.1); Sodium 140 mmol/L (137-145); Total Protein 6.7 g/dL (6.3-8.2)
--- NOTE | 2019-01-10 08:27 | CM.DANOTE ---
DCP: Case received, EMR reviewed and checked on patient. Name placed on white board in room. Information regarding patient obtained by Idalia at [facility]. DCP template completed with information currently available. Patient is a 73 year old female who admitted yesterday evening to the care of the hospitalist team. PCP: Dr. Loving. Payer: Medicare/Medicaid. Patient came to hospital via EMS due to respiratory distress. Patient resides at [facility]. She is on oxygen at facility, 3 liters. Patient has history of COPD. Patient holds diagnosis of exacerbated COPD along with Pneumonia. Patient is a full code. She is on BIPAP in ICU at this time. Patient sleeping, not able to have her sign IMM form at this time. Attempted to reach daughter, Fay. Her voice mail was full. Obtained information regarding patient from Idalia, admissions nurse at [facility]. Stated that her daughter also works at [facility]. Patient uses a front wheel walker. She mentioned that patient manages her own oxygen, and does not wear it at all times, although she is to be on continuous oxygen. Idalia mentioned that patient is fairly independent, does have stand by assist with showers. P: DCP to continue to follow closely, and see how she progresses here in hospital, to note if and when she can return to [facility], versus correction. Twyla Mcclain RN/Environmental Protection Inspector
[2019-01-10] MEDS: ENOXAPARIN 40 MG/0.4 ML SYRINGE SUBCUT (11:00)
--- NOTE | 2019-01-10 16:49 | PM.PN.1 ---
Subjective Date Patient Seen: 01/10/19 Interval history: Giovana Simeon is a 73-year-old female with a past medical history significant for COPD with nocturnal oxygen dependence and anxiety and depression who presented for acute shortness of breath admitted for acute on chronic hypoxemic and hypercarbic respiratory failure, acute on chronic COPD exacerbation, and aspiration pneumonia. Patient is resting in bed comfortably. She is quite somnolent but will respond to questions with yes or no answers only as she has chronic laryngitis. Will only open eyes when asked. She denies pain. She endorses BiPAP mask being uncomfortable. Otherwise she denies headache, chest pain, abdominal pain, nausea, vomiting, fever, chills, dysuria, diarrhea or constipation. She reports that she is ?sick?. She reports that her breathing has improved since last night. The patient's daughter is present and reports that her mother looks significantly improved since yesterday. She has had poor appetite at her assisted living facility per daughter which may be due to hypercarbia. She is hungry today. She denies headache, chest pain, abdominal pain, nausea, vomiting, fever, chills, dysuria, diarrhea constipation. She ambulates with assistance of FWW and encouraged her to be up to bedside chair with meals and ambulating at least in room if tolerated. Exam Vital Signs (past 8 hours): - 01/10/19 09:00 01/10/19 10:00 01/10/19 11:00 Temperature 98.8 F Pulse Rate 79 85 90 Respiratory Rate 16 18 20 Blood Pressure 108/62 124/49 L 110/60 Pulse Oximetry 100 100 97 01/10/19 12:00 01/10/19 12:59 01/10/19 14:00 Temperature Pulse Rate 89 89 98 H Respiratory Rate 19 19 21 Blood Pressure 105/57 L 106/58 L 115/70 Pulse Oximetry 98 96 100 01/10/19 15:00 01/10/19 16:16 Temperature Pulse Rate 99 H 83 Respiratory Rate 20 19 Blood Pressure 108/66 Pulse Oximetry 100 100 Fraction of Inspired Oxygen 35 Oxygen Delivery Method Nasal Cannula Oxygen Flow Rate 3 Narrative Exam Narrative: General: Elderly female lying in bed on BiPAP, in no acute distress, somnolent but responsive. HEENT: Normocephalic, atraumatic. External ears without defect. Pupils equal, round, and reactive to light. Anicteric sclerae, moist conjunctivae, and no lid lag. Neck: Supple with full range of motion. No lymphadenopathy or thyromegaly. Cardiovascular: Regular rate and rhythm without murmurs, rubs, or gallops appreciated. Pulmonary: Diminished throughout with very little air movement and scattered rhonchi on right side. No crackles. Normal respiratory effort with no use of accessory muscles. Abdomen: Soft, scaphoid, bowel sounds present, nontender, nondistended. No hepatosplenomegaly or masses appreciated. Extremities: No clubbing, cyanosis, or edema. Skin: Normal temperature, turgor, and texture; no rash, ulcers, or subcutaneous nodules appreciated. Neurological: Cranial nerves grossly intact. Objective Labs Result Diagrams: 01/10/19 04:54 01/10/19 04:54 Labs: Laboratory Results - last 24 hr 01/09/19 01/09/19 01/09/19 19:10 19:21 19:21 WBC 14.8 H RBC 4.67 Hgb 14.2 Hct 43.5 MCV 93.0 MCH 30.3 MCHC 32.6 RDW 15.3 H Plt Count 259 Neut % (Auto) 75.8 H Lymph % (Auto) 16.7 L [place] % (Auto) 7.1 Eos % (Auto) 0.3 L Baso % (Auto) 0.1 Neut # (Auto) 40529 H Lymph # (Auto) 2500 [place] # (Auto) 1000 H Eos # (Auto) 0 Baso # (Auto) 0 ABG pH 7.28 L* ABG pCO2 72.3 H* ABG pO2 70 L ABG HCO3 34 H ABG Total CO2 36 H ABG O2 Saturation 90 L ABG Base Excess 7.0 H FiO2 32 Sodium 142 Potassium 3.4 Chloride 96 L Carbon Dioxide 35 H BUN 13 Creatinine 0.50 L Estimated GFR > 60.0 BUN/Creatinine Ratio 26.0 H Glucose 147 H Lactate Calcium 9.3 Total Bilirubin 0.5 AST 44 H ALT 38 Alkaline Phosphatase 121 B-Natriuretic Peptide Total Protein 7.2 Albumin 4.1 Globulin 3.1 Albumin/Globulin Ratio 1.3 Nasal Screen MRSA (PCR) Influenza A & B (PCR) 01/09/19 01/09/19 01/09/19 19:21 19:21 19:31 WBC RBC Hgb Hct MCV MCH MCHC RDW Plt Count Neut % (Auto) Lymph % (Auto) [place] % (Auto) Eos % (Auto) Baso % (Auto) Neut # (Auto) Lymph # (Auto) [place] # (Auto) Eos # (Auto) Baso # (Auto) ABG pH ABG pCO2 ABG pO2 ABG HCO3 ABG Total CO2 ABG O2 Saturation ABG Base Excess FiO2 Sodium Potassium Chloride Carbon Dioxide BUN Creatinine Estimated GFR BUN/Creatinine Ratio Glucose Lactate 2.1 Calcium Total Bilirubin AST ALT Alkaline Phosphatase B-Natriuretic Peptide 136 H Total Protein Albumin Globulin Albumin/Globulin Ratio Nasal Screen MRSA (PCR) Influenza A & B (PCR) Negative 01/10/19 01/10/19 01/10/19 00:30 01:11 04:54 WBC 7.8 RBC 4.21 Hgb 12.9 Hct 38.4 MCV 91.2 MCH 30.6 MCHC 33.6 RDW 14.8 Plt Count 209 Neut % (Auto) 95.2 H Lymph % (Auto) 2.9 L [place] % (Auto) 1.8 L Eos % (Auto) 0.0 L Baso % (Auto) 0.1 Neut # (Auto) 7400 H Lymph # (Auto) 200 L [place] # (Auto) 100 Eos # (Auto) 0 Baso # (Auto) 0 ABG pH 7.35 ABG pCO2 50.4 H ABG pO2 66 L ABG HCO3 28 H ABG Total CO2 29 ABG O2 Saturation 91 L ABG Base Excess 2.0 FiO2 35 Sodium Potassium Chloride Carbon Dioxide BUN Creatinine Estimated GFR BUN/Creatinine Ratio Glucose Lactate Calcium Total Bilirubin AST ALT Alkaline Phosphatase B-Natriuretic Peptide Total Protein Albumin Globulin Albumin/Globulin Ratio Nasal Screen MRSA (PCR) Negative for mrsa Influenza A & B (PCR) 01/10/19 04:54 WBC RBC Hgb Hct MCV MCH MCHC RDW Plt Count Neut % (Auto) Lymph % (Auto) [place] % (Auto) Eos % (Auto) Baso % (Auto) Neut # (Auto) Lymph # (Auto) [place] # (Auto) Eos # (Auto) Baso # (Auto) ABG pH ABG pCO2 ABG pO2 ABG HCO3 ABG Total CO2 ABG O2 Saturation ABG Base Excess FiO2 Sodium 140 Potassium 3.4 Chloride 99 Carbon Dioxide 30 BUN 13 Creatinine 0.40 L Estimated GFR > 60.0 BUN/Creatinine Ratio 32.5 H Glucose 246 H Lactate Calcium 9.2 Total Bilirubin 0.3 AST 27 ALT 27 Alkaline Phosphatase 93 B-Natriuretic Peptide Total Protein 6.7 Albumin 3.8 Globulin 2.9 Albumin/Globulin Ratio 1.3 Nasal Screen MRSA (PCR) Influenza A & B (PCR) Assessment & Plan Assessment & Plan narrative: Giovana Simeon is a 73-year-old female with a past medical history significant for COPD with nocturnal oxygen dependence and anxiety and depression who presented for acute shortness of breath admitted for acute on chronic hypoxemic and hypercarbic respiratory failure, acute on chronic COPD exacerbation and aspiration pneumonia. 1. Acute on chronic hypoxemic and hypercarbic respiratory failure, present on admission. Improving. -Patient presented with hypoxemic and hypercarbic respiratory failure and ABG demonstrated acute respiratory acidosis with partial compensation. -Continue supplemental oxygen with 3 L continuous which is patient's baseline oxygen requirement and BiPAP while sleeping. -Will have patient assessed for Trilogy S patient requires nocturnal and daytime volume ventilation. Home BiPAP insufficient due to severity of COPD as primary cause of chronic hypoxemic hypercapnic respiratory failure. 2. Acute on chronic COPD exacerbation, present on admission. Active. -Patient has advanced centrilobular emphysema and COPD with BMI 15.9 and muscle atrophy. -CXR interpreted by me demonstrates COPD with hyperinflation and flattening of the diaphragms without infiltrate. CTA demonstrated centrilobular emphysema with right middle lobe infiltrate suspicious for aspiration pneumonia as below. -Continue supplemental oxygen with 3 L continuous which is patient's baseline oxygen requirement and BiPAP while sleeping as above. -Continue Mucinex 1200 mg twice daily. -Continue methylprednisolone 60 mg every 8 hours. Will titrate down as patient's respiratory status improves. -Continue respiratory therapy evaluation and treatment. Ordered and PEP and CPT. DuoNeb every 4 hr while awake and albuterol nebs every 2 hr as needed for shortness of breath. 3. Aspiration and viral pneumonia, present on admission. Active. -See treatment course as above under COPD exacerbation. -CT angiogram negative for PE but does demonstrate new right-sided infiltrate coupled with possibility of aspiration are suggestive of aspiration pneumonia. -Continue ceftriaxone and Flagyl. -Ordered complete pneumonia workup including: Respiratory viral PCR which is positive for human metapneumovirus. Strep pneumoniae and Legionella urine antigens, pending. Sputum culture, pending. Blood cultures x2, pending. -Ordered speech therapy evaluation and treatment, pending. 4. Chronic laryngitis, present on admission. Stable. -Previously thought to be secondary to oropharyngeal/laryngeal candidiasis but now likely vocal cord dysfunction or some other etiology. -Patient has had laryngitis for approximately 6 months. Patient expresses her thoughts with a whiteboard and will voice some words verbally though is uncomfortable speaking. Her speech difficulty sounds like a vocal cord dysfunction and will need ENT evaluation and ST outpatient. 5. Anxiety and depression, chronic, present on admission. Stable. -Will continue Paxil 20 mg daily after speech eval. 6. Underweight likely secondary to advanced COPD, chronic, present on admission. Presumed stable. -BMI 15.9. Disposition: Likely to discharge to senior living facility versus assisted living facility at [place] in several days depending on improvement in respiratory status.
[2019-01-10 18:25] LABS: Adenovirus Not Detected (Not Detect); Bordetella pertussis Not Detected (Not Detect); Chlamydophila pneumoniae Not Detected (Not Detect); Coronavirus 229E Not Detected (Not Detect); Coronavirus HKU1 Not Detected (Not Detect); Coronavirus NL 63 Not Detected (Not Detect); Coronavirus OC43 Not Detected (Not Detect); Human Metapneumovirus Detected (Not Detect); Human Rhinovirus/Enterovirus Not Detected (Not Detect); Influenza A Not Detected (Not Detect); Influenza B Not Detected (Not Detect); Mycoplasma pneumoniae Not Detected (Not Detect); Parainfluenza Virus 1 Not Detected (Not Detect); Parainfluenza Virus 2 Not Detected (Not Detect); Parainfluenza Virus 3 Not Detected (Not Detect); Parainfluenza Virus 4 Not Detected (Not Detect); Respiratory Syncytial Virus Not Detected (Not Detect)
[2019-01-10] MEDS: LACTATED RINGERS 1,000 ML 65 ML IV (18:45)
[2019-01-10] MEDS: FLUTICASONE 220MCG HFA 120 PUFF INH (19:49)
[2019-01-10 20:18] LABS: HCO3 ABG 30 mmol/L (22-26); Oxygen Saturation ABG 92 % (95-100); PCO2 ABG 46.7 mmHg (35-45); PO2 ABG 64 mmHg (80-100); TCO2 ABG 31 mmol/L (21-31); pH ABG 7.41 (7.35-7.45)
[2019-01-10 20:19] LABS: Fractionated Inspired Oxygen 32
[2019-01-11] VITALS (22 sets, daily range): BP systolic 103–146; BP diastolic 53–82; PULSE 77–103; RESP 10–26; TEMP 24.8–36.6; O2SAT 93–100
--- NOTE | 2019-01-11 | DI.RAD.S_ITS ---
PROCEDURE: XR CHEST 1V INDICATIONS: shortness of breath TECHNIQUE: One view of the chest was acquired. COMPARISON: [facility], CR, XR CHEST 1V, 01/09/2019, 18:59. FINDINGS: Surgical changes and devices: None. Lungs and pleura: Hyperinflated lungs in keeping with chronic obstructive physiology. Scattered scarring/atelectasis. No pleural effusions or pneumothorax. Mediastinum: Mediastinal contours appear normal. Heart size is normal. Bones and chest wall: No suspicious bony lesions. Overlying soft tissues appear unremarkable. Scoliosis and diffuse spondylosis. IMPRESSION: No acute disease Dictated by: Rehan Lion M.D. on 01/11/2019 at 16:11 Approved by: Rehan Lion M.D. on 01/11/2019 at 16:13
[2019-01-11] MEDS: ALBUTEROL/IPRATROPIUM 3 ML AMPUL INH ×6 (02:28→22:17)
[2019-01-11 05:41] LABS: Add Manual Diff / Slide Review NO; Basophils Absolute Auto 0 /uL (0-100); Basophils Percent Auto 0.1 % (0-2); Eosinophils Absolute Auto 0 /uL (0-450); Hematocrit 38.3 % (36-46); Hemoglobin 12.5 g/dL (12.0-16.0); Lymphocytes Absolute Auto 400 /uL (1100-4500); Lymphocytes Percent Auto 2.3 % (25-40); Mean Corpuscular HGB Conc 32.6 % (30-36); Monocytes Absolute Auto 600 /uL (0-900); Monocytes Percent Auto 3.4 % (3-14); Neutrophils Absolute Auto 16400 /uL (1500-7000); Neutrophils Percent Auto 94.2 % (50-75); Platelet Count 222 X10^3/uL (150-400); Red Blood Cell Count 4.17 X10^6/uL (4.0-5.2); Red Cell Distribution Width 14.6 % (11.6-14.8); White Blood Cell Count 17.4 X10^3/uL (4.5-11.0)
[2019-01-11] MEDS: methylPREDNISolone 125 MG/2 ML VIAL 60 MG IV ×3 (06:06→23:21)
[2019-01-11] MEDS: metroNIDAZOLE 500 MG/100 ML PIGGYBACK 100 MG IV ×3 (06:09→23:42)
[2019-01-11 06:12] LABS: Blood Urea Nitrogen 19 mg/dL (7-17); Calcium 9.4 mg/dL (8.4-10.2); Carbon Dioxide 32 mmol/L (22-32); Chloride 102 mmol/L (98-107); Estimated Glomerular Filt Rate > 60.0 mL/min (>60); Glucose 150 mg/dL (80-110); HEMOLYSIS 34 (0-50); Magnesium 1.9 mg/dL (1.6-2.3); Potassium 3.5 mmol/L (3.4-5.1); Sodium 142 mmol/L (137-145)
[2019-01-11 06:27] LABS: Procalcitonin 0.63 ng/mL (<0.5)
[2019-01-11] MEDS: LACTATED RINGERS 1,000 ML 1000 ML IV (10:13)
[2019-01-11] MEDS: ENOXAPARIN 40 MG/0.4 ML SYRINGE SUBCUT (10:13)
--- NOTE | 2019-01-11 12:04 | ST.IPIE ---
Care Team Visit Care Team Role Provider Type Luanne Loving MD Primary Care Provider Physician Specialty: Medical Address: [facility] [address], [place], [address] Email: Rosetta Perez PA-C Family Provider Non-Staff Specialty: Medical Address: [address], [place], [address] Email: Doc Maldonado DO Emergency Provider Physician Specialty: Emergency Medicine Address: [address] [place] [address], [address] Email: [email or web address] Ezequiel Sullivan MD Admit Provider Physician Attending Provider Specialty: Internal Medicine Address: [address] [place] [address], [address] Email: Current Diagnoses Acute and chronic respiratory failure with hypoxia (01/09/19) Past Medical History (Last Reviewed 01/09/19 @ 22:08 by Ezequiel Sullivan MD) Anxiety and depression (Chronic Medical) Expressive aphasia (Chronic Medical) COPD (chronic obstructive pulmonary disease) (Acute Medical) H/O: hysterectomy (Acute Medical) Oral candidiasis (Acute Medical) Asthma (Chronic Medical) Dependence on nocturnal oxygen therapy (Chronic Medical) ST IP Initial Evaulation Report ENROLLMENT NURSE Clinical Swallow Evaluation Start: 01/11/19 11:40 Freq: Status: Active Protocol: Document 01/11/19 11:40 JODIE (Rec: 01/11/19 12:04 JODIE [id number]) Clinical Swallow Evaluation Session Time Visit Start Time 08:50 Visit Stop Time 09:20 Total Visit Minutes 30 Visit Information Visit Number Initial Evaluation Referral Referring Physician Dr. Ramos Reason for Referral Possible Aspiration PNA Setting Assessment Location Acute Care Visit Type Note Type Initial Evaluation Next Note Type Next Note Type Treatment Note Patient Information Identification Type Name ID Card History 73-year-old female with a past medical history significant for COPD with nocturnal oxygen dependence and anxiety and depression who presented for acute shortness of breath admitted for acute on chronic hypoxemic and hypercarbic respiratory failure, acute on chronic COPD exacerbation, and aspiration pneumonia. She is being followed by Respiratory Therapy, who did extract possible aspiration secretions via suction the evening of . The pt reported some difficulty with oral intake including coughing and choking . The pt resides at [facility] and has history of multiple hospitalizations in recent months. She was not seen by Speech Therapy during those previous hospital stays. The pt has chronic laryngitis (since 1 yr, per pt report) and communicates primarily through gestures including head nod/shake for yes/ no and through writing via a whiteboard that is bedside. Subjective Observations The pt as sleeping with blankets covering her face upon ENROLLMENT NURSE's arrival. She aroused to voice and removal of blankets from head and nodded agreement to participate in swallow evaluation. The pt was repositioned to upright in bed . She exhibited weak, wet, and unproductive coughs intermittently prior to oral trials. Evaluation Liquids Trialed Ice Chips Solids Trialed Puree Administration Type Tea Spoon Dependent Feeding Oral Impairment Mildly Impaired Oral Strategies Upright at 90 degrees Double Swallow Controlled Bite/Sip Size Oral Phase Comments Oral peripheral exam was attempted; however, when asked to protrude her tongue, she wrote on the white board It's too dry. After administration of ice chips, the pt was able to participate minimally secondary to generalized weakness. She did move her tongue forward, bilaterally and up and down with slow movements and limited strength and ROM. She produced strained vowel phonation x2 sec with pitch breaks. She is edentulous of upper teeth, does have full upper dentures that were not in place during the evaluation , and has most of her natural lower teeth which are in adequate condition for her age . Trials were limited to 2 ice chips and 1 tsp applesauce for pt safety. Oral Phase: The pt accepted boluses from tsp with slowed but appropriate movements. Swallow trigger appeared WFL with reduced hyolaryngeal elevation and excursion. Bolus formation appeared WFL and no abnormal oral residue was observed in limited trials. Pharyngeal Impairment Severely Impaired Pharyngeal Phase Comments The pt exhibited delayed cough with all trials of ice chip trials and applesauce. Quality of cough was wetter and more frequent following oral trials than coughs produced prior to trials, and the pt began exhibiting wet expiratory wheezing after oral trials. The pt produced 3 swallows with adminitration of 1/2 tsp applesauce. Findings Dysphagia Type Mild-moderate oral and severe pharyngeal dysphagia. Rehabilitation Potential Fair Impressions The pt is at very high risk of aspiration and not safe to resume oral intake at this time. Suspect incomplete closure of airway and pharyngeal clearance secondary to generalized weakness and weakness of swallow musculature. Diet Recommendations Liquids Order NPO Diet Order NPO Medication Recommendations Not Recommended by Mouth Comments Per Nsg, pt has not eaten in 5 days. Initiation of TPN may be warranted. Treatment Plan Placement Recommendations after Director Of [facility] Services Care Facility Discharge Appropriate for Therapy Yes Therapy Recommendations Speech Pathology to re- evaluate this afternoon. Therapy to include ongoing assessment and education, compensatory strategies as needed when pt is safe to return to PO intake, and exercises to improve function as deemed appropriate. Dysphagia Goals The pt will demonstrate swallow function/safety adequate to resume oral intake of least restricted diet to meet her nutrition and hydration needs.
[2019-01-11] MEDS: LACTATED RINGERS 1,000 ML 65 ML IV (13:40)
--- NOTE | 2019-01-11 14:10 | PC.NURSE ---
Rec'd pt in bed resting eyes closed on bipap. Awakens to verbal stimuli. Makes needs known via white board. Mostly oriented. Denies pain. Endorses hunger/thirst. Currently NPO awaiting eval by speech therapist. Noted decreased UOP and notified Dr. Rodriguez. Reported VS, O2 sats, PICCOL[employer] MECH[employer]IC recs. Reported pt breath sounds with increased rhonchi post PICCOL[employer] MECH[employer]IC eval. Reviewed O2 requirements. Orders rec'd for 1000 ML LR Bolus. Post bolus, UOP remains low. Dr. Rodriguez on rounds at 1400. PICCOLO MECHANIC at bedside as well. Assessed pt together. Reviewed current orders, IVF rate, urine output, nutritional status, O2 requirements, lung assessment. Orders received.
--- NOTE | 2019-01-11 14:29 | CM.DPC ---
Addendum entered by Elizabet Britton LPN 01/11/19 14:51: FCC: Kaitlyn has the referral now in case of snf need (appears likely at this point). Pt has been placed on TPN today. LYRIC WRITER is working with pt with ? of aspiration. Idalia/SUMMER ( Not RAL as noted in original note below) confirmed that pt does have a Trilogy at the . Idalia states: She does not use it all the time and she is mostly independent here so she can do as she pleases with this. She says she does not like it. This info is passed on to RT Jaun who will let Julia know so that perhaps she can assist in helping pt to be more comfortable with the device. Idalia does confirm that pt's daughter Fay works at the as a cook a couple times per week. She is faxing over pt's POLST. Says pt is a Full Code and wishes Full Interventions including trial if needed of Ventilator support. Original Note: DCP: continued: Case received and discussed in Team Rounds. RT reports pt is being looked at for possible Trilogy need. Julia/Aylin will be following up with Dr. Rodriguez. PT is ordered but his note is not yet available. OT is not yet ordered. Will anticipate pt will benefit from this to help determine if she can go directly back to her [facility] or if will need snf but unclear if she is ready for this yet. Plan to discuss tomorrow in Team Rounds. Will contact ZEE/Kaitlyn and FAY: Idalia to see which setting is being considered from their standpoint.
--- NOTE | 2019-01-11 14:40 | P.PN_ITS ---
Subjective Date Patient Seen: 01/11/19 Interval history: Patient is a 71 y/o female admitted with acute on chronic respiratory failure. The patient appears to be aspirating secretions. She continues to be short of breath despite bipap and oxygen. She has loud wet rhonchi on exam. She denies any pain. The patient is being treated with steroids, antibiotics, nebs but appears to be making minimal improvement. She reports not feeling any better today. Exam Vital Signs (past 8 hours): - 01/11/19 07:55 01/11/19 08:00 01/11/19 10:36 Temperature 97.0 F L Pulse Rate 95 H 87 Respiratory Rate 20 22 Blood Pressure 146/66 H Pulse Oximetry 100 100 98 01/11/19 10:53 01/11/19 12:00 01/11/19 13:27 Temperature 97.1 F L Pulse Rate 83 Respiratory Rate 16 Blood Pressure 113/63 105/58 L 126/70 Pulse Oximetry 98 Fraction of Inspired Oxygen 0.35 Oxygen Delivery Method BiPAP Oxygen Flow Rate 3 Narrative Exam Narrative: ill appearing female, short of breath, with labored breathing Lungs: diffuse wet rhonchi bilaterally CV: tachy RRR nl Sl S2 Abd: soft/ non tender/ non distended Ext: no edema Objective Labs Result Diagrams: 01/11/19 04:50 01/11/19 04:50 Labs: Laboratory Results - last 24 hr 01/10/19 01/10/19 01/11/19 16:00 19:40 04:50 WBC 17.4 H D RBC 4.17 Hgb 12.5 Hct 38.3 MCV 92.0 MCH 30.0 MCHC 32.6 RDW 14.6 Plt Count 222 Neut % (Auto) 94.2 H Lymph % (Auto) 2.3 L [place] % (Auto) 3.4 Eos % (Auto) 0.0 L Baso % (Auto) 0.1 Neut # (Auto) 63026 H Lymph # (Auto) 400 L [place] # (Auto) 600 Eos # (Auto) 0 Baso # (Auto) 0 ABG pH 7.41 ABG pCO2 46.7 H ABG pO2 64 L ABG HCO3 30 H ABG Total CO2 31 ABG O2 Saturation 92 L ABG Base Excess 5.0 H FiO2 32 Sodium Potassium Chloride Carbon Dioxide BUN Creatinine Estimated GFR BUN/Creatinine Ratio Glucose Calcium Magnesium Procalcitonin Chlamy pneumoniae PCR Not detected Adenovirus (PCR) Not detected B.parapertussis DNA PCR Not detected Coronavirus OC43 (PCR) Not detected Coronavirus HKU1 (PCR) Not detected Coronavirus 229E (PCR) Not detected Coronavirus NL63 (PCR) Not detected Human Metapneumovir PCR Detected H Influenza Type A (PCR) Not detected Influenza Type B (PCR) Not detected M. pneumoniae (PCR) Not detected Parainfluenza 1 (PCR) Not detected Parainfluenza 2 (PCR) Not detected Parainfluenza 3 (PCR) Not detected Parainfluenza 4 (PCR) Not detected RSV (PCR) Not detected Entero/Rhino (PCR) Not detected 01/11/19 01/11/19 04:50 04:50 WBC RBC Hgb Hct MCV MCH MCHC RDW Plt Count Neut % (Auto) Lymph % (Auto) [place] % (Auto) Eos % (Auto) Baso % (Auto) Neut # (Auto) Lymph # (Auto) [place] # (Auto) Eos # (Auto) Baso # (Auto) ABG pH ABG pCO2 ABG pO2 ABG HCO3 ABG Total CO2 ABG O2 Saturation ABG Base Excess FiO2 Sodium 142 Potassium 3.5 Chloride 102 Carbon Dioxide 32 BUN 19 H Creatinine 0.50 L Estimated GFR > 60.0 BUN/Creatinine Ratio 38.0 H Glucose 150 H Calcium 9.4 Magnesium 1.9 Procalcitonin 0.63 H Chlamy pneumoniae PCR Adenovirus (PCR) B.parapertussis DNA PCR Coronavirus OC43 (PCR) Coronavirus HKU1 (PCR) Coronavirus 229E (PCR) Coronavirus NL63 (PCR) Human Metapneumovir PCR Influenza Type A (PCR) Influenza Type B (PCR) M. pneumoniae (PCR) Parainfluenza 1 (PCR) Parainfluenza 2 (PCR) Parainfluenza 3 (PCR) Parainfluenza 4 (PCR) RSV (PCR) Entero/Rhino (PCR) Assessment & Plan (1) Aspiration pneumonia: Problem details: Patient with witnessed aspiration, will switch to levofloxacin plus flagyl to cover atypicals, gram positives, and gram negatives. She has metapneumovirus on swab, but had witnessed here. She is very wet on exam. Current visit: Yes Status: Acute (2) Acute and chronic respiratory failure with hypoxia: Problem details: Acute on Chronic respiratory failure, present on admission. Will continue bipap, steroids, antibiotics, and nebulizers Will check repeat Chest Xray and BNP. Echo in Oct revealed EF of 65%. Current visit: Yes Status: Acute (3) Acute exacerbation of chronic obstructive pulmonary disease (COPD): Problem details: As above, present on admission Current visit: Yes Status: Acute (4) Anxiety and depression: Problem details: Will continue ativan Current visit: No Status: Chronic (5) Expressive aphasia: Problem details: chronic Current visit: No Status: Chronic (6) Community acquired pneumonia: Problem details: Patient presented with a right middle lobe pneumonia but had witnessed aspiration here. She is now NPO, start Levofloxacin and continue flagyl. Current visit: No Status: Acute (7) Other severe protein-calorie malnutrition: Problem details: Patient has not been eating for 5 days. Unable to tolerate tube feeds secondary to need for BIPAP. Will start TPN for now. Current visit: Yes Status: Acute (8) Decreased urine output: Problem details: IV hydration, will follow. Current visit: Yes Status: Acute
--- NOTE | 2019-01-11 14:56 | ST.IPIE ---
Current Diagnoses Unspecified severe protein-calorie malnutrition (01/09/19) Major depressive disorder, single episode, unspecified (01/09/19) Anxiety disorder, unspecified (01/09/19) Pneumonia, unspecified organism (01/09/19) Chronic obstructive pulmonary disease with (acute) exacerbation (01/09/19) Pneumonitis due to inhalation of food and vomit (01/09/19) Acute and chronic respiratory failure with hypoxia (01/09/19) Anuria and oliguria (01/09/19) Aphasia (01/09/19) Past Medical History (Last Reviewed 01/09/19 @ 22:08 by Ezequiel Sullivan MD) Anxiety and depression (Chronic Medical) Will continue ativan Expressive aphasia (Chronic Medical) chronic COPD (chronic obstructive pulmonary disease) (Acute Medical) H/O: hysterectomy (Acute Medical) Oral candidiasis (Acute Medical) Asthma (Chronic Medical) Dependence on nocturnal oxygen therapy (Chronic Medical) ST IP Initial Evaulation Report STUDENT COUNSELOR Clinical Swallow Evaluation Start: 01/11/19 11:40 Freq: Status: Active Protocol: Document 01/11/19 14:30 TLC (Rec: 01/11/19 14:54 TLC [id number]) Clinical Swallow Evaluation Session Time Visit Start Time 14:00 Visit Stop Time 14:20 Total Visit Minutes 20 Visit Information Visit Number [address] Ramos Reason for Referral Possible Aspiration PNA Setting Assessment Location Acute Care Visit Type Note Type Re-Evaluation Next Note Type Next Note Type Treatment Note Patient Information Identification Type Name ID Card Subjective Observations Patient was taken off of bipap by nursing prior to the session. She used her whiteboard to request her upper partials and for her mouth to be cleaned and rinsed out. Observed white coating on tongue which did not come off with toothbrush. Evaluation Liquids Trialed Ice Chips Thin Administration Type Tea Spoon Dependent Feeding Oral Phase Comments Mild-moderate oral phase dysphagia characterized by oral motor weakness and incoordination affecting bolus containment and transport. Pharyngeal Phase Comments Unable to fully assess pharyngeal status without instrumental assessment; however, patient exhibited wet coughing and ronchus breath sounds following 2 trials of water. Patient was not able to cough up any secretions. Trials were discontinued for patient safety. Findings Rehabilitation Potential Fair Impressions Patient remains at very high risk of aspiration. Modifed Barium Swallow Study is recommended once patient's respiratory status improves and overall strength improves. Diet Recommendations Liquids Order NPO Diet Order NPO Medication Recommendations Not Recommended by Mouth Treatment Plan Placement Recommendations after [facility] Care Facility Discharge Appropriate for Therapy Yes Therapy Recommendations Speech Pathology to re- evaluate tomorrow. Therapy to include ongoing assessment and education, compensatory strategies as needed when pt is safe to return to PO intake, and exercises to improve function as deemed appropriate. Dysphagia Goals The pt will demonstrate swallow function/safety adequate to resume oral intake of least restricted diet to meet her nutrition and hydration needs.
[2019-01-11 15:02] LABS: HCO3 ABG 31 mmol/L (22-26); Oxygen Saturation ABG 92 % (95-100); PCO2 ABG 48.1 mmHg (35-45); PO2 ABG 64 mmHg (80-100); TCO2 ABG 33 mmol/L (21-31); pH ABG 7.42 (7.35-7.45)
[2019-01-11 15:03] LABS: Fractionated Inspired Oxygen 0.36
--- NOTE | 2019-01-11 15:15 | CM.DPC ---
DCP Cont: Faxed update on patient to [facility], fax # [phone]. Fax confirmation scanned in. Earnest Gonzalez Vault Keeper
[2019-01-11 15:19] LABS: B Type Natriuretic Peptide < 100 (<100)
--- NOTE | 2019-01-11 16:54 | DI.RAD.S_ITS ---
PROCEDURE: XR CHEST 1V INDICATIONS: PICC Placement TECHNIQUE: One view of the chest was acquired. COMPARISON: [facility], CT, CT ANGIO CHEST PE PROTOCOL, 01/09/2019, 21:10. [facility], CR, XR CHEST 1V, 01/09/2019, 18:59. [facility], CR, XR CHEST 1V, 01/11/2019, 14:26. FINDINGS: Surgical changes and devices: A right-sided PICC line is seen, with the tip overlying the mid superior vena cava, 3-4 cm above the cavoatrial junction. Lungs and pleura: Lungs are clear. No pleural effusions or pneumothorax. Mediastinum: The cardiac contours are within normal limits. The aorta demonstrates calcification and tortuosity. Bones and chest wall: Age-appropriate bony degenerative changes are seen. No suspicious bony lesions. Overlying soft tissues appear unremarkable. IMPRESSION: The tip of the right-sided PICC line overlies the mid to inferior superior vena cava. Dictated by: Joe Andrea M.D. on 01/11/2019 at 16:09 Approved by: Joe Andrea M.D. on 01/11/2019 at 16:10
[2019-01-11 18:13] LABS: Lactate (Lactic Acid) 0.8 mmol/L (0.7-2.1)
[2019-01-11] MEDS: FAT EMULSIONS 50 GM/250 ML EMULSION IV (18:24)
[2019-01-11] MEDS: CALCIUM IV (18:39)
[2019-01-11] MEDS: [UNRECOGNIZED DRUG - OTHER] IV (18:39)
[2019-01-11] MEDS: TRACE ELEMENTS IV (18:39)
[2019-01-11] MEDS: DEXT IV (18:39)
[2019-01-11] MEDS: LYTES IV (18:39)
[2019-01-11] MEDS: MULTIVITAMIN IV (18:39)
[2019-01-11] MEDS: levoFLOXacin 750 MG/150 ML PIGGYBACK 100 MG IV (19:24)
--- NOTE | 2019-01-11 20:55 | PC.NURSE ---
nicolasa note pt on and off bipap. PICC line inserted. TPN started. RT did oral and NT suctioning, noting white patches in throat. Spoke to Dr. Rodriguez about white patches, fingerstick glucose, abx, IVF rates, low urine output. New orders received.
[2019-01-11] MEDS: FLUCONAZOLE 200 MG/100 ML PIGGYBACK 50 MG IV (21:32)
[2019-01-11] MEDS: LACTATED RINGERS 1,000 ML 84 ML IV (23:21)
[2019-01-11] MEDS: INSULIN ASPART 100 UNIT/ML INSULN PEN SUBCUT (23:49)
[2019-01-12] VITALS (24 sets, daily range): BP systolic 126–155; BP diastolic 67–87; PULSE 67–103; RESP 1–30; TEMP 1–36.6; O2SAT 93–98; BMI 16.9
[2019-01-12] MEDS: ALBUTEROL/IPRATROPIUM 3 ML AMPUL INH ×6 (02:15→23:14)
--- NOTE | 2019-01-12 02:43 | RT ---
pt refuses oral and nt sx attempts. pt refused to wear bipap for more than ah hour tonight. finally convinced pt to wear bipap this morning.
[2019-01-12 05:05] LABS: Add Manual Diff / Slide Review NO; Basophils Absolute Auto 0 /uL (0-100); Basophils Percent Auto 0.1 % (0-2); Eosinophils Absolute Auto 0 /uL (0-450); Hematocrit 34.6 % (36-46); Hemoglobin 11.6 g/dL (12.0-16.0); Lymphocytes Absolute Auto 300 /uL (1100-4500); Lymphocytes Percent Auto 1.7 % (25-40); Mean Corpuscular HGB Conc 33.6 % (30-36); Mean Corpuscular Hemoglobin 30.7 PG (26-34); Mean Corpuscular Volume 91.5 fL (80-100); Monocytes Absolute Auto 400 /uL (0-900); Monocytes Percent Auto 2.8 % (3-14); Neutrophils Absolute Auto 14700 /uL (1500-7000); Neutrophils Percent Auto 95.4 % (50-75); Platelet Count 215 X10^3/uL (150-400); Red Blood Cell Count 3.78 X10^6/uL (4.0-5.2); Red Cell Distribution Width 15.2 % (11.6-14.8); White Blood Cell Count 15.4 X10^3/uL (4.5-11.0)
[2019-01-12 05:25] LABS: Blood Urea Nitrogen 20 mg/dL (7-17); Calcium 8.8 mg/dL (8.4-10.2); Carbon Dioxide 32 mmol/L (22-32); Chloride 100 mmol/L (98-107); Estimated Glomerular Filt Rate > 60.0 mL/min (>60); Glucose 223 mg/dL (80-110); HEMOLYSIS 34 (0-50); Potassium 3.4 mmol/L (3.4-5.1); Sodium 138 mmol/L (137-145)
[2019-01-12] MEDS: methylPREDNISolone 125 MG/2 ML VIAL 60 MG IV (06:09)
[2019-01-12] MEDS: INSULIN ASPART 100 UNIT/ML INSULN PEN SUBCUT ×3 (06:15→17:47)
[2019-01-12] MEDS: metroNIDAZOLE 500 MG/100 ML PIGGYBACK 100 MG IV ×3 (06:16→23:37)
[2019-01-12] MEDS: ENOXAPARIN 40 MG/0.4 ML SYRINGE SUBCUT (07:34)
--- NOTE | 2019-01-12 09:58 | PC.NURSE ---
Belongings: Patient's daughter, Kacey, took home all of patient's rings on 01/10.
--- NOTE | 2019-01-12 09:58 | PC.NURSE ---
Rec'd pt in bed resting eyes closed with RR 19 HR 70s, SR. Approx 0740 pt awakened and moaning c/o throat pain and dry mouth. Requesting something to drink and reporting hunger. Head-to-toe assessment completed. Provided oral swab with mouth moisturizer. Pt became increasingly tachypneic to 28 and HR went from 70s-90s and SPO2 decreased to 93%. Pt requesting more liters of oxygen. Assisted pt to upright position and instructed to cough as pt has audibly wet breath sounds. Pt is unable to expectorate. Placed back on bipap 35% FIO2 12/8 at 0750. Called to RT to administer sched treatments. Post treatment pt is resting comfortably with eyes closed on bipap. HR 60s, RR 18-20, SPO2 94-98%. Call light in easy reach. Bed alarm in use.
--- NOTE | 2019-01-12 12:19 | P.PN_ITS ---
Subjective Date Patient Seen: 01/12/19 Interval history: Ill appearing 73 y/o female admitted for respiratory failure secondary to COPD exacerbation, metapneumovirus, and likely aspiration pneumonia. the patient is unable to pass a swallow evaluation. She appears to aspirate saliva/liquid with swallowing. Her mouth is really dry, she has thick white plaques in her mouth.\ She reports she still feels short of breath and has made no major improvement. She is dependent on BIpap at this time. Urine output has improved with hydration Exam Vital Signs (past 8 hours): - 01/12/19 07:12 01/12/19 07:50 01/12/19 08:18 Temperature 97.1 F L Pulse Rate 93 H 74 Respiratory Rate 28 H 23 Blood Pressure 149/67 H 155/87 H Pulse Oximetry 98 97 01/12/19 09:00 01/12/19 09:10 01/12/19 09:16 Temperature Pulse Rate 71 68 Respiratory Rate 20 Blood Pressure 155/87 H Pulse Oximetry 98 98 01/12/19 11:24 01/12/19 11:30 Temperature Pulse Rate 78 Respiratory Rate 22 Blood Pressure 155/87 H Pulse Oximetry 97 Fraction of Inspired Oxygen 0.35 Oxygen Delivery Method BiPAP Oxygen Flow Rate 3 Narrative Exam Narrative: Ill appearing female Oropharynx: thick white exudate on the posterior pharynx Lungs: decreased breath sounds with scattered rhonchi in the bases CV: RRR nl S1S2 Abd: soft/ non tender/ non distended Ext: no edema Objective Labs Result Diagrams: 01/12/19 04:47 01/12/19 04:47 Labs: Laboratory Results - last 24 hr 01/11/19 01/11/19 01/11/19 04:37 14:47 17:35 WBC RBC Hgb Hct MCV MCH MCHC RDW Plt Count Neut % (Auto) Lymph % (Auto) [place] % (Auto) Eos % (Auto) Baso % (Auto) Neut # (Auto) Lymph # (Auto) [place] # (Auto) Eos # (Auto) Baso # (Auto) ABG pH 7.42 ABG pCO2 48.1 H ABG pO2 64 L ABG HCO3 31 H ABG Total CO2 33 H ABG O2 Saturation 92 L ABG Base Excess 7.0 H FiO2 0.36 Sodium Potassium Chloride Carbon Dioxide BUN Creatinine Estimated GFR BUN/Creatinine Ratio Glucose Lactate 0.8 Calcium B-Natriuretic Peptide < 100 01/12/19 01/12/19 04:47 04:47 WBC 15.4 H RBC 3.78 L Hgb 11.6 L Hct 34.6 L MCV 91.5 MCH 30.7 MCHC 33.6 RDW 15.2 H Plt Count 215 Neut % (Auto) 95.4 H Lymph % (Auto) 1.7 L [place] % (Auto) 2.8 L Eos % (Auto) 0.0 L Baso % (Auto) 0.1 Neut # (Auto) 83277 H Lymph # (Auto) 300 L [place] # (Auto) 400 Eos # (Auto) 0 Baso # (Auto) 0 ABG pH ABG pCO2 ABG pO2 ABG HCO3 ABG Total CO2 ABG O2 Saturation ABG Base Excess FiO2 Sodium 138 Potassium 3.4 Chloride 100 Carbon Dioxide 32 BUN 20 H Creatinine 0.40 L Estimated GFR > 60.0 BUN/Creatinine Ratio 50.0 H Glucose 223 H Lactate Calcium 8.8 B-Natriuretic Peptide Assessment & Plan (1) Aspiration pneumonia: Problem details: Patient with witnessed aspiration, will switch to levofloxacin plus flagyl to cover atypicals, gram positives, and gram negatives. She has metapneumovirus on swab, but had witnessed aspiration here. She is very wet on exam. Will continue IV antibiotics at this time. Current visit: Yes Status: Acute (2) Acute and chronic respiratory failure with hypoxia: Problem details: Acute on Chronic respiratory failure, present on admission. Will continue bipap, steroids, antibiotics, and nebulizers Will check repeat Chest Xray and BNP. Echo in Oct revealed EF of 65%. Will taper steroids given hyperglycemia, continue bipap for now. No evidence of CHF Current visit: Yes Status: Acute (3) Acute exacerbation of chronic obstructive pulmonary disease (COPD): Problem details: As above, present on admission Current visit: Yes Status: Acute (4) Other severe protein-calorie malnutrition: Problem details: Patient has not been eating for 5 days. Unable to tolerate tube feeds secondary to need for BIPAP. Will start TPN for now. Will continue Current visit: Yes Status: Acute (5) Decreased urine output: Problem details: IV hydration, will follow. Current visit: Yes Status: Acute (6) Anxiety and depression: Problem details: Will continue ativan Current visit: No Status: Chronic (7) Oral thrush: Problem details: Patient on diflucan for possible yeast esophagitis. Will try nystatin swish and spit for oral thrush Current visit: Yes Status: Acute (8) Hyperglycemia: Problem details: Hyperglycemia, likely exacerbated by steroids. Will taper steroids to 40 mg IV twice daily. Will increase insulin in TPN and continue correctional insulin Current visit: Yes Status: Acute Assessment & Plan narrative: Patient is still very ill and will need ongoing ICU care.
[2019-01-12] MEDS: LACTATED RINGERS 1,000 ML 84 ML IV (13:47)
[2019-01-12] MEDS: NYSTATIN SUSP 500,000 UNIT/5 ML UDC 500000 UNIT PO ×2 (13:51→16:46)
[2019-01-12 14:04] LABS: Anti-Streptolysin O Antibody < 50 IU/mL (< 200)
[2019-01-12 14:41] LABS: Hemoglobin A1C% w Est Avg Glu 5.5 % (4.0-6.0)
--- NOTE | 2019-01-12 14:45 | PC.NURSE ---
Addendum entered by Anali Marvin R.N. 01/12/19 15:13: add-UOP improved, 650mls out this shift. Original Note: Am shift 11-3 Pt remains on bipap, Fio2 35%, Reports improved Resp effort, but continued discomfort with oral care/dry mouth. Nystatin swish and spit ordered. Pt removed bipap during visit with family, with very weak cough/expectorant effort. Spo2 92-96% on 3L NC. Speech into see Pt, not ready to advance to a diet at this time. IVF and TPN infusing at 84 mls/hr. UOP
--- NOTE | 2019-01-12 16:07 | ST.IPDYTX ---
Care Team Visit Care Team Role Provider Type Luanne Loving MD Primary Care Provider Physician Specialty: Medical Address: [address], [place], [address] Email: Rosetta Perez PA-C Family Provider Non-Staff Specialty: Medical Address: [address], [place], [address] Email: Doc Maldonado DO Emergency Provider Physician Specialty: Emergency Medicine Address: [address] [place] [address], [id number] Email: [email or web address] Ezequiel Sullivan MD Admit Provider Physician Attending Provider Specialty: Internal Medicine Address: [address] [place] [address], [id number] Email: STAFF DEVELOPMENT COORDINATOR RN Dysphagia Treatment STAFF DEVELOPMENT COORDINATOR RN Dysphagia Treatment Start: 01/11/19 11:40 Freq: Status: Active Protocol: Document 01/12/19 14:27 JODIE (Rec: 01/12/19 14:29 JODIE [id number]) Dysphagia Treatment Session Time Visit Start Time 13:45 Visit Stop Time 14:15 Total Visit Minutes 30 Setting Assessment Location Acute Care Visit Type Note Type Treatment Note Next Note Type Next Note Type Treatment Note Patient Information Subjective Observations The pt was awake in bed with daughter and 2 granddaughters bedside upon STAFF DEVELOPMENT COORDINATOR RN's arrival. Daughter stated she felt the pt has been aspirating saliva and oral intake for a while now. Family left as the Clinician prepared to enter the room and asked questions about alternative means of nutrition/hydration. Discussed current use of TPN, difficulty of NG tube with BiPap use, and possible NG tube use dependent on pt's medical stability, MD recommendations, and pt's wishes. Family verbalized understanding. The pt is currently being treated for oral and pharyngeal thrush. She was more alert today than when seen yesterday and was agreeable to further assessment of swallow. She communicated effectively in writing on white board, asking how this might have happened and reporting a history of pneumonia 2x/yr until she was 20 years old. She was offered use of a communication board but declined, indicating a preference to use the whiteboard and pointing/ gestures. She indicated she felt she was communicating effectively. In reference to information obtained yesterday , the pt confirmed she has been largely aphonic for 1 year and did not know what caused this. Treatment Liquids Trialed [place] Administration Type Tea Spoon Oral Strategies Upright at 90 degrees Double Swallow Pharyngeal Strategies Sitting Upright (90 deg) Double Swallow Small Bites and Sips Treatment Activities Limited oral motor assessment performed. Significant lingual weakness observed; ROM was reduced but WFL, and coordination also WFL. Pt was able to smile and pucker lips, with mild-moderate weakness. She performed volitional swallows, which were audible and moderately effortful. Assessed pt's swallow with 2 tsp NTL only. Pt consumed with multiple swallows each and continued with wet cough and audible rhonchi breath sounds. Aspiration is highly suspected but cannot be fully determined without instrumental evaluation, which is recommended when the pt is able to tolerate. Trials were discontinued for pt safety. Pt was educated of results, high risk of ongoing aspiration, and recommendation for continued NPO status. Recommend oral trials be held until the pt's pulmonary status stabilizes and she has regained some strength so as not to risk further compromise of pulmonary function. At that time, MBSS will likely be the most appropriate method of swallow assessment. Assessment Rehab Potential Fair Assessment of Improvement The pt was much more alert today than yesterday and able to communicate effectively with use of gestures, facial expressions, and writing on a white board. She exhibits appropriate language skills but continues to be aphonic. Swallow function remains severely impaired and she is not safe to resume oral intake . Recommend continued NPO status. Speech Pathology will continue to follow the pt. MBSS evaluation will likely be necessary when the pt is able to tolerate. Diet Recommendations Liquids Order NPO Diet Order NPO/Alternative Means of Nutrition/Hydration Medication Recommendations Not Recommended by Mouth Treatment Plan Placement Recommendation after Discharge Supervisor Policy Change [facility] Appropriate for Continued Therapy Yes Therapy Recommendations Ongoing assessment and pt/ family education Dysphagia Goals The pt will demonstrate swallow function/safety adequate to resume oral intake of least restricted diet to meet her nutrition and hydration needs.
[2019-01-12] MEDS: FAT EMULSIONS 50 GM/250 ML EMULSION IV (17:45)
[2019-01-12] MEDS: LYTES IV (17:46)
[2019-01-12] MEDS: DEXT IV (17:46)
[2019-01-12] MEDS: CALCIUM IV (17:46)
[2019-01-12] MEDS: [UNRECOGNIZED DRUG - OTHER] IV (17:46)
[2019-01-12] MEDS: MULTIVITAMIN IV (17:46)
[2019-01-12] MEDS: TRACE ELEMENTS IV (17:46)
[2019-01-12] MEDS: LORazepam 2 MG/ML SYRINGE 0.5 MG IV (19:16)
[2019-01-12] MEDS: levoFLOXacin 750 MG/150 ML PIGGYBACK 100 MG IV (19:16)
--- NOTE | 2019-01-12 19:51 | PC.NURSE ---
Addendum entered by Susan Carrizales R.N. 01/12/19 20:29: 2015 - [employer], [place], notified of daughter's concern for increased facial puffiness. Reviewed IVF, urinary output, lab results, notified of episode SOB, increased HR, Reviewed current VS. Original Note: 1900 - Pt c/o increased SOB, HR increasing up to low 100's. RT called for breathing TX. Ativan given. Bi-pap mask replaced. Pt had been off Bi-pap for almost 2 hours per her request. Sats 96%. Pt reports feeling relief with above interventions. Pt's daughter states that she feels the patient's face in puffy as a change from when she had seen her earlier in the day. Reviewing I and O, RX, monitor.
[2019-01-12] MEDS: FLUCONAZOLE 200 MG/100 ML PIGGYBACK 50 MG IV (21:00)
[2019-01-12] MEDS: INSULIN GLARGINE 100 UNIT/ML 3ML PEN 10 UNIT SUBCUT (21:03)
[2019-01-12] MEDS: MORPHINE 2 MG/ML INJ 1 MG IV (23:45)
[2019-01-13] VITALS (17 sets, daily range): BP systolic 118–160; BP diastolic 71–84; PULSE 78–118; RESP 10–25; TEMP 29.3–36.9; O2SAT 90–97
[2019-01-13] MEDS: INSULIN ASPART 100 UNIT/ML INSULN PEN SUBCUT ×4 (00:15→18:20)
[2019-01-13] MEDS: LORazepam 2 MG/ML SYRINGE 0.5 MG IV ×2 (00:51→19:37)
[2019-01-13] MEDS: ALBUTEROL/IPRATROPIUM 3 ML AMPUL INH ×6 (02:51→23:29)
[2019-01-13] MEDS: LACTATED RINGERS 1,000 ML 84 ML IV ×2 (04:13→18:13)
[2019-01-13 05:12] LABS: Add Manual Diff / Slide Review NO; Basophils Absolute Auto 0 /uL (0-100); Eosinophils Absolute Auto 0 /uL (0-450); Hematocrit 35.7 % (36-46); Lymphocytes Absolute Auto 200 /uL (1100-4500); Lymphocytes Percent Auto 1.8 % (25-40); Mean Corpuscular HGB Conc 33.7 % (30-36); Mean Corpuscular Hemoglobin 30.8 PG (26-34); Mean Corpuscular Volume 91.3 fL (80-100); Monocytes Absolute Auto 600 /uL (0-900); Monocytes Percent Auto 4.5 % (3-14); Neutrophils Absolute Auto 11900 /uL (1500-7000); Neutrophils Percent Auto 93.7 % (50-75); Platelet Count 218 X10^3/uL (150-400); Red Blood Cell Count 3.91 X10^6/uL (4.0-5.2); Red Cell Distribution Width 14.8 % (11.6-14.8); White Blood Cell Count 12.7 X10^3/uL (4.5-11.0)
[2019-01-13 05:17] LABS: Alanine Aminotransferase 32 IU/L (9-52); Albumin 2.9 g/dL (3.5-5.0); Albumin Globulin Ratio 1.1 (1.0-2.8); Alkaline Phosphatase 56 U/L (38-126); Aspartate Aminotransferase 20 IU/L (14-36); Bilirubin Total 0.2 mg/dL (0.2-1.3); Blood Urea Nitrogen 20 mg/dL (7-17); Calcium 8.5 mg/dL (8.4-10.2); Carbon Dioxide 34 mmol/L (22-32); Chloride 95 mmol/L (98-107); Estimated Glomerular Filt Rate > 60.0 mL/min (>60); Globulin 2.6 g/dL (1.7-4.1); Glucose 294 mg/dL (80-110); HEMOLYSIS < 15 (0-50); Potassium 3.6 mmol/L (3.4-5.1); Sodium 135 mmol/L (137-145); Total Protein 5.5 g/dL (6.3-8.2)
[2019-01-13] MEDS: metroNIDAZOLE 500 MG/100 ML PIGGYBACK 100 MG IV ×3 (06:15→22:52)
[2019-01-13] MEDS: ENOXAPARIN 40 MG/0.4 ML SYRINGE SUBCUT (09:31)
[2019-01-13] MEDS: INSULIN GLARGINE 100 UNIT/ML 3ML PEN 8 UNIT SUBCUT ×2 (09:31→20:28)
[2019-01-13] MEDS: NYSTATIN SUSP 500,000 UNIT/5 ML UDC 500000 UNIT PO ×4 (09:32→20:28)
[2019-01-13] MEDS: BISACODYL 10 MG SUPP PR (09:33)
--- NOTE | 2019-01-13 10:10 | PC.NURSE ---
Addendum entered by Corazon Gunderson R.N. 01/13/19 14:38: MET WITH DAUGHTERKEYLA- LENGTHY DISCUSSION R/T COURSE OF TREATMENT - ORDERS RECEIVED FOR DNR/DNI AT THIS TIME Original Note: Addendum entered by Corazon Gunderson R.N. 01/13/19 11:03: med small brown formed stool per bedpan Original Note: Addendum entered by Corazon Gunderson R.N. 01/13/19 10:41: small brown smear was all the results from earlier administrated suppository Original Note: Addendum entered by Corazon Gunderson R.N. 01/13/19 10:20: update to daughter he, via telephone call - she plans to visit pt approx 12 today Original Note: pt bathed and turned - she indicated she was willing to participate, removed bipap and placed on 3l nc per her request. lungs diminished with moist cough spo2 93% and slight tachycardia noted - suppository given as no recorded bm since prior to arrival- tpn continues as well as ivf. skin is intact and shields draining clear yellow urine. after bath she declined to return to bipap assistance - preently rr 24 and spo2 93% turn schedule initiated
--- NOTE | 2019-01-13 13:56 | CM.DPC ---
Addendum entered by Twyla Mcclain R.N. 01/13/19 14:38: Dr. Ramos was able to speak to patient's daughter regarding code status. She is now DNR, limited interventions, not yet comfort care. Dr. Ramos will have this conversation with her at a later time. Confirmed with [facility], in case subject arises, they do take patients on hospice. Original Note: DCP Cont: Discussed patient at team rounds. Patient is not improving, according to respiratory therapist. Stated that she has been on BIPAP for about 5 days. Patient is full code at this time. Daughter is here now. Dr. Ramos will be having a discussion about her code status. Daughter will be updating some information regarding POA notary. P: DCP to continue to follow closely. Will be available to offer any available resources that may to be needed. Will collaborate with Dr. Ramos after discussion with daughter. Twyla Mcclain RN/Clinical Data Coordinator
--- NOTE | 2019-01-13 14:24 | PM.PN.1 ---
Subjective Date Patient Seen: 01/13/19 Interval history: Giovana Simeon is a 73-year-old female with a past medical history significant for COPD with nocturnal oxygen dependence and anxiety and depression who presented for acute shortness of breath admitted for acute on chronic hypoxemic and hypercarbic respiratory failure, acute on chronic COPD exacerbation, and aspiration pneumonia. Patient is resting in bed comfortably. She denies pain. Her daughter Fay is present. We were able to have a goals of care discussion today. I informed the patient and her daughter that I was able to discuss her case with a trust manager assistant at [facility], Dr. Brianna Fragoso, who was able to review patient's films and she recommended continued BiPAP with comfort measures only as she has end-stage emphysema and is not a candidate for intubation as she would never be able to come off ventilator and if she made it through acute illness would be trached and vent dependent. We discussed intubation as the patient is full code and she continues to be BiPAP dependent without improvement or progress. I informed the patient that the likelihood of her being extubated once intubated is highly unlikely and she would then be ventilator dependent and need tracheostomy and would be at a LTAC indefinitely if she recovers from acute illness. The patient and her daughter were quite emotional and the patient was able to tell me that she does not want to be intubated or have CPR. She has changed her code status to DNR/DNI with limited interventions including BiPAP/trilogy and IV antibiotics. Patient is leaning towards comfort care if she does not continue to make any progression over the next several days. Exam Vital Signs (past 8 hours): - 01/13/19 07:31 01/13/19 07:33 01/13/19 08:06 Temperature 97.8 F Pulse Rate 79 Respiratory Rate 14 Blood Pressure 137/81 137/81 Pulse Oximetry 97 96 01/13/19 10:45 01/13/19 11:00 01/13/19 11:01 Temperature Pulse Rate 104 H Respiratory Rate 17 Blood Pressure 135/71 135/71 Pulse Oximetry 95 97 01/13/19 12:54 Temperature Pulse Rate Respiratory Rate Blood Pressure 118/73 Pulse Oximetry Fraction of Inspired Oxygen 35 Oxygen Delivery Method BiPAP Oxygen Flow Rate 35 Narrative Exam Narrative: General: Elderly female lying in bed on BiPAP, in no acute distress, unable to talk and using white board. HEENT: Normocephalic, atraumatic. External ears without defect. Pupils equal, round, and reactive to light. Anicteric sclerae, moist conjunctivae, and no lid lag. Neck: Supple with full range of motion. No lymphadenopathy or thyromegaly. Cardiovascular: Regular rate and rhythm without murmurs, rubs, or gallops appreciated. Pulmonary: Diminished throughout with very little air movement and scattered rhonchi. No crackles. Abdomen: Soft, scaphoid, bowel sounds present, nontender, nondistended. No hepatosplenomegaly or masses appreciated. Extremities: No clubbing, cyanosis, or edema. Skin: Normal temperature, turgor, and texture; no rash, ulcers, or subcutaneous nodules appreciated. Neurological: Cranial nerves grossly intact. Objective Labs Result Diagrams: 01/13/19 04:40 01/13/19 04:40 Labs: Laboratory Results - last 24 hr 01/12/19 01/13/19 01/13/19 14:15 04:40 04:40 WBC 12.7 H RBC 3.91 L Hgb 12.0 Hct 35.7 L MCV 91.3 MCH 30.8 MCHC 33.7 RDW 14.8 Plt Count 218 Neut % (Auto) 93.7 H Lymph % (Auto) 1.8 L [place] % (Auto) 4.5 Eos % (Auto) 0.0 L Baso % (Auto) 0.0 Neut # (Auto) 11624 H Lymph # (Auto) 200 L [place] # (Auto) 600 Eos # (Auto) 0 Baso # (Auto) 0 Sodium 135 L Potassium 3.6 Chloride 95 L Carbon Dioxide 34 H BUN 20 H Creatinine 0.40 L Estimated GFR > 60.0 BUN/Creatinine Ratio 50.0 H Glucose 294 H Hemoglobin A1c 5.5 Calcium 8.5 Total Bilirubin 0.2 AST 20 ALT 32 Alkaline Phosphatase 56 Total Protein 5.5 L Albumin 2.9 L Globulin 2.6 Albumin/Globulin Ratio 1.1 Assessment & Plan Assessment & Plan narrative: Giovana Simeon is a 73-year-old female with a past medical history significant for COPD with nocturnal oxygen dependence and anxiety and depression who presented for acute shortness of breath admitted for acute on chronic hypoxemic and hypercarbic respiratory failure, acute on chronic COPD exacerbation and aspiration pneumonia. 1. Acute on chronic hypoxemic and hypercarbic respiratory failure, present on admission. Active. -Patient presented with hypoxemic and hypercarbic respiratory failure and ABG demonstrated acute respiratory acidosis with partial compensation. -Continue BiPAP/triology as much as tolerated and supplemental oxygen when off BiPAP/triology briefly. Not weaning of trilogy or BiPAP readily. -Discussed her case with a trust manager assistant at [facility], Dr. Brianna Fragoso, who was able to review patient's films and recommended continued BiPAP with comfort measures only as she has end-stage emphysema and is not a candidate for intubation as she would never be able to come off ventilator and if she made it through acute illness would be trached and vent dependent. 2. Acute on chronic end stage emphysema withexacerbation, present on admission. Active. -Patient has advanced centrilobular emphysema and COPD with BMI 15.9 and muscle atrophy. -CXR interpreted by me demonstrates COPD with hyperinflation and flattening of the diaphragms without infiltrate. CTA demonstrated centrilobular emphysema with right middle lobe infiltrate suspicious for aspiration pneumonia as below. -Continue BiPAP/triology as much as tolerated and supplemental oxygen when of BiPAP/triology briefly, as above. -Continue Mucinex 1200 mg twice daily. -Continue methylprednisolone 40 mg every 12 hours. Will titrate down as patient's respiratory status improves. -Continue respiratory therapy evaluation and treatment. DuoNeb every 4 hr while awake and albuterol nebs every 2 hr as needed for shortness of breath. 3. Aspiration and viral pneumonia, present on admission. Active. -See treatment course as above under COPD exacerbation. -CT angiogram negative for PE but does demonstrate new right-sided infiltrate coupled with possibility of aspiration are suggestive of aspiration pneumonia. -Continue levofloxacin and Flagyl. -Ordered complete pneumonia workup including: Respiratory viral PCR which is positive for human metapneumovirus. Strep pneumoniae and Legionella urine antigens, pending. Sputum culture ordered and not collected as cough is not productive. Blood cultures x2 have no growth to date. -Ordered speech therapy evaluation and treatment, pending. 4. Chronic laryngitis and dysphagia with aspiration, present on admission. Active. -Possibly secondary to chronic inhaled steroids per pulmonology versus vocal cord dysfunction or some other etiology. -Patient has had laryngitis for approximately 6 months. Patient expresses her thoughts with a white board and will voice some words verbally though is uncomfortable speaking. Her speech difficulty sounds like a vocal cord dysfunction. Now unable to swallow. 5. Oral and possibly tracheobroncheal candidiasis, present on admission. Active. -Possibly contributing to dysphagia and vocal cord dysfunction. -Continue diflucan and nystatin swish and swallow. 6. Underweight secondary to advanced end stage emphysema, chronic, present on admission. Presumed stable. -Initial BMI 15.9. -Started TPN for nutrition with high risk of fungemia in a patient with thrush and likely tomasz tracheobronchitis and severely immunocompromised due to age and end stage emphysema. Disposition: Patient status tenuous and leaning toward comfort care if not making significant strides in next several days with treatment.
[2019-01-13] MEDS: MORPHINE 2 MG/ML INJ 1 MG IV ×2 (14:49→20:27)
--- NOTE | 2019-01-13 17:34 | SLP.IPNOTE ---
Pt has been placed on Hospice care. ST will discharge at this time.
[2019-01-13] MEDS: FAT EMULSIONS 50 GM/250 ML EMULSION IV (18:13)
[2019-01-13] MEDS: DEXT IV (18:13)
[2019-01-13] MEDS: CALCIUM IV (18:13)
[2019-01-13] MEDS: LYTES IV (18:13)
[2019-01-13] MEDS: [UNRECOGNIZED DRUG - OTHER] IV (18:13)
[2019-01-13] MEDS: TRACE ELEMENTS IV (18:13)
[2019-01-13] MEDS: MULTIVITAMIN IV (18:13)
[2019-01-13] MEDS: levoFLOXacin 750 MG/150 ML PIGGYBACK 100 MG IV (19:01)
[2019-01-13] MEDS: FLUCONAZOLE 200 MG/100 ML PIGGYBACK 50 MG IV (20:29)
[2019-01-14] VITALS (20 sets, daily range): BP systolic 120–168; BP diastolic 64–93; PULSE 85–115; RESP 15–21; TEMP 35.8–36.7; O2SAT 92–97
[2019-01-14] MEDS: INSULIN ASPART 100 UNIT/ML INSULN PEN SUBCUT ×4 (00:29→17:50)
[2019-01-14] MEDS: LORazepam 2 MG/ML SYRINGE 0.5 MG IV ×2 (00:31→19:22)
[2019-01-14] MEDS: MORPHINE 2 MG/ML INJ 1 MG IV ×3 (01:53→12:46)
[2019-01-14] MEDS: ALBUTEROL/IPRATROPIUM 3 ML AMPUL INH ×6 (03:27→23:17)
[2019-01-14 05:12] LABS: Hematocrit 36.8 % (36-46); Hemoglobin 12.3 g/dL (12.0-16.0); Mean Corpuscular HGB Conc 33.3 % (30-36); Mean Corpuscular Hemoglobin 30.6 PG (26-34); Mean Corpuscular Volume 91.8 fL (80-100); Platelet Count 206 X10^3/uL (150-400); Red Blood Cell Count 4.01 X10^6/uL (4.0-5.2); Red Cell Distribution Width 14.9 % (11.6-14.8); White Blood Cell Count 10.8 X10^3/uL (4.5-11.0)
[2019-01-14 05:16] LABS: Add Manual Diff / Slide Review YES
[2019-01-14] MEDS: metroNIDAZOLE 500 MG/100 ML PIGGYBACK 100 MG IV ×3 (05:52→22:40)
[2019-01-14 06:08] LABS: Procalcitonin < 0.05 ng/mL (<0.5)
--- NOTE | 2019-01-14 06:08 | PC.NURSE ---
Patient wore Trilogy throughout night, did require IV Ativan and morphine prn in order to tolerate it, c/o pain to bridge of nose, duoderm in place, SpO2 89-97% RR 14-24, breath sounds diminished on Lt, clear to coarse on Rt. TPN, lipids, LR, and Abx infusing as ordered.
[2019-01-14 06:45] LABS: Neutrophils Absolute Manual 10368 /uL (3000-5900); Total Cells Counted 100
[2019-01-14 06:47] LABS: Anisocytosis 1+; Poikilocytosis 1+; Toxic Vacuolation Present
[2019-01-14 07:09] LABS: Alanine Aminotransferase 40 IU/L (9-52); Albumin Globulin Ratio 1.2 (1.0-2.8); Alkaline Phosphatase 58 U/L (38-126); Aspartate Aminotransferase 35 IU/L (14-36); BUN Creatinine Ratio 52.5 (6-22); Bilirubin Total 0.2 mg/dL (0.2-1.3); Blood Urea Nitrogen 21 mg/dL (7-17); Calcium 8.9 mg/dL (8.4-10.2); Carbon Dioxide 33 mmol/L (22-32); Chloride 96 mmol/L (98-107); Estimated Glomerular Filt Rate > 60.0 mL/min (>60); Globulin 2.5 g/dL (1.7-4.1); Glucose 280 mg/dL (80-110); HEMOLYSIS 17 (0-50); Magnesium 1.8 mg/dL (1.6-2.3); Potassium 4.3 mmol/L (3.4-5.1); Sodium 136 mmol/L (137-145); Total Protein 5.5 g/dL (6.3-8.2)
[2019-01-14] MEDS: INSULIN GLARGINE 100 UNIT/ML 3ML PEN 15 UNIT SUBCUT ×2 (08:06→20:24)
[2019-01-14] MEDS: ENOXAPARIN 40 MG/0.4 ML SYRINGE SUBCUT (08:06)
[2019-01-14] MEDS: NYSTATIN SUSP 500,000 UNIT/5 ML UDC 500000 UNIT PO ×4 (08:06→20:23)
[2019-01-14] MEDS: BUDESONIDE 120 PUFF/DEVICE INHALER INH ×2 (10:34)
[2019-01-14] MEDS: LACTATED RINGERS 1,000 ML 84 ML IV (11:35)
--- NOTE | 2019-01-14 14:10 | PC.NURSE ---
PT REQUESTED HER O2 TO BE TURNED UP TO 4L - THIS WAS DONE PER PT REQUEST
--- NOTE | 2019-01-14 17:03 | PM.PN.1 ---
Subjective Date Patient Seen: 01/14/19 Interval history: Giovana Simeon is a 73-year-old female with a past medical history significant for COPD with nocturnal oxygen dependence and anxiety and depression who presented for acute shortness of breath admitted for acute on chronic hypoxemic and hypercarbic respiratory failure, acute on chronic COPD exacerbation, and aspiration and viral pneumonia. Patient is resting in bed comfortably. She denies pain. She continues to be significantly tachypneic without any improvement. She is on BiPAP 85% of a 24 hour. IV morphine has helped work of breathing slightly. She endorses shortness of breath. She denies headache, chest pain, abdominal pain, nausea, vomiting, fever, chills, diarrhea or constipation. She is voiding via Espinoza catheter and eliminating without difficulty. She continues to be on TPN for nutrition as she is unable to swallow. She is bed-bound due to significant respiratory failure. Once again, we discussed comfort care including: Symptomatic treatment and possibility to eat but for comfort only. Also discussed hospice in detail. Patient does not have a decision currently. Patient does not want CPR, intubation or artificial nutrition through PEG tube. Exam Vital Signs (past 8 hours): - 01/14/19 10:53 01/14/19 12:04 01/14/19 14:00 Temperature 98.0 F Pulse Rate 103 H 97 H Respiratory Rate 18 15 Blood Pressure 168/93 H Pulse Oximetry 96 95 97 01/14/19 15:00 01/14/19 15:26 01/14/19 15:35 Temperature 97.4 F L Pulse Rate 93 H 100 H Respiratory Rate 16 16 Blood Pressure 145/82 H Pulse Oximetry 95 95 95 Fraction of Inspired Oxygen 0.32 Oxygen Delivery Method Nasal Cannula Oxygen Flow Rate 4 Narrative Exam Narrative: General: Elderly female lying in bed on BiPAP, in no acute distress, emaciated and severely cachectic, unable to talk and using white board. HEENT: Normocephalic, atraumatic. External ears without defect. Pupils equal, round, and reactive to light. Anicteric sclerae, moist conjunctivae, and no lid lag. Neck: Supple with full range of motion. No lymphadenopathy or thyromegaly. Cardiovascular: Regular rate and rhythm without murmurs, rubs, or gallops appreciated. Pulmonary: Diminished throughout with very little air movement and scattered rhonchi. No crackles. Abdomen: Soft, scaphoid, bowel sounds present, nontender, nondistended. No hepatosplenomegaly or masses appreciated. Extremities: No clubbing, cyanosis, or edema. Skin: Normal temperature, turgor, and texture; no rash, ulcers, or subcutaneous nodules appreciated. Neurological: Cranial nerves grossly intact. Psychiatric: Depressed mood and flat affect. Alert and appears oriented x 3. Objective Labs Result Diagrams: 01/14/19 04:50 01/14/19 06:35 Labs: Laboratory Results - last 24 hr 01/10/19 01/14/19 01/14/19 04:50 04:50 04:50 WBC 10.8 RBC 4.01 Hgb 12.3 Hct 36.8 MCV 91.8 MCH 30.6 MCHC 33.3 RDW 14.9 H Plt Count 206 Neut % (Auto) Not Reportable Lymph % (Auto) Not Reportable [place] % (Auto) Not Reportable Eos % (Auto) Not Reportable Baso % (Auto) Not Reportable Lymph # (Auto) Not Reportable [place] # (Auto) Not Reportable Baso # (Auto) Not Reportable Total Counted 100 Seg Neutrophils % 92.0 H Band Neutrophils % 4.0 Lymphocytes % (Manual) 3.0 L Monocytes % (Manual) 1.0 L Neutrophils # (Manual) 42391 H Toxic Vacuolation Present H Plt Morphology Comment RBC Morphology See below Poikilocytosis 1+ H Anisocytosis 1+ H Sodium Potassium Chloride Carbon Dioxide BUN Creatinine Estimated GFR BUN/Creatinine Ratio Glucose Calcium Magnesium Total Bilirubin AST ALT Alkaline Phosphatase Total Protein Albumin Globulin Albumin/Globulin Ratio Procalcitonin < 0.05 Anti-Streptolysin O Ab < 50 01/14/19 06:35 WBC RBC Hgb Hct MCV MCH MCHC RDW Plt Count Neut % (Auto) Lymph % (Auto) [place] % (Auto) Eos % (Auto) Baso % (Auto) Lymph # (Auto) [place] # (Auto) Baso # (Auto) Total Counted Seg Neutrophils % Band Neutrophils % Lymphocytes % (Manual) Monocytes % (Manual) Neutrophils # (Manual) Toxic Vacuolation Plt Morphology Comment RBC Morphology Poikilocytosis Anisocytosis Sodium 136 L Potassium 4.3 Chloride 96 L Carbon Dioxide 33 H BUN 21 H Creatinine 0.40 L Estimated GFR > 60.0 BUN/Creatinine Ratio 52.5 H Glucose 280 H Calcium 8.9 Magnesium 1.8 Total Bilirubin 0.2 AST 35 ALT 40 Alkaline Phosphatase 58 Total Protein 5.5 L Albumin 3.0 L Globulin 2.5 Albumin/Globulin Ratio 1.2 Procalcitonin Anti-Streptolysin O Ab Assessment & Plan Assessment & Plan narrative: Giovana Simeon is a 73-year-old female with a past medical history significant for COPD with nocturnal oxygen dependence and anxiety and depression who presented for acute shortness of breath admitted for acute on chronic hypoxemic and hypercarbic respiratory failure, acute on chronic COPD exacerbation and aspiration pneumonia. 1. Acute on chronic hypoxemic and hypercarbic respiratory failure, present on admission. Active. -Patient presented with hypoxemic and hypercarbic respiratory failure and ABG demonstrated acute respiratory acidosis with partial compensation. -Continue BiPAP/triology as much as tolerated and supplemental oxygen when off BiPAP/triology briefly. Not weaning off trilogy or BiPAP readily and no improvement with breathing. -Discussed her case with a metal bending machine operator at [facility], Dr. Brianna Fragoso, who was able to review patient's films and recommended continued BiPAP with comfort measures only as she has end-stage emphysema and is not a candidate for intubation as she would never be able to come off ventilator and if she made it through acute illness would be trached and vent dependent. 2. Acute on chronic end stage emphysema with exacerbation, present on admission. Active. -Patient has advanced centrilobular emphysema and COPD with BMI 15.9 and muscle atrophy. -CXR interpreted by me demonstrates COPD with hyperinflation and flattening of the diaphragms without infiltrate. CTA demonstrated centrilobular emphysema with right middle lobe infiltrate suspicious for aspiration pneumonia as below. -Continue BiPAP/triology as much as tolerated and supplemental oxygen when of BiPAP/triology briefly, as above. -Continue Mucinex 1200 mg twice daily. -Continue methylprednisolone 40 mg every 12 hours. Will titrate down as patient's respiratory status allows. -Continue respiratory therapy evaluation and treatment. DuoNeb every 4 hr while awake and albuterol nebs every 2 hr as needed for shortness of breath. 3. Aspiration and viral pneumonia, present on admission. Active. -See treatment course as above under COPD exacerbation. -CT angiogram negative for PE but does demonstrate new right-sided infiltrate coupled with possibility of aspiration are suggestive of aspiration pneumonia. -Continue levofloxacin and Flagyl. -Ordered complete pneumonia workup including: Respiratory viral PCR which is positive for human metapneumovirus. Strep pneumoniae and Legionella urine antigens, pending. Sputum culture ordered and not collected as cough is not productive. Blood cultures x2 have no growth to date. -Ordered speech therapy evaluation and treatment, pending. 4. Chronic laryngitis and dysphagia with aspiration, secondary to other motor neuron disease, present on admission. Active. -Possibly secondary to chronic inhaled steroids per pulmonology versus vocal cord dysfunction or some other etiology. -Patient has had laryngitis for approximately 6 months. Patient expresses her thoughts with a white board and will voice some words verbally though is uncomfortable speaking. Her speech difficulty sounds like a vocal cord dysfunction. Now unable to swallow. 5. Oral and possibly tracheobroncheal candidiasis, present on admission. Active. -Possibly contributing to dysphagia and vocal cord dysfunction. -Continue diflucan and nystatin swish and swallow. 6. Underweight secondary to advanced end stage emphysema, chronic, present on admission. Presumed stable. -Initial BMI 15.9. -Started TPN for nutrition with high risk of fungemia in a patient with thrush and likely tomasz tracheobronchitis and severely immunocompromised due to age and end stage emphysema. Disposition: Patient status tenuous and leaning toward comfort care if not making significant strides in next several days with treatment.
[2019-01-14] MEDS: [UNRECOGNIZED DRUG - OTHER] IV (17:48)
[2019-01-14] MEDS: MULTIVITAMIN IV (17:48)
[2019-01-14] MEDS: FAT EMULSIONS 50 GM/250 ML EMULSION IV (17:48)
[2019-01-14] MEDS: CALCIUM IV (17:48)
[2019-01-14] MEDS: LYTES IV (17:48)
[2019-01-14] MEDS: TRACE ELEMENTS IV (17:48)
[2019-01-14] MEDS: DEXT IV (17:48)
[2019-01-14] MEDS: levoFLOXacin 750 MG/150 ML PIGGYBACK 100 MG IV (18:44)
[2019-01-14] MEDS: FLUCONAZOLE 200 MG/100 ML PIGGYBACK 50 MG IV (20:23)
[2019-01-15] VITALS (14 sets, daily range): BP systolic 127–142; BP diastolic 69–88; PULSE 97–120; RESP 16–20; TEMP 36.1–36.8; O2SAT 94–97
[2019-01-15] MEDS: ALBUTEROL/IPRATROPIUM 3 ML AMPUL INH ×5 (05:53→21:07)
[2019-01-15] MEDS: INSULIN ASPART 100 UNIT/ML INSULN PEN SUBCUT ×2 (05:56→14:28)
[2019-01-15] MEDS: metroNIDAZOLE 500 MG/100 ML PIGGYBACK 100 MG IV ×3 (05:56→22:27)
--- NOTE | 2019-01-15 09:17 | PM.PN.1 ---
Subjective Date Patient Seen: 01/15/19 Interval history: Giovana Simeon is a 73-year-old female with a past medical history significant for COPD with nocturnal oxygen dependence and anxiety and depression who presented for acute shortness of breath admitted for acute on chronic hypoxemic and hypercarbic respiratory failure, acute on chronic COPD exacerbation, and aspiration and viral pneumonia. Patient is resting in bed comfortably. She denies pain. She continues to be significantly tachypneic without any improvement. She is on BiPAP 85% of a 24 hour period. IV morphine has helped her work of breathing. Received IV Lasix today with mild improvement in subjective shortness of breath. She denies headache, chest pain, abdominal pain, nausea, vomiting, fever, chills, diarrhea or constipation. She is voiding via Espinoza catheter and eliminating without difficulty. She is bed-bound due to significant respiratory failure. Discussed with the patient and her daughter comfort care in detail. The patient wishes to be comfort care only and on medications to keep her comfortable with breathing, discontinuation of TPN, and allowing her to eat for comfort. Scheduled hospice informational visit tomorrow at 10:00 a.m.. Exam Vital Signs (past 8 hours): - 01/15/19 04:00 01/15/19 05:54 01/15/19 07:46 Temperature 97.9 F 97.0 F L Pulse Rate 97 H 103 H 101 H Respiratory Rate 20 20 19 Blood Pressure 142/77 H 136/69 Pulse Oximetry 96 96 95 Fraction of Inspired Oxygen 0.32 Oxygen Delivery Method Nasal Cannula Oxygen Flow Rate 3 Narrative Exam Narrative: General: Elderly female lying in bed on BiPAP, in no acute distress, emaciated and severely cachectic, unable to talk and using white board. HEENT: Normocephalic, atraumatic. External ears without defect. Pupils equal, round, and reactive to light. Anicteric sclerae, moist conjunctivae, and no lid lag. Neck: Supple with full range of motion. No lymphadenopathy or thyromegaly. Cardiovascular: Regular rhythm, tachycardic, without murmurs, rubs, or gallops appreciated. Pulmonary: Diminished throughout with very little air movement and scattered rhonchi. No crackles. Abdomen: Soft, scaphoid, bowel sounds present, nontender, nondistended. No hepatosplenomegaly or masses appreciated. Extremities: No clubbing, cyanosis, or edema. Skin: Normal temperature, turgor, and texture; no rash, ulcers, or subcutaneous nodules appreciated. Neurological: Cranial nerves grossly intact. Psychiatric: Depressed mood and flat affect. Alert and appears oriented x 3. Objective Labs Result Diagrams: 01/14/19 04:50 01/14/19 06:35 Labs: Laboratory Results - last 24 hr 01/10/19 04:50 Anti-Streptolysin O Ab < 50 Assessment & Plan Assessment & Plan narrative: Giovana Simeon is a 73-year-old female with a past medical history significant for COPD with nocturnal oxygen dependence and anxiety and depression who presented for acute shortness of breath admitted for acute on chronic hypoxemic and hypercarbic respiratory failure, acute on chronic COPD exacerbation and aspiration pneumonia. 1. Comfort care. -Continue medications as needed for comfort only including: Morphine, Ativan, methylprednisolone, Diflucan and nystatin swish and swallow. -Continue trilogy and cough assist for comfort care only. -May diurese as needed for comfort. -Allow for patient to eat for comfort only. 2. Acute on chronic hypoxemic and hypercarbic respiratory failure, present on admission. Active. -Patient presented with hypoxemic and hypercarbic respiratory failure and ABG demonstrated acute respiratory acidosis with partial compensation. -Continue BiPAP/triology as much as tolerated and supplemental oxygen when off BiPAP/triology briefly. Not weaning off trilogy or BiPAP readily and no improvement with breathing. -Discussed her case with a retail client solutions analyst at [facility], Dr. Brianna Fragoso, who was able to review patient's films and recommended continued BiPAP with comfort measures only as she has end-stage emphysema and is not a candidate for intubation as she would never be able to come off ventilator and if she made it through acute illness would be trached and vent dependent. -Patient is now comfort care only with morphine and Ativan as needed and steroid to help with work of breathing. 3. Acute on chronic end stage emphysema with exacerbation, present on admission. Active. -Patient has advanced centrilobular emphysema and COPD with BMI 15.9 and muscle atrophy. -CXR interpreted by me demonstrates COPD with hyperinflation and flattening of the diaphragms without infiltrate. CTA demonstrated centrilobular emphysema with right middle lobe infiltrate suspicious for aspiration pneumonia as below. -Continue BiPAP/triology as much as tolerated and supplemental oxygen when of BiPAP/triology, as above. -Continue Mucinex 1200 mg twice daily. -Continue methylprednisolone 40 mg daily. -Continue respiratory therapy evaluation and treatment. DuoNeb every 4 hr while awake and albuterol nebs every 2 hr as needed for shortness of breath. -Patient is now comfort care only with morphine and Ativan as needed and steroid to help with work of breathing. 4. Aspiration and viral pneumonia, present on admission. Active. -See treatment course as above under COPD exacerbation. -CT angiogram negative for PE but does demonstrate new right-sided infiltrate coupled with possibility of aspiration are suggestive of aspiration pneumonia. -Discontinue levofloxacin and Flagyl as patient has completed 7 day course today. -Complete pneumonia workup performed including: Respiratory viral PCR which is positive for human metapneumovirus. Strep pneumoniae and Legionella urine antigens, pending. Sputum culture ordered and not collected as cough is not productive. Blood cultures x2 have no growth to date. -Allowing patient to eat for comfort only. Discontinue TPN as below. 5. Chronic laryngitis and dysphagia with aspiration, secondary to other motor neuron disease, present on admission. Active. -Possibly secondary to chronic inhaled steroids per pulmonology versus vocal cord dysfunction or some other motor neuron etiology. -Patient has had laryngitis for approximately 6 months. Patient expresses her thoughts with a white board and will voice some words verbally though is uncomfortable speaking. Her speech difficulty sounds like a vocal cord dysfunction. Now unable to swallow or clear secretions. -Ordering a cough assist device due to the patient's motor neuron disease causing significant impairment of chest wall and diaphragmatic movement such that it has resulted in inability to clear her retained secretions. 6. Oral and possibly tracheobroncheal candidiasis, present on admission. Active. -Possibly contributing to dysphagia and vocal cord dysfunction. -Continue diflucan and nystatin swish and swallow. 7. Underweight secondary to advanced end stage emphysema, chronic, present on admission. Presumed stable. -Initial BMI 15.9. -Discontinued TPN and will allow patient to eat for comfort only. Disposition: Plan for hospice informational visit tomorrow at 10:00 a.m.. Patient will return to assisted living facility on hospice potentially Friday01/18/2018 versus in Hospital.
[2019-01-15] MEDS: BUDESONIDE 120 PUFF/DEVICE INHALER INH ×2 (09:59→18:03)
[2019-01-15] MEDS: FUROSEMIDE 20 MG/2 ML VIAL IV (10:40)
[2019-01-15] MEDS: NYSTATIN SUSP 500,000 UNIT/5 ML UDC 500000 UNIT PO ×4 (10:46→21:09)
[2019-01-15] MEDS: ENOXAPARIN 40 MG/0.4 ML SYRINGE SUBCUT (10:46)
[2019-01-15] MEDS: INSULIN GLARGINE 100 UNIT/ML 3ML PEN 15 UNIT SUBCUT (10:46)
[2019-01-15] MEDS: MORPHINE 2 MG/ML INJ 1 MG IV ×2 (10:58→16:07)
--- NOTE | 2019-01-15 15:58 | CM.DPC ---
Addendum entered by Elizabet Britton LPN 01/16/19 08:41: Picked up vm this morning from [facility] asking if TPN will be part of the order. Called back to confirm NO TPN and Dr. Ramos's progress note of yesterday afternoon is faxed now to [facility]. VM is left for [facility] Fanny/on over the weekend. Original Note: DCP: continued. Case received discussed in Team Rounds. Was just updated at [address] Ramos re the new POC after her discussion this afternoon with pt and her POA daughter Fay Whittaker: corrected tel #: [phone]. Dr. Ramos says she is transitioning pt now to full comfort care/end of life symptom management and that pt desires to return to the [facility] under Hospice care. Met then with Fay, in process of leaving the ICU after being part of this discussion. She confirms that above plan. (and her correct tel #). Agreed to begin the [facility] process and update her accordingly. She notes she currently is not working. I am off now so that I can attend to what my parviz needs. Referral given to Jason: ELDERW: infor visit is set now for 1100 tomorrow at . She says the first RN/open time is Friday between 2-3 and they can see pt at the [facility] if all is in place. Idalia/BRIANA is updated. She is agreeable to same: says pt already has a hospital bed and her Trilogy, if she wishes to continue to use this. She does confirm that if pt did return to the before [facility] had officially opened pt to service and anything occurred that caused concern for pt or staff (and notes they have med techs on only during the fast food shift supervisor) the staff would have to call 911 and send pt to the hospital. Fay is updated now and will plan to check in with her tomorrow to make sure all is going well with the info visit. Dr. Ramos is updated. She will not be on this weekend. Says she does expect to be back on Thursday 01/18. Pt at this point is floor care but Dr. Ramos says she will remain in ICU setting unless the bed is needed. Pt very much wishes to eat and WAREHOUSE ANALYST is working with pt his afternnoon on some suggestions for this recreational feeding. P: at this point: return to [facility] under [facility] on Friday: 01/18: to arrive before 2:OO. Will follow closely this weekend.
[2019-01-15] MEDS: levoFLOXacin 750 MG/150 ML PIGGYBACK 100 MG IV (19:36)
[2019-01-15] MEDS: FLUCONAZOLE 200 MG/100 ML PIGGYBACK 50 MG IV (21:07)
[2019-01-15] MEDS: MORPHINE 2 MG/ML INJ IV (21:46)
[2019-01-16] VITALS (10 sets, daily range): BP systolic 124–135; BP diastolic 64–96; PULSE 101–110; RESP 14–28; TEMP 36.4–36.9; O2SAT 88–97
[2019-01-16] MEDS: ALBUTEROL/IPRATROPIUM 3 ML AMPUL INH ×4 (00:24→20:12)
--- NOTE | 2019-01-16 00:57 | PC.NURSE ---
Called ESTELLA Lion regarding pts. comfort care status. Per Dr. Ramos progress note, pt. is comfort care and can eat and drink anything she wants. I asked Ayad to make this order official but she declined and will address the issue in am, for now pt. remains NPO and ICU status.
[2019-01-16] MEDS: DEXTROSE 50 % IN WATER 25 GM/50 ML SYRINGE IV (06:14)
--- NOTE | 2019-01-16 06:47 | PC.NURSE ---
Pt's. BG at 6 am was 64, given 1/2 amp of D50 and BG check 20 minutes after was 124. Pt. remains NPO per Ayad.
--- NOTE | 2019-01-16 09:56 | P.PN_ITS ---
Subjective Date Patient Seen: 01/16/19 Interval history: She is seen today to follow up her COPD and expressive aph chip. She is writing on her marker board but appears to be confused and her words are not printed understandably most the time. Yesterday she decided to change to a comfort care trajectory and hospice will be evaluating her today for discharge back to [facility] in 2 days under their supervision. Exam Vital Signs (past 8 hours): - 01/16/19 05:03 01/16/19 07:28 01/16/19 07:45 Temperature 98.2 F 98.5 F Pulse Rate 110 H 104 H 107 H Respiratory Rate 20 16 20 Blood Pressure 132/75 124/64 Pulse Oximetry 96 96 94 01/16/19 08:10 Temperature Pulse Rate Respiratory Rate Blood Pressure Pulse Oximetry 88 L Fraction of Inspired Oxygen 32 Oxygen Delivery Method Nasal Cannula Oxygen Flow Rate 3 Narrative Exam Narrative: She is alert and she is oriented to place. Lungs have wheezing diffusely. Heart is tachycardic without murmur. Rhythm is regular. Extremities have no ankle edema. She is aphasic at baseline and is writing on a marker board but words are challenging to interpret with ut her usual accuracy and methodical printing. Objective Labs Result Diagrams: 01/14/19 04:50 01/14/19 06:35 Assessment & Plan Assessment & Plan narrative: 1. Comfort care. -Continue medications as needed for comfort only including: Morphine, Ativan, scopolamine, Solu-Medrol, nystatin swish and swallow. -Continue trilogy and cough assist for comfort care only. -May diurese as needed for comfort. -Allow for patient to eat for comfort only. 2. Acute on chronic hypoxemic and hypercarbic respiratory failure, present on admission. Active. -Patient presented with hypoxemic and hypercarbic respiratory failure and ABG demonstrated acute respiratory acidosis with partial compensation. -Continue BiPAP/triology as much as tolerated and supplemental oxygen when off BiPAP/triology briefly. Not weaning off trilogy or BiPAP readily and no improvement with breathing. -Discussed her case with a top cutter at [facility], Dr. Brianna Fragoso, who was able to review patient's films and recommended continued BiPAP with comfort measures only as she has end-stage emphysema and is not a candidate for in tubation as she would never be able to come off ventilator and if she made it through acute illness would be trached and vent dependent. -Patient is now comfort care only with morphine and Ativan as needed and steroid to help with work of breathing. 3. Acute on chronic end stage emphysema with exacerbation, present on admission. Active. -Patient has advanced centrilobular emphysema and COPD with BMI 15.9 and muscle atrophy. -CXR interpreted by me demonstrates COPD with hyperinflation and flattening of the diaphragms without infiltrate. CTA demonstrated centrilobular emphysema with right middle lobe infiltrate suspicious for aspiration pneumonia as below. -Continue BiPAP/triology as much as tolerated and supplemental oxygen when off BiPAP/triology, as above. -Continue Mucinex 1200 mg twice daily. -Continue methylprednisolone 40 mg daily. -Continue respiratory therapy evaluation and treatment. DuoNeb every 4 hr while awake and albuterol nebs every 2 hr as needed for shortness of breath. -Patient is now comfort care only with morphine and Ativan as needed and steroid to help with work of breathing. 4. Aspiration and viral pneumonia, present on admission. Active. -See treatment course as above under COPD exacerbation. -CT angiogram negative for PE but does demonstrate new right-sided infiltrate coupled with possibility of aspiration are suggestive of aspiration pneumonia. -Discontinued levofloxacin and Flagyl as patient has completed 7 day course today. -Complete pneumonia workup performed including: Respiratory viral PCR which is positive for human metapneumovirus. Strep pneumoniae and Legionella urine antigens, pending. Sputum culture ordered and not collected as cough is not productive. Blood cultures x2 have no growth to date. -Allowing patient to eat for comfort only. Discontinue TPN as below. 5. Chronic laryngitis and dysphagia with aspiration, secondary to other motor neuron disease, present on admission. Active. -Possibly secondary to chronic inhaled steroids per pulmonology versus vocal cord dysfunction or some other motor neuron etiology. -Patient has had laryngitis for approximately 6 months. Patient expresses her thoughts with a white board and will voice some words verbally though is uncomfortable speaking. Her speech difficulty sounds like a vocal cord dysfunction. Now unable to swallow or clear secretions. -Ordering a cough assist device due to the patient's motor neuron disease causing significant impairment of chest wall and diaphragmatic movement such that it has resulted in inability to clear her retained secretions. 6. Oral and possibly tracheobroncheal candidiasis, present on admission. Active. -Possibly contributing to dysphagia and vocal cord dysfunction. -Continue diflucan and nystatin swish and swallow. 7. Underweight secondary to advanced end stage emphysema, chronic, present on admission. Presumed stable. -Initial BMI 15.9. -Discontinued TPN and will allow patient to eat for comfort only. Disposition: Plan for hospice informational visit today. Patient will return to assisted living facility on hospice potentially Friday01/18/2018.
[2019-01-16] MEDS: MORPHINE 10 MG/0.5 ML ORAL SYRINGE PO ×2 (11:21→14:37)
[2019-01-16] MEDS: LORazepam 2 MG/ML SYRINGE 0.5 MG IV (11:41)
--- NOTE | 2019-01-16 11:41 | CM.DANOTE ---
Addendum entered by Elizabet Britton LPN 01/16/19 12:52: Met again with Fay as planned. She confirms that the equipment at will be fine for her mother when she first arrives there and then [facility] can follow prn. Asked about any prior arrangements made for pt's body after . She said she doubted anything had been set up but does know her mother wishes cremation. She plans to go to [facility] this afternoon to discuss options. SALVADOR: #2presented. She has signed for today: 1230. Original Note: DCP: continued: Checked in with pt's daughter Fay just after [facility] info visit was completed by Maria Antonia Parra/JANELLE CASE SUPERVISOR. Consents have been signed and Fay is going to the [facility] at [facility]'s advice to see what type of equipment she might need. (Idalia/FAY had indicated yesterday that pt had a hospital bed as part of what provides and has o2 already in place. She could admit if need be and with [facility] to switch equipment with their vendors as need be. Discussed same with Maria Antonia). Dr. Juarez is taking over today as hospitalist and discussed case in Team Rounds. He will make sure that the orders fully support the goal of comfort care and with the specifics desired by pt. RT notes in rounds that pt has been expressing desire to not use the oxygen. Plan to see Fay again today when she returns from [facility]. P: at this point remains a d/c to [facility] on Thursday 01/18 with [facility] to open pt to service between 2 and 3:00. Ambulance It is also unclear at this point if pt will survive until Friday. [facility] is aware of this.
--- NOTE | 2019-01-16 13:52 | PC.NURSE ---
Rec'd pt on 4L NC. Laying in bed eyes opened requesting water. Provided oral care. During oral care, pt swallowed rinsing water and then had increase in moist, cough. Sat pt upright and increased O2 from 3LPM to 4LPM via NC with improvement in SPO2 86% to 93%. Per DO note from yesterday, pt is to be comfort care. Dr. Juarez on rounds. Requested clarification of orders. Received orders and placed f/u telephone call to Dr. Juraez to further clarify orders for medications and interventions. Reviewed medications and interventions currently ordered and received TORB to dc those not aligned with pt's wishes. Provided hygiene care 1115, complete bed bath, cath care, linen change, oral care. Pt became tachypneic with increased work of breathing. Reviewed PRN meds available. Pt open to taking morphine to ease work of breathing. Administered with good effect but pt reports some anxiety r/t breathing. Family at bedside is requesting pt be placed back on trilogy. Administered PRN ativan and placed back on trilogy. Pt only tolerated trilogy for about 2 minutes before requesting it off. Placed back on 4L NC. Pt able to rest comfortably after ativan administration. Pt transferred up to acute care room 220. Report given to receiving RN. Called Fay Whittaker and notified of room change.
--- NOTE | 2019-01-16 15:30 | PC.NURSE ---
1400 Assumed care of Pt, transferred into room 220, in bed, reports occasional increased WOB with activity, though obviously tachypnic with any care. 4L via NC. Using whiteboard to communicate with staff and making needs known. Olga tapia. Writes to this RN I am done, I want to go Asked Pt if comfortable and if POC was appropriate, nods yes. Accepts Morphine for resp effort. Offered assist to reposition ,declines. Wet, rattle cough, weak exp effort. Scop patch placed R ear. PICC flushed. BA active.
[2019-01-16] MEDS: SCOPOLAMINE 1 PATCH TOP (15:34)
--- NOTE | 2019-01-16 17:02 | PC.NURSE ---
Addendum entered by Melinda Leone R.N. 01/16/19 21:47: Pt condition remains essentially unchanged. PICC intact/patent. SpO2 96% 4L NC Espinoza cath patent clear yellow urine. Call light w/in reach/ bed alarm on for pt safety. Continue w/plan of care. Original Note: Pt resting at intervals. Denies discomfort or requests. Lungs course/rhonchi/wheezes noted throughtout. SpO2 96% DARLENE PICC intact/patent. Espinoza cath patent clear yellow urine. Call light w/in reach/ bedd alrm on for pt safety.
[2019-01-16] MEDS: BUDESONIDE 120 PUFF/DEVICE INHALER INH (20:12)
[2019-01-17] VITALS (7 sets, daily range): BP systolic 117–126; BP diastolic 75–82; PULSE 95–105; RESP 18–22; TEMP 36.8–36.9; O2SAT 83–97
--- NOTE | 2019-01-17 02:23 | PC.NURSE ---
Addendum entered by Veronica Hassan R.N. 01/17/19 05:48: Slept at intervals. Oxygen remains at 4L/min. Bed has been tilted differing directions q2h as patient not wanting to move off back and wants to have HOB elevated. FLACC score is 0 this morning. Original Note: Patient alert but when attempts to respond verbally words are mumbled. Is able to communicate via nodding head when given choices and gesturing with hands. Did know birthday and age, knew year, knew she was in the hospital but not the town. Breath sounds diminished with expiratory rhonchi throughout. Found on RA (patient had removed nasal cannula) and sat was 83% but when on oxygen at 4L/min sat is 98%. HRR. Denies nausea. BT present but has not had BM x 4d; on comfort care. Indwelling catheter is patent. Not wanting to reposition in bed so bed is tilted to different direction q2h. Denies pain. Fall risk score is moderate; bed alarm is activated. On contact precautions due to being positive for human metapneumovirus. Currently on comfort care with plan to discharge Friday on hospice.
--- NOTE | 2019-01-17 08:32 | PC.NURSE ---
Pt oriented to place, self, denies pain and needs at this time. Repositioned for meal, warm blanket provided.Bed alarm on.
[2019-01-17] MEDS: SODIUM CHLORIDE 0.9% FLUSH 10 ML IV (09:30)
--- NOTE | 2019-01-17 10:25 | P.PN_ITS ---
Subjective Date Patient Seen: 01/17/19 Interval history: She is seen today to follow up her COPD and Chronic Aphasia. She met with hospice yesterday. She will be returning to her assisted living facility tomorrow on hospice. Exam Vital Signs (past 8 hours): - 01/17/19 08:20 Pulse Oximetry 94 Fraction of Inspired Oxygen 36 Oxygen Delivery Method Nasal Cannula Oxygen Flow Rate 4 Narrative Exam Narrative: She is alert and oriented x3, in no apparent distress. Heart is regular rate and rhythm without murmur. Lungs are clear to auscultation bilaterally. Extremities have no ankle edema. There is a Espinoza catheter in place. She appears short of breath. Objective Labs Result Diagrams: 01/14/19 04:50 01/14/19 06:35 Assessment & Plan Assessment & Plan narrative: 1. Comfort care. -Continue medications as needed for comfort only including: Morphine, Ativan, scopolamine, Solu-Medrol, nystatin swish and swallow. -Continue trilogy and cough assist for comfort care only. -Allow for patient to eat for comfort only. 2. Acute on chronic hypoxemic and hypercarbic respiratory failure, present on admission. Active. -Patient presented with hypoxemic and hypercarbic respiratory failure and ABG demonstrated acute respiratory acidosis with partial compensation. -she is apparently stable, declining BiPAP. -previously Discussed with a safety inspector at [facility], Dr. Brianna Fragoso, who was able to review patient's films and recommended continued BiPAP with comfort measures only as she has end-stage emphysema and is not a candidate for intubation as she would never be able to come off ventilator and if she made it through acute illness would be trached and vent dependent. -Patient is now comfort care only with morphine and Ativan as needed and steroids to help with work of breathing. 3. Acute on chronic end stage emphysema with exacerbation, present on admission. Active. -Patient has advanced centrilobular emphysema and COPD with BMI 15.9 and muscle atrophy. -CXR demonstrates COPD with hyperinflation and flattening of the diaphragms without infiltrate. CTA demonstrated centrilobular emphysema with right middle lobe infiltrate suspicious for aspiration pneumonia as below. -Continue BiPAP/triology as much as she wishes and supplemental oxygen when off BiPAP/triology, as above. -Continue Mucinex 1200 mg twice daily. -Continue methylprednisolone 40 mg daily. -Continue respiratory therapy evaluation and treatment. DuoNeb every 4 hr while awake and albuterol nebs every 2 hr as needed for shortness of breath. -Patient is now comfort care only with morphine and Ativan as needed and steroids to help with work of breathing. 4. Aspiration and viral pneumonia, present on admission. Active. -See treatment course as above under COPD exacerbation. -CT angiogram negative for PE but does demonstrate new right-sided infiltrate coupled with possibility of aspiration are suggestive of aspiration pneumonia. -Discontinued levofloxacin and Flagyl as patient has completed 7 day course. -Complete pneumonia workup performed including: Respiratory viral PCR which is positive for human metapneumovirus. Strep pneumoniae and Legionella urine an tigens, pending. Sputum culture ordered and not collected as cough is not productive. Blood cultures x2 have no growth to date. -Allowing patient to eat for comfort only. Discontinued TPN. 5. Chronic laryngitis and dysphagia with aspiration, secondary to other motor neuron disease, present on admission. Active. -Possibly secondary to chronic inhaled steroids per pulmonology versus vocal cord dysfunction or some other motor neuron etiology. -Patient has had laryngitis for approximately 6 months. Patient expresses her thoughts with a white board and will voice some words verbally though is uncomfortable speaking. Her speech difficulty sounds like a vocal cord dysfunction. Now unable to swallow or clear secretions. -Ordering a cough assist device due to the patient's motor neuron disease causing significant impairment of chest wall and diaphragmatic movement such that it has resulted in inability to clear her retained secretions. 6. Oral and possibly tracheobroncheal candidiasis, present on admission. Active. -Possibly contributing to dysphagia and vocal cord dysfunction. -Continue diflucan and nystatin swish and swallow. 7. Underweight secondary to advanced end stage emphysema, chronic, present on admission. Presumed stable. -Initial BMI 15.9. -Discontinued TPN and allow to eat for comfort Disposition: Patient will return to assisted living facility on hospice M onday 01/18/2018.
[2019-01-17] MEDS: ALBUTEROL/IPRATROPIUM 3 ML AMPUL INH ×2 (15:30→19:44)
[2019-01-17] MEDS: NYSTATIN SUSP 500,000 UNIT/5 ML UDC 500000 UNIT PO (21:39)
--- NOTE | 2019-01-18 00:20 | PC.NURSE ---
DETASSELER note: moved legs in bed, adjusted pillows behind head, shifted hips.
[2019-01-18 04:29] VITALS: PULSE 96; RESP 24; O2SAT 92
[2019-01-18] MEDS: ALBUTEROL/IPRATROPIUM 3 ML AMPUL INH (04:29)
[2019-01-18] MEDS: BUDESONIDE 120 PUFF/DEVICE INHALER INH (04:29)
--- NOTE | 2019-01-18 07:12 | PM.DS.1 ---
History of Present Illness Date Patient Seen: 01/09/19 Chief complaint: Respiratory Distress Narrative: Written by Dr. Sullivan: Giovana Simeon is a 73-year-old female resident of [facility] presents with increasing shortness of breath. She has chronic respiratory failure on chronic oxygen about 3 L she usually. She was last here in the hospital in October with COPD exacerbation also had RSV pneumonia earlier in the winter. She had been doing well up until just the last couple days and increasing shortness of breath cough and this evening became very short of breath paramedics were called and she evidently had O2 sats in the 80s at that time. She was brought in here to the emergency room she was given nebulizer treatments and given some Solu-Medrol. Her blood gas showed a pH is 7.28 with pCO2 above 70. She was placed on BiPAP in the ER and is breathing a little bit easier now. The patient has limited ability to speak and soak communicates pretty extensively with a white board. She writes down her answers and complaints and history pretty much on the white board. She denies any fevers denies any chest pains. Discharge Providers Date of admission: 01/09/19 20:26 Discharge Date: 01/18/19 Primary care physician: Luanne Loving MD Consults: 01/09/19 18:49 Consult to Respiratory Therapy Evaluate & Treat Comment: Physician Instructions: Evaluate and treat 01/09/19 22:03 Consult to Respiratory Therapy Evaluate & Treat Comment: bipap management Physician Instructions: Evaluate and treat 01/09/19 22:43 Consult to Dietitian, Adult Routine Comment: Reason For Exam: low BMI. COPD 01/09/19 23:06 Consult to Speech Therapy Evaluate & Treat Comment: possible aspiration Physician Instructions: Evaluate and treat Discharge provider: Yasmin Ramos DO Summary Discharge Diagnosis: 1. Comfort care. 2. Acute on chronic hypoxemic and hypercarbic respiratory failure, present on admission. Active. 3. Acute on chronic end stage emphysema with exacerbation, present on admission. Active. 4. Aspiration and viral pneumonia, present on admission. Resolved. 5. Chronic laryngitis and dysphagia with aspiration, secondary to other motor neuron disease, present on admission. Active. 6. Oral and possibly tracheobroncheal candidiasis, present on admission. Resolving. 7. Underweight secondary to advanced end stage emphysema, chronic, present on admission. Presumed stable. Hospital Course: Giovana Simeon is a 73-year-old female with a past medical history significant for COPD with nocturnal oxygen dependence and anxiety and depression who presented for acute shortness of breath admitted for acute on chronic hypoxemic and hypercarbic respiratory failure, acute on chronic COPD exacerbation, and aspiration and viral pneumonia. 1. Comfort care. -Continued medications as needed for comfort only including: Morphine, Ativan, scopolamine, prednisone, and nystatin swish and swallow. -Continued trilogy for comfort care only. -Allowed patient to eat for comfort only. -Discharged back to assisted living facility at [facility] with hospice to open today. 2. Acute on chronic hypoxemic and hypercarbic respiratory failure, present on admission. Active. -Patient presented with hypoxemic and hypercarbic respiratory failure and ABG demonstrated acute respiratory acidosis with partial compensation. -Discussed with a skin pass operator at [facility], Dr. Brianna Fragoso, who was able to review patient's films and recommended continued BiPAP with comfort measures only as she has end-stage emphysema and is not a candidate for intubation as she would never be able to come off ventilator and if she made it through acute illness would be trached and vent dependent. -Continued triology as much as she wishes and supplemental oxygen when off triology. -Patient is now comfort care only with morphine IR 15 mg every 2 hr, morphine conc every 1 hr and Ativan 0.5 mg every 1 hr as needed for dyspnea and anxiety respectively and prednisone 60 mg daily to help with work of breathing. 3. Acute on chronic end stage emphysema with exacerbation, present on admission. Active. -Patient has advanced centrilobular emphysema and COPD with BMI 15.9 and muscle atrophy. -CXR demonstrates COPD with hyperinflation and flattening of the diaphragms without infiltrate. CTA demonstrated centrilobular emphysema with right middle lobe infiltrate suspicious for aspiration pneumonia as below. -Continued triology as much as she wishes and supplemental oxygen when off triology, as above. -Continued methylprednisolone IV and switched to equivalent dose with prednisone 60 mg daily. -Continued respiratory therapy evaluation and treatment. Continued DuoNeb every 4 hr while awake and albuterol nebs every 2 hr as needed for shortness of breath. -Patient is now comfort care only with morphine and Ativan as needed and steroids to help with work of breathing as above. 4. Aspiration and viral pneumonia, present on admission. Resolved. -See treatment course as above under COPD exacerbation. -CT angiogram negative for PE but does demonstrate new right-sided infiltrate coupled with possibility of aspiration are suggestive of aspiration pneumonia. -Discontinued levofloxacin and Flagyl as patient has completed 7 day course. -Completed pneumonia workup performed including: Respiratory viral PCR which is positive for human metapneumovirus. Sputum culture ordered and not collected as cough is not productive. Blood cultures x2 have no growth to date. -Allowing patient to eat for comfort only. Discontinued TPN. 5. Chronic laryngitis and dysphagia with aspiration, secondary to other motor neuron disease, present on admission. Active. -Possibly secondary to chronic inhaled steroids per pulmonology versus vocal cord dysfunction or some other motor neuron etiology. -Patient has had laryngitis for approximately 6 months. Patient expresses her thoughts with a white board and will voice some words verbally though is uncomfortable speaking. Her speech difficulty sounds like a vocal cord dysfunction. Now unable to swallow or clear secretions. -Ordered a cough assist device due to the patient's motor neuron disease causing significant impairment of chest wall and diaphragmatic movement such that it has resulted in inability to clear her retained secretions. 6. Oral and possibly tracheobroncheal candidiasis, present on admission. Resolving. -Possibly contributing to dysphagia and vocal cord dysfunction. -Continued nystatin swish and swallow and will need to be treated for 10 more days. 7. Underweight secondary to advanced end stage emphysema, chronic, present on admission. Presumed stable. -Initial BMI 15.9. -Discontinued TPN and allow to eat for comfort only. Status at Discharge Functional status at discharge: bed bound Overall status at discharge: patient is not back to baseline Exam Vital Signs (past 8 hours): - 01/18/19 04:29 Pulse Rate 96 H Respiratory Rate 24 Pulse Oximetry 92 Fraction of Inspired Oxygen 36 Oxygen Delivery Method Nasal Cannula Oxygen Flow Rate 4 Narrative Exam Narrative: General: Elderly female lying in bed on BiPAP, in no acute distress, emaciated and severely cachectic, unable to talk and using white board. HEENT: Normocephalic, atraumatic. External ears without defect. Pupils equal, round, and reactive to light. Anicteric sclerae, moist conjunctivae, and no lid lag. Neck: Supple with full range of motion. No lymphadenopathy or thyromegaly. Cardiovascular: Regular rhythm, tachycardic, without murmurs, rubs, or gallops appreciated. Pulmonary: Diminished throughout with very little air movement and diffuse rhonchi. No crackles. Abdomen: Soft, scaphoid, bowel sounds present, nontender, nondistended. No hepatosplenomegaly or masses appreciated. Extremities: No clubbing, cyanosis, or edema. Skin: Normal temperature, turgor, and texture; no rash, ulcers, or subcutaneous nodules appreciated. Neurological: Cranial nerves grossly intact. Psychiatric: Depressed mood and flat affect. Alert and appears oriented x 3. Unable to talk and using white board. Objective Labs Result Diagrams: 01/14/19 04:50 01/14/19 06:35 Discharge Plan Discharge Plan Patient Disposition: Assisted Living Transfer to: [facility] Under care of provider: Dr. Loving Transportation: Facility vehicle Discharge comment: You are being discharged to [place] on hospice. Medications have been prescribed for comfort. The receiving facility has agreed to accept transfer and provide medical treatment.: Yes Discharge Med Rec/Prescriptions Prescriptions: New acetaminophen 650 mg Suppository 650 mg SC Q6HR PRN (Reason: As Needed For Fever/Mild Pain) Qty: 1 RF: 0 ipratropium-albuterol 0.5 mg-3 mg(2.5 mg base)/3 mL Solution For Nebulization 3 ml INH RTQ4HR Qty: 1 RF: 0 lorazepam 2 mg/mL Syringe 0.5 mg IV Q4HR PRN (Reason: Anxiety) Qty: 10 RF: 0 Pulmicort Flexhaler 180 mcg/actuation Aerosol Powdr Breath Activated 2 puff INH BID Qty: 1 RF: 0 lorazepam [Lorazepam Intensol] 2 mg/mL Concentrate 0.5 mg PO Q1HR PRN (Reason: Anxiety) Qty: 10 RF: 0 morphine 2 mg/mL Syringe 2 mg IV Q4H PRN (Reason: Pain, Moderate (4-6)) Qty: 10 RF: 0 morphine 2 mg/mL Syringe 1 mg IV Q4H PRN (Reason: Pain, Moderate (4-6)) Qty: 10 RF: 0 morphine concentrate 10 mg/0.5 mL Syringe 10 mg PO Q1HR PRN (Reason: Pain/Dyspnea) Qty: 10 RF: 0 nystatin 100,000 unit/mL Suspension 500,000 unit PO QID Qty: 10 RF: 0 prednisone 20 mg Tablet 60 mg PO DAILY Qty: 10 RF: 0 scopolamine base [Transderm-Scop] 1 mg over 3 days Patch 3 Day 1 patch topical Q72H PRN (Reason: Secretions) Qty: 10 RF: 0 morphine 15 mg Tablet 15 mg PO Q2HR PRN (Reason: Dyspnea) Qty: 10 RF: 0 Continued acetaminophen 325 mg Tablet 650 mg PO Q4H PRN (Reason: Fever Or Pain) RF: 0 bisacodyl 10 mg Suppository 10 mg SC DAILY PRN (Reason: no BM x 5 days) RF: 0 bisacodyl 5 mg Tablet 5 mg PO PRN PRN (Reason: no bm x 3 days) RF: 0 bisacodyl 5 mg Tablet 10 mg PO PRN PRN (Reason: no bm x 4 days) RF: 0 Discontinued paroxetine HCl [Paxil] 10 MG tablet 20 mg QNOON Qty: 0 RF: 0 albuterol sulfate [Ventolin HFA] 90 MCG/PUFF HFA aerosol inhaler 2 inh IH BIDP PRN (Reason: Shortness Of Breath) Qty: 0 RF: 0 albuterol sulfate 2.5 mg /3 mL (0.083 %) Solution For Nebulization 2.5 mg INHALATION DAILY RF: 0 aspirin 81 mg Tablet,Delayed Release (Dr/Ec) 81 mg PO QNOON RF: 0 lorazepam 0.5 mg Tablet 0.5 mg PO Q6H PRN (Reason: Anxiety) RF: 0 pyridoxine (vitamin B6) [Vitamin B-6] 50 mg Tablet 50 mg PO QNOON RF: 0 Flovent HFA 220 mcg/actuation Hfa Aerosol Inhaler 1 puff INHALATION BID RF: 0 ibuprofen 600 mg Tablet 600 mg PO Q6H PRN (Reason: pain) RF: 0 guaifenesin 600 mg Tablet Extended Release 12hr 1,200 mg PO BID RF: 0 guaifenesin 600 mg Tablet Extended Release 12hr 600 mg PO Q12H PRN (Reason: Congestion) RF: 0 oxycodone-acetaminophen [Percocet] 5 MG/325 MG tablet 1 tab PO Q4HP PRN (Reason: pain) RF: 0 Follow up/Referrals: Luanne Loving MD [Primary Care Provider] - Discharge Orders: Discharge (Order); Ordered 01/18/19 Ordered By: Yasmin Ramos Discharge Health Status Multidrug resistant organism: No MDRO Precautions: Orient Provider Discharge Instructions Diet: Diet as Tolerated Diet comment: Diet is for comfort only Activity: Bed rest Catheter: 2-way Espinoza Oxygen: Trology and 4L supplemental oxygen Visit Report/Discharge Packet Instructions: End of Life Care Discharge Data Primary Care Provider: Luanne Loving Attending Provider: Ezequiel Sullivan Admmarybel Date/Time: 01/09/19 20:26
[2019-01-18 08:00] VITALS: BP 86/42; PULSE 109; RESP 18; TEMP 36.1; O2SAT 96
--- NOTE | 2019-01-18 09:57 | CM.DPC ---
DCP Cont: Faxed discharge referral to [facility] at fax # [phone]. Fax confirmation scanned in. Vannesa Zhou, [facility] [employer]
[2019-01-18 10:08] VITALS: O2SAT 96
--- NOTE | 2019-01-18 10:09 | CM.DPC ---
DCP Cont: Have discharge orders on patient. Printed out med list, Dr. Ramos signed. Discharge summary complete. Spoke to Idalia best [facility], [place], and they confirmed acceptance. Hospice will be at [facility] at approximately 1400. Called [facility], they will be here at approximately 1300. Form completed. faxed signed med sheet and discharge summary to [facility]. Updated, Kacey, daughter, she will meet her there. P: Patient will be discharged to [facility] today on hospice care. Twyla Mcclain RN/Fence Post Cutter
[2019-01-18] MEDS: predniSONE 20 MG TABLET 60 MG PO (11:49)
--- NOTE | 2019-01-18 12:51 | PC.NURSE ---
Addendum entered by Kristin Restrepo R.N. 01/18/19 13:20: Report called to [facility] staff, picc line removed. Patient taken by ambulance staff to [facility]. Patient had on gold colored bracelet at discharge. Original Note: Pt alert, able to make needs know either with yes and no or writing on the white board. Denies pain, is requesting to sit in the chair. Patient bathed and hoyered to chair.
--- NOTE | 2019-01-18 12:53 | PC.NURSE ---
Idalia from [facility] signed for patients four rings that were in hospital safe. Patient agreed that Idalia could sign and take them back to [facility]. Idalia signed them out with coordinator, Liam.
== END 2019-01-18 13:22 | DRG 177 ==
LOC: ED 19:32 → AC 20:26 → ICU 21:24 → AC 01-16 14:46 → ICU 02-23 08:46
PROVIDERS: Internal Medicine; Admitting Provider Internal Medicine; Emergency Provider Emergency Medicine; Family Provider Physician Assistant; PCP Internal Medicine; Visit Provider Internal Medicine
DX: J69.0 Pneumonitis due to inhalation of food and vomit (principal); J96.21 Acute and chronic respiratory failure with hypoxia; J96.02 Acute respiratory failure with hypercapnia; E43 Unspecified severe protein-calorie malnutrition; B37.1 Pulmonary candidiasis; R47.01 Aphasia; Z68.1 Body mass index [BMI] 19.9 or less, adult; B37.0 Candidal stomatitis; G12.20 Motor neuron disease, unspecified; J44.1 Chronic obstructive pulmonary disease with (acute) exacerbation; J44.0 Chronic obstructive pulmonary disease with (acute) lower respiratory infection; Z99.81 Dependence on supplemental oxygen; J37.0 Chronic laryngitis; R13.10 Dysphagia, unspecified; Z87.891 Personal history of nicotine dependence; F41.9 Anxiety disorder, unspecified; F32.9 Major depressive disorder, single episode, unspecified; R34 Anuria and oliguria; Z51.5 Encounter for palliative care; R00.0 Tachycardia, unspecified
CPT/HCPCS: 36415; 36573; 36591; 36592; 36600; 71045; 71275; 80048; 80053; 82805; 82962; 83036; 83605; 83735; 83880; 84145; 85025; 86060; 87040; 87400; 87449; 87633; 87797; 92526; 92610; 93005; 94150; 94640; 94660; 94760; 96365; 96375; 99283; 99285; B4189; J1450; J1642; J1650; J1940; J1956; J2060; J2270; J2920; J2930; J3480; J7613; Q9967